=== PATIENT | female | born 1995 | race Caucasian/White ===

== ENCOUNTER 2020-06-02 16:34 | Outpatient (REF) | payer BC, SELFPAY ==
[2020-06-03 14:20] LABS: Chlamydia Result Negative (Negative); GC Result Negative (Negative)
== END 2020-06-02 16:54 ==
LOC: LBN 16:34
PROVIDERS: PCP Nurse Practitioner Family; Visit Provider Nurse Practitioner Family
DX: Z11.3 Encounter for screening for infections with a predominantly sexual mode of transmission (principal)
CPT/HCPCS: 87491; 87591

== ENCOUNTER 2021-04-19 09:02 | Outpatient (REF) | payer BC, SELFPAY ==
--- NOTE | 2021-04-19 08:30 | PAPFT_PTH ---
PATIENT: Noris Stephens LOC: [facility] U#:[id number] AGE/SX: 26/F ROOM: RE04/19/[address]: FLORIDALMA Allen : 1995 BED: DIS: 04/19/2021 SPEC #: [id number] RECD: 04/19/21 13:15 STATUS: ZOE REQ #: [id number] MARICEL: 04/19/21 08:[address]: Abida Arenas DEPT: [facility] Cytology RECD BY: Bridget Lopez Tissues: 1 - CX/ENDOCX FOR PAP SMEARS Procedures: PAP THIN PREP/UVM Screening Comments: [id number]
== END 2021-04-19 09:03 | disposition home or self-care (01) ==
LOC: LBN 09:02
PROVIDERS: PCP Nurse Practitioner Family; Visit Provider Nurse Practitioner Family
DX: Z12.4 Encounter for screening for malignant neoplasm of cervix (principal)
CPT/HCPCS: 88142

== ENCOUNTER 2021-08-13 03:45 | Outpatient (CLI) | payer MEDICAID, SELFPAY ==
[2021-08-13 15:23] LABS: Kit/Specimen SENT
[2021-08-13 15:29] LABS: Abs Immature Grans 0.03 10^3/uL (0.0-0.06); Absolute Basophil Count 0.04 10^3/uL (0.0-0.2); Absolute Eosinophil Count 0.22 10^3/uL (0.0-0.7); Absolute Lymphocyte Count 2.06 10^3/uL (1.2-3.4); Absolute Monocyte Count 0.71 10^3/uL (0.1-0.8); Basophils % 0.4; HCT 41.2 % (36.0-46.0); HGB 13.7 g/dL (11.2-15.7); Immature Grans % 0.3; Lymphocytes % 18.8; MCH 30.5 pg (27.0-33.0); MCHC 33.3 % (32.0-36.0); MCV 91.8 fL (80-95); MPV 11.7 fL (8.0-11.0); Monocytes % 6.5; Nucleated RBC 0 %; Platelet Count 236 10^3/uL (130-400); RBC 4.49 10^6/uL (3.93-5.22); RDW 13.1 % (11.7-14.6); RDW-SD 44.1 fL; WBC 10.95 10^3/uL (4.4-10.8)
[2021-08-13 15:30] LABS: Absolute Neutrophil Count 7.88 10^3/uL (1.2-6.7)
[2021-08-13 16:21] LABS: TSH (W/Ref FT4) 1.55 uIU/mL (0.36-3.74)
[2021-08-16 10:22] LABS: Hepatitis B Surface Ag Negative (Negative)
[2021-08-16 10:34] LABS: Varicella IgG Antibody Positive (See Note)
[2021-08-16 10:40] LABS: Rubella IgG Ab (UVM) Negative (See Note)
[2021-08-16 10:53] LABS: HIV-1/2 Ag & Ab Screen Negative (Negative)
[2021-08-16 11:01] LABS: Hepatitis C Ab w Rflx HCV PCR Negative (Negative)
[2021-08-17 16:49] LABS: Toxoplasma Ab, IgG Negative (Negative); Toxoplasma Ab, IgM Negative (Negative); Toxoplasma IgG Value <3 IU/mL
[2021-08-18 15:53] LABS: Syphilis IgG w/Reflex Nonreactive (Nonreactive)
[2021-08-22 01:04] LABS: Result Summary NEGATIVE; Specimen WB Whole Blood
== END 2021-08-13 03:46 | disposition home or self-care (01) ==
LOC: LBO 03:54
PROVIDERS: PCP Nurse Practitioner Family; Visit Provider Advanced Practice Midwife
DX: Z34.91 Encounter for supervision of normal pregnancy, unspecified, first trimester
CPT/HCPCS: 36415; 86787; 86803; 86850; 86900; 86901; 87340; 87389; 81220; 84443; 85025; 86762; 86777; 86778; 86780

== ENCOUNTER 2021-08-13 16:32 | Outpatient (REF) | payer MEDICAID, SELFPAY ==
[2021-08-13 16:52] LABS: *AMPHETAMINES SCREEN URINE Negative (Negative); *BARBITURATES SCREEN URINE Negative (Negative); *BENZODIAZEPINES SCREEN URINE Negative (Negative); Cannabinoids THC Negative (Negative); Cocaine Screen,Urine Negative (Negative); METHADONE URINE SCREEN Negative (Negative); OPIATES URINE SCREEN Negative (Negative)
[2021-08-13 16:55] LABS: Tricyclic Antidepressants Negative (Negative)
[2021-08-20 11:47] LABS: Buprenorphine Negative ng/mL (Cutoff: 5.0); Norbuprenorphine Negative ng/mL (Cutoff: 2.5)
== END 2021-08-13 16:33 | disposition home or self-care (01) ==
LOC: LBN 16:32
PROVIDERS: PCP Nurse Practitioner Family; Visit Provider Advanced Practice Midwife
DX: Z34.91 Encounter for supervision of normal pregnancy, unspecified, first trimester
CPT/HCPCS: 80307; 87086

== ENCOUNTER 2021-08-23 03:33 | Outpatient (CLI) | payer MEDICAID, SELFPAY ==
[2021-08-23 09:08] LABS: Glucose,1 Hr (Glucola) 80 mg/dL (80-140)
== END 2021-08-23 03:34 | disposition home or self-care (01) ==
LOC: LBO 03:33
PROVIDERS: PCP Nurse Practitioner Family; Visit Provider Advanced Practice Midwife
DX: Z34.91 Encounter for supervision of normal pregnancy, unspecified, first trimester (principal)
CPT/HCPCS: 36415; 82950

== ENCOUNTER 2021-09-13 02:38 | Outpatient (CLI) | payer MEDICAID, SELFPAY ==
[2021-09-15 12:02] LABS: AFP 23.5 ng/mL; Calculated age at EDD 26 years; Cigarette smoking status non-Smoker; GA used in risk estimate Scan estimate; IVF Pregnancy No; Initial or repeat testing Initial testing; Insulin dependent diabetes No; Maternal Weight 190 lbs; Number of Fetuses 1; Physician Phone Number 802-748-7300; Prev Pregnancy w/NTD No; RECOMMENDED FOLLOW UP None.; Results Summary Normal risk
== END 2021-09-13 02:39 | disposition home or self-care (01) ==
LOC: LBO 02:38
PROVIDERS: PCP Nurse Practitioner Family; Visit Provider Advanced Practice Midwife
DX: Z34.92 Encounter for supervision of normal pregnancy, unspecified, second trimester (principal); Z3A.16 16 weeks gestation of pregnancy; Z36.89 Encounter for other specified antenatal screening
CPT/HCPCS: 36415; 82105

== ENCOUNTER 2021-09-13 20:03 | Outpatient (REF) | payer MEDICAID, SELFPAY ==
[2021-09-14 15:34] LABS: Chlamydia Result Negative (Negative); GC Result Negative (Negative)
== END 2021-09-13 20:04 | disposition home or self-care (01) ==
LOC: LBN 20:03
PROVIDERS: PCP Nurse Practitioner Family; Visit Provider Advanced Practice Midwife
DX: Z34.92 Encounter for supervision of normal pregnancy, unspecified, second trimester (principal); Z3A.16 16 weeks gestation of pregnancy
CPT/HCPCS: 87491; 87591

== ENCOUNTER 2021-10-04 00:20 | Outpatient (CLI) | payer MEDICAID, SELFPAY ==
--- NOTE | 2021-10-04 07:30 | DI.US_ITS ---
Exam(s) US OB 2-3 TRIMESTER EXAM: US OB 2-3 TRIMESTER CLINICAL HISTORY: 18 wk anatomy survey,z34.90. TECHNIQUE: Transabdominal obstetrical ultrasound performed. COMPARISON: No exams were available for comparison FINDINGS: Transabdominal obstetrical ultrasound performed. FINDINGS: Number of fetuses: One. position: Variable Placental grade: 0 Placental location: Anterior. No evidence of previa. BIOMETRIC DATA: BPD: 46 millimeters, 20+ 0 weeks HC: 175 millimeters, 20+ 0 weeks AC: 153 millimeters, 20+ 4 weeks FL: 32 millimeters, 20+ 0 weeks Cisterna Magna: 2.5 millimeters Cerebellum: 2 cm EFW: 341 grms 76% Composite Age: 20+ 1 weeks EDC by US: 20 February 2022 Heart Rate: 140BPM Amniotic fluid: Amount of fluid is visually within normal limits. ANATOMICAL SURVEY: Four-chambered heart: Unremarkable. LVOT: Unremarkable. RVOT: Unremarkable. Left-sided stomach: Unremarkable. urinary bladder: Unremarkable. Bilateral kidneys: Unremarkable. Three-vessel cord: Unremarkable. Cord insertion: Unremarkable. Umbilical artery velocity: Unremarkable. Posterior fossa:Unremarkable. ventricles: Unremarkable. nose: Unremarkable. lips: Unremarkable. palate: Unremarkable. spine: Unremarkable. Two arms and two legs: Unremarkable. IMPRESSION: 1. Single live intrauterine gestation measuring 20 weeks 1 day. 2. Normal anatomic survey. DATA REPOSITORY:
== END 2021-10-04 00:40 ==
PROVIDERS: PCP Nurse Practitioner Family; Visit Provider Advanced Practice Midwife
DX: Z34.92 Encounter for supervision of normal pregnancy, unspecified, second trimester (principal); Z3A.20 20 weeks gestation of pregnancy
CPT/HCPCS: 76805

== ENCOUNTER 2021-11-29 03:24 | Outpatient (CLI) | payer MEDICAID, SELFPAY ==
[2021-11-29 16:15] LABS: HCT 38.8 % (36.0-46.0); HGB 12.9 g/dL (11.2-15.7); MCH 29.8 pg (27.0-33.0); MCHC 33.2 % (32.0-36.0); MCV 90 fL (80-95); MPV 10.8 fL (8.0-11.0); Platelet Count 257 10^3/uL (130-400); RBC 4.33 10^6/uL (3.93-5.22); RDW-SD 43.2 fL; WBC 13.36 10^3/uL (4.4-10.8)
[2021-11-29 16:19] LABS: Glucose,1 Hr (Glucola) 106 mg/dL (80-140)
== END 2021-11-29 03:25 | disposition home or self-care (01) ==
LOC: LBO 03:25
PROVIDERS: PCP Nurse Practitioner Family; Visit Provider Advanced Practice Midwife
DX: Z34.93 Encounter for supervision of normal pregnancy, unspecified, third trimester (principal); Z3A.28 28 weeks gestation of pregnancy
CPT/HCPCS: 36415; 82950; 85027

== ENCOUNTER → 2022-01-03 00:53 | Outpatient (CLI) | payer BC, MEDICAID, SELFPAY ==
--- NOTE | 2022-01-03 07:30 | DI.US_ITS ---
Exam(s) US OB ADITI WEIGHT EXAM: US OB ADITI WEIGHT CLINICAL HISTORY: covid infection in ,U07.1,z34.90 TECHNIQUE: Ultrasound performed using standard protocol. COMPARISON: US US OB 2-3 TRIMESTER from 10/04/2021 FINDINGS: Ob ultrasound was performed utilizing 3rd trimester protocol. biometry is consistent with gest ational age 33 weeks 1 day and EDC of February 20. Estimated weight is 2141 grams. Placenta is anterior with no evidence of placenta previa. There is visually a normal quantity of amn iotic fluid and the ADITI is 19. Fetus is in cephalic presentation. heart rate is noted at 161 BPM IMPRESSION: DATA REPOSITORY:
== END ==
PROVIDERS: PCP Nurse Practitioner Family; Visit Provider Advanced Practice Midwife
DX: Z34.93 Encounter for supervision of normal pregnancy, unspecified, third trimester
CPT/HCPCS: 76816

== ENCOUNTER 2022-01-31 18:20 | Outpatient (REF) | payer BC, MEDICAID, SELFPAY ==
[2022-01-31 20:29] LABS: *AMPHETAMINES SCREEN URINE Negative (Negative); *BARBITURATES SCREEN URINE Negative (Negative); *BENZODIAZEPINES SCREEN URINE Negative (Negative); Cannabinoids THC Negative (Negative); Cocaine Screen,Urine Negative (Negative); METHADONE URINE SCREEN Negative (Negative); OPIATES URINE SCREEN Negative (Negative)
[2022-01-31 20:49] LABS: Tricyclic Antidepressants Negative (Negative)
[2022-02-07 13:36] LABS: Buprenorphine Negative ng/mL (Cutoff: 5.0); Norbuprenorphine Negative ng/mL (Cutoff: 2.5)
== END 2022-01-31 18:21 | disposition home or self-care (01) ==
LOC: LBN 18:20
PROVIDERS: PCP Nurse Practitioner Family; Visit Provider Advanced Practice Midwife
DX: Z34.93 Encounter for supervision of normal pregnancy, unspecified, third trimester (principal); Z36.85 Encounter for antenatal screening for Streptococcus B; Z3A.36 36 weeks gestation of pregnancy
CPT/HCPCS: 80307; 87081

== ENCOUNTER 2022-02-14 11:17 | Outpatient (CLI) | payer BC, MEDICAID, SELFPAY ==
[2022-02-14 11:28] VITALS: BP 129/82; PULSE 100; TEMP 37
[2022-02-14 11:44] VITALS: BP 129/82; PULSE 100
--- NOTE | 2022-02-14 12:46 | W.OBNST ---
Date of service: 02/14/22 Time of Service: 12:46 NST Evaluation Reason for NST Reasons for Nonstress Test: OTHER, SEE COMMENT (elevated BP in office x1) Gestational Age Gestational Age in Weeks and Days: 38 Weeks and 5Days Test and Monitor Explained Test/Monitor Explained: Test Explained, Monitor Explained and Patient Verbalized Understanding Vital Signs Blood Pressure: 129/82 Pulse: 100 Temperature: 98.6 F Urine Results Urine Protein: Negative Urine Ketones: Negative Urine Glucose: Negative Urine Blood: Negative NST Information Date on Monitor: 02/14/22 Time on Monitor: 11:20 Date off Monitor: 02/14/22 Time off Monitor: 12:05 Total Time on Monitor: 45 NST Interventions: PO Hydration NST Evaluation Patient States Movement: Present FHR Baseline: 155 Variability: Moderate 6-25 bpm Accelerations: 15x15 Decelerations: None NST Results: Reactive Note NST Note NST Reviewed and Verified by: Barbara Sams
[2022-02-14 12:47] VITALS: BP 129/82; PULSE 100; TEMP 37
== END 2022-02-14 12:08 | disposition home or self-care (01) ==
LOC: BCD 11:19 → OBS 11:26
PROVIDERS: PCP Nurse Practitioner Family; Visit Provider Advanced Practice Midwife
DX: O26.893 Other specified pregnancy related conditions, third trimester (principal); R03.0 Elevated blood-pressure reading, without diagnosis of hypertension; Z3A.38 38 weeks gestation of pregnancy
CPT/HCPCS: 59025

== ENCOUNTER 2022-02-17 08:38 | Outpatient (CLI) | payer BC, MEDICAID, SELFPAY ==
[2022-02-17 09:07] VITALS: BP 128/79; PULSE 79; TEMP 36.4
[2022-02-17 09:15] VITALS: BP 128/79; PULSE 79
[2022-02-17 09:30] VITALS: BP 129/81; PULSE 83
--- NOTE | 2022-02-17 09:41 | W.OBNST ---
Date of service: 02/17/22 Time of Service: 09:30 NST Evaluation Reason for NST Reasons for Nonstress Test: GESTATIONAL HYPERTENSION Gestational Age Gestational Age in Weeks and Days: 39 Weeks and 1Days Test and Monitor Explained Test/Monitor Explained: Test Explained and Monitor Explained Vital Signs Blood Pressure: 128/79 Pulse: 79 Temperature: 97.5 F Urine Results Urine Protein: Negative Urine Ketones: Negative Urine Glucose: Negative Urine Blood: Negative NST Information Date on Monitor: 02/17/22 Time on Monitor: 09:05 Date off Monitor: 02/17/22 Time off Monitor: 09:32 Total Time on Monitor: 27 NST Interventions: PO Hydration NST Evaluation Patient States Movement: Present FHR Baseline: 135 Variability: Moderate 6-25 bpm Accelerations: 15x15 Decelerations: None NST Results: Reactive Note NST Note Note: NST is reactive and reassuring. Patient has no signs of pre-eclampsia. Had elevated BP at home last night of 140/90. Note to be out of work given and patient will return on 02/21 at 0830 for repeat NST and testing if indicated. ALEX NST Reviewed and Verified by: Mary Reyna
[2022-02-17 09:42] VITALS: BP 128/79; PULSE 79; TEMP 36.4
== END 2022-02-17 09:40 | disposition home or self-care (01) ==
LOC: BCD 08:40 → OBS 09:01
PROVIDERS: PCP Nurse Practitioner Family; Visit Provider Advanced Practice Midwife
DX: O13.3 Gestational [pregnancy-induced] hypertension without significant proteinuria, third trimester (principal); Z3A.39 39 weeks gestation of pregnancy
CPT/HCPCS: 59025

== ENCOUNTER 2022-02-21 09:29 | Inpatient (IN) | payer BC, MEDICAID, SELFPAY ==
[2022-02-21] VITALS (14 sets, daily range): BP systolic 125–157; BP diastolic 74–93; PULSE 82–105; RESP 16–18; TEMP 36.6–37.3; O2SAT 99
[2022-02-21 09:48] LABS: Source Nasal/Nares
[2022-02-21 09:50] LABS: HCT 40.1 % (36.0-46.0); HGB 13.1 g/dL (11.2-15.7); MCHC 32.7 % (32.0-36.0); MCV 89 fL (80-95); MPV 12.3 fL (8.0-11.0); Platelet Count 206 10^3/uL (130-400); RBC 4.51 10^6/uL (3.93-5.22); RDW 14.8 % (11.7-14.6); WBC 8.75 10^3/uL (4.4-10.8)
--- NOTE | 2022-02-21 09:54 | HPE_ITS ---
Date of service: 02/21/22 Time of Service: 09:54 Assessment and Plan Assessment and plan (1) Gestational hypertension without significant proteinuria in third trimester: Status: Acute Assessment and plan: 1. Admit for induction of labor due to GHTN 2. NST done and reactive 3. COVID screen, CBC, CMP, Uric acid, LDH and type and screen as well as pro/creat ratio to be done 4. Reviewed cervical ripening options with patient, will plan misoprostol 25 mcg to posterior fornix of cervix every 4 hours at this time. 5. Patient is planning nitrous and or epidural for pain management. 6. Bedside US confirms cephalic presentation as presenting part is -3. 7. Expect NVD. KH OB-HPI Labor/Delivery History of Present Illness Reason for Visit: Gestational hypertension in third trimester Chief Complaint: Other (unscheduled induction of labor). JAMIE Calculator Estimated Delivery Date Method Current WG Current Estimate 02/23/22 LMP (Certain) 39w 5d Other Estimates 02/28/22 Ultrasound #1 39w 0d History of Present Expected Delivery Route/Plan - CNM FOB/ - Jose Nunescamille (first child) BB yes to circ Rubella non immune, offer MMR Jose and her mother Jayne for labor support, desires epidural and nitrous oxide. GBS negative Specific Issues/Plan 1. BMI 35, early glucola=80 2. Desires all cfDNA, CF & AFP screens, also want SMA testing when available 2a. CF neg, Panorama low prob x5 male fetus; AFP=nml risk for NTD 3. Low dose ASA 81mg/162mg alternating for Nulliparity and BMI of 35 4. Hx PCN and cephalosprin allergies, referral to [facility] Allergy: telehealth appt 09/27 4a. Patient will schedule her allergy testing per consult note scheduled for November 09 4b. No reaction to skin testing - Audra is declining oral testing at this time. 5. Rubella non-immune - discussed w/pt, accepts vaccine 6. COVID+ on home test 08/27 (is vaccinated), already taking low dose ASA, 32 wk growth: 2141 gms/56%ile @ 33 wks, ADITI=19 7. Referral to [facility] due to history of SAD and her concern for potential PPD___ 8. Back pain - referred to PT, stretches taught 9. Out of work 02/17 due to elevated BP's NST 02/21 Assessment: History Reviewed & Current Informed Consent Informed Consent: Induction of Labor and Risk,Benefits,Alternatives Discussed Review of Systems All systems reviewed & are unremarkable except as noted in HPI and below (no BAILEY, visual disturbance ) PFSH All Active Problems Gestational hypertension without significant proteinuria in third trimester (Acute) Low back pain (Acute) (Acute) Seasonal affective disorder (Acute) Per Patient COVID-19 virus infection (Acute) Anitgen test+ on 08/27, pt vaccinated and boosted, mild sx Rubella non-immune status, antepartum (Acute) Cephalosporin adverse reaction (Acute) History of penicillin-type antibiotic allergy (Acute) BMI 35.0-35.9,adult (Acute) (Acute) Asthma (Chronic) Medical History Encounter for IUD insertion Family history of MRSA infection has had MRSA infections twice Family History Father Well adult Mother Well adult Paternal Aunt Breast cancer Social History Smoking risk assessment performed?: No History History 1 Para 0 Hx # Term Pregnancies 0 Multiple births 0 Hx # Pregnancies 0 Ectopic pregnancies 0 AB induced 0 Hx Number of Living Children 0 AB spontaneous 0 Meds Allergies and Home Medications Allergies Allergy/AdvReac Type Severity Reaction Status Date / Time Tide Laundry Soap AdvReac Unknown Uncoded 02/21/22 10:02 Home Medications Medication Instructions Recorded Confirmed Type albuterol sulfate 90 mcg/actuation 2 inh inhalation Q6H PRN 06/02/20 02/21/22 History breath activated powder inhaler prenat.vits,maciej,ccy-[id number] 1 tab PO DAILY 06/23/21 02/21/22 History aspirin 81 mg tablet,delayed 81 mg PO DAILY #90 tabs 08/13/21 02/21/22 Rx release Exam Physical Exam Vital signs: Pulse BP 96 H 135/93 H 02/21/22 08:55 02/21/22 08:55 Vital Signs Reviewed: Yes Constitutional Constitutional: no acute distress and average body habitus Detailed Labor and Delivery Exam Dilation: 0 Effacement (%): 50 station: -3 Cervix position: mid Consistency: soft Becerra Score: Cervical Points Exam 0 1 2 3 Dilation Closed 1-2cm 3-4 cm 5-6cm Effacement 0-30% 40-50% 60-70% 80% Consistency Firm Medium Soft Station -3 -2 -1,0 +1,+2 Position Posterior Mid Anterior BECERRA Score(Cervical Ripeness Score): 4 Amniotic Membrane Status: Intact Contraction Frequency(min): 0 Fetus A Heart Rate Baseline: 125 Monitor Accelerations: 15 X 15 Monitor Decelerations: None Variability: Moderate (6-25 BPM) Est. Weight: 7 lb HEENT Exam HEENT Exam: Normal Neck Exam Neck Exam: Normal Chest/Brest/Axilla Exam Chest Exam: Normal Breast Exam Breast Exam: Not Done Respiratory Exam Respiratory Exam: Normal Cardiovascular Exam Cardiovascular Exam: Abnormal (BP elevated but not SRBP) Abdominal Exam Abdominal Exam: Normal (gravid uterus, US confirmed cephalic presentation, ROT) Rectal Exam Rectal Exam: Not Done Exam Exam: Normal Extremities Exam Extremities Exam: Normal Back/Spine/Pelvis Exam Back Exam: Not Done Pelvis Adequate: Yes Skin Exam Skin Exam: Normal Neurological Exam Neurological Exam: Normal Psychiatric Exam Psychiatric Exam: Normal Results Results Group Beta Strep: Negative Blood Type: A+ Rubella Status: Nonimmune Varicella Immunity: Immune Lab Results: GC CT neg, Hep B and C neg, HIV neg, Panorama cfDNA LR male, second trimester AFP for ONTD neg, early glucose test 80, 28 week glucose test 106, CF neg. Abnormal Lab Findings: Abnormal Labs 02/21/22 09:40 RDW 14.8 H MPV 12.3 H Risk Assessment Risk for Shoulder Dystocia Historical/Initial OB: POSITIVE FOR: Pre- BMI>30; NEGATIVE FOR: Pelvic Abnormality, Previous Shoulder Dystocia or Previous Macrosomia 40 Weeks: NEGATIVE FOR: EFW> 4500 gms, Maternal Weight Gain >40lb or Post Dates Delivery Plan @ 36wks: vaginal delivery expected. Delivery Plan @ 40 wks: vaginal delivery expected. Risk for Pre-Eclampsia Date Initiated/Initials: to start now (@ 12 wks) JK Yes, if one or more: NEGATIVE FOR: Hx Pre-E/Gest HTN, Chronic HTN, Multiple Gestation, Pre-gestational DM, Renal Disease, Systemic Lupus or APA Syndrome Yes, if 2 or more: POSITIVE FOR: Nulliparity and BMI>30; NEGATIVE FOR: Age>= 35 yrs, >10yr btwn pregnancies, ethinicty, Mother/Sister w/ Pre-E or Previous IUGR Risk for Post- Hemorrhage Initial: NEGATIVE FOR: Multiple Gestation, Previous PPH, Known Clotting Deficiency, Grand Multiparity or Anticoagulation At Risk?: Yes (induction of labor for GHTN. ALEX) Counseled re: Active Management: Yes Date/Initials: 02/12/22 ALEX Risks Reviewed Risks Reviewed Upon Admission: Yes
[2022-02-21 10:13] LABS: ALT 17 U/L (14-59); AST 26 U/L (15-37); Albumin 2.5 g/dL (3.4-5.0); Alkaline Phosphatase 155 U/L (46-116); Anion Gap 7.5 mmol/L (3-11); BUN 7 mg/dL (7-18); Bilirubin, Total 0.3 mg/dL (0.2-1.0); CO2 25.5 mmol/L (21.0-32.0); CREATININE 0.7 mg/dL (0.55-1.02); Chloride 101 mmol/L (98-107); Estimated GFR 122.25 (mL/min/1.73m2); Glucose 83 mg/dL (74-106); LDH 148 U/L (81-234); Potassium 4.4 mmol/L (3.5-5.1); Sodium 134 mmol/L (136-145); Total Protein 6.6 g/dL (6.4-8.2); Uric Acid 4.8 mg/dL (2.6-6.0)
[2022-02-21 10:23] LABS: COVID-19 PCR Negative (Negative)
[2022-02-21] MEDS: miSOPROStol 25 MCG TAB VG ×4 (10:42→23:03)
[2022-02-21] MEDS: Lactated Ringers 1,000 ML 1000 ML IV (10:46)
[2022-02-21] MEDS: Normal Saline Flush 10 ML SYR IVP (11:12)
--- NOTE | 2022-02-21 11:57 | W.OBNST ---
Date of service: 02/21/22 Time of Service: 09:00 NST Evaluation Reason for NST Reasons for Nonstress Test: GESTATIONAL HYPERTENSION Gestational Age Gestational Age in Weeks and Days: 39 Weeks and 5Days Test and Monitor Explained Test/Monitor Explained: Test Explained Vital Signs Blood Pressure: 140/92 Pulse: 101 Temperature: 98.2 F Urine Results Urine Protein: Positive Urine Ketones: Positive Urine Glucose: Negative Urine Blood: Negative NST Information Date on Monitor: 02/21/22 Time on Monitor: 08:27 Date off Monitor: 02/21/22 Time off Monitor: 08:59 Total Time on Monitor: 32 NST Interventions: None Contraction Frequency: None NST Evaluation Patient States Movement: Present FHR Baseline: 135 Variability: Moderate 6-25 bpm Accelerations: 15x15 Decelerations: None NST Results: Reactive Note NST Note Note: NST is reactive and reassuring. Admitted for IOL due to GHTN. ALEX NST Reviewed and Verified by: Mary Reyna
--- NOTE | 2022-02-21 14:55 | W.PM.OBNL1 ---
Date of service: 02/21/22 Time of Service: 14:55 Informed Consent Informed Consent: Induction of Labor and Risk,Benefits,Alternatives Discussed Pelvic Exam Dilation: 0 Effacement (%): 50 station: -2 Cervix Position: mid Consistency: soft Contractions Monitor Mode: External Contraction Frequency(min): 2-3 Contraction Duration(sec): 40-50 Intensity: Mild Fetus A Monitor: Novii Heart Rate Baseline: 145 Variability: Moderate (6-25 BPM) Categories: Category I Accelerations: 15 X 15 Decelerations: None Assessment and Plan Assessment and plan (1) Gestational hypertension without significant proteinuria in third trimester: Status: Acute Assessment and plan: 1. Dose #2 of Misoprostol 25 mcg placed at cervical fornix 2. Continue present management and reassess in 4 hours or prn. KH Objective Abnormal lab results 02/21/22 02/21/22 Range/Units 09:40 09:40 RDW 14.8 H (11.7-14.6) % MPV 12.3 H (8.0-11.0) fL Sodium 134 L (136-145) mmol/L Alkaline Phosphatase 155 H (46-116) U/L Albumin 2.5 L (3.4-5.0) g/dL Temp Pulse Resp BP Pulse Ox 98.2 F 96 H 16 132/87 99 02/21/22 11:24 02/21/22 14:53 02/21/22 11:24 02/21/22 14:53 02/21/22 09:57 Laboratory Results WBC 8.75 10^3/uL (4.4-10.8) 02/21/22 09:40 RBC 4.51 10^6/uL (3.93-5.22) 02/21/22 09:40 Hgb 13.1 g/dL (11.2-15.7) 02/21/22 09:40 Hct 40.1 % (36.0-46.0) 02/21/22 09:40 MCV 89 fL (80-95) 02/21/22 09:40 MCH 29.0 pg (27.0-33.0) 02/21/22 09:40 MCHC 32.7 % (32.0-36.0) 02/21/22 09:40 RDW 14.8 % (11.7-14.6) H 02/21/22 09:40 Plt Count 206 10^3/uL (130-400) 02/21/22 09:40 MPV 12.3 fL (8.0-11.0) H 02/21/22 09:40 Sodium 134 mmol/L (136-145) L 02/21/22 09:40 Potassium 4.4 mmol/L (3.5-5.1) 02/21/22 09:40 Chloride 101 mmol/L (98-107) 02/21/22 09:40 Carbon Dioxide 25.5 mmol/L (21.0-32.0) 02/21/22 09:40 Anion Gap 7.5 mmol/L (3-11) 02/21/22 09:40 BUN 7 mg/dL (7-18) 02/21/22 09:40 Creatinine 0.7 mg/dL (0.55-1.02) 02/21/22 09:40 Est GFR (CKD-EPI 2020) 122.25 (mL/min/1.73m2) 02/21/22 09:40 Glucose 83 mg/dL (74-106) 02/21/22 09:40 Uric Acid 4.8 mg/dL (2.6-6.0) 02/21/22 09:40 Calcium 9.0 mg/dL (8.5-10.1) 02/21/22 09:40 Total Bilirubin 0.3 mg/dL (0.2-1.0) 02/21/22 09:40 AST 26 U/L (15-37) 02/21/22 09:40 ALT 17 U/L (14-59) 02/21/22 09:40 Alkaline Phosphatase 155 U/L (46-116) H 02/21/22 09:40 Lactate Dehydrogenase 148 U/L (81-234) 02/21/22 09:40 Total Protein 6.6 g/dL (6.4-8.2) 02/21/22 09:40 Albumin 2.5 g/dL (3.4-5.0) L 02/21/22 09:40 COVID-19 Source Nasal/Nares 02/21/22 09:30 SARS-CoV-2 (PCR) Negative (Negative) 02/21/22 09:30 Patient ABO/Rh A Positive 02/21/22 09:40 Antibody Screen NEGATIVE 02/21/22 09:40 Vital Signs Reviewed: Yes Subjective Interval history since last seen: Feeling cramping but doing well. No questions. Results Hemoglobin/Hematocrit: Hgb 13.1 g/dL (11.2-15.7) 02/21/22 09:40 Hct 40.1 % (36.0-46.0) 02/21/22 09:40 Abnormal Lab Findings: Abnormal Labs 02/21/22 02/21/22 09:40 09:40 RDW 14.8 H MPV 12.3 H Sodium 134 L Alkaline Phosphatase 155 H Albumin 2.5 L
[2022-02-21 18:46] LABS: COMMENT (LAB VIEW ONLY) 35.13 mg/dL; PROTEIN < 6.0 mg/dL
--- NOTE | 2022-02-21 19:06 | PGE_ITS ---
Date of service: 02/21/22 Time of Service: 19:00 Informed Consent Informed Consent: Induction of Labor and Risk,Benefits,Alternatives Discussed Pelvic Exam Dilation: 1 Effacement (%): 60 station: -2 Cervix Position: posterior Consistency: soft BISHOPS Score(Cervical Ripeness Score): 5 Contractions Monitor Mode: External Contraction Frequency(min): 2-8 Contraction Duration(sec): 30-50 Intensity: Mild Fetus A Monitor: Novii Heart Rate Baseline: 150 Variability: Moderate (6-25 BPM) Categories: Category I Accelerations: 10 X 10 Decelerations: None Amniotic Membrane Status: Intact Assessment and Plan Assessment and plan (1) Gestational hypertension without significant proteinuria in third trimester: Status: Acute Assessment and plan: 1. Dose #3 of misoprostol 25 mcg placed in posterior fornix of cervix. 2. Reassess in 4 hours or prn. KH Objective Abnormal lab results 02/21/22 02/21/22 Range/Units 09:40 09:40 RDW 14.8 H (11.7-14.6) % MPV 12.3 H (8.0-11.0) fL Sodium 134 L (136-145) mmol/L Alkaline Phosphatase 155 H (46-116) U/L Albumin 2.5 L (3.4-5.0) g/dL Temp Pulse Resp BP Pulse Ox 98.4 F 105 H 16 140/93 H 99 02/21/22 14:53 02/21/22 18:42 02/21/22 14:53 02/21/22 18:42 02/21/22 09:57 Laboratory Results WBC 8.75 10^3/uL (4.4-10.8) 02/21/22 09:40 RBC 4.51 10^6/uL (3.93-5.22) 02/21/22 09:40 Hgb 13.1 g/dL (11.2-15.7) 02/21/22 09:40 Hct 40.1 % (36.0-46.0) 02/21/22 09:40 MCV 89 fL (80-95) 02/21/22 09:40 MCH 29.0 pg (27.0-33.0) 02/21/22 09:40 MCHC 32.7 % (32.0-36.0) 02/21/22 09:40 RDW 14.8 % (11.7-14.6) H 02/21/22 09:40 Plt Count 206 10^3/uL (130-400) 02/21/22 09:40 MPV 12.3 fL (8.0-11.0) H 02/21/22 09:40 Sodium 134 mmol/L (136-145) L 02/21/22 09:40 Potassium 4.4 mmol/L (3.5-5.1) 02/21/22 09:40 Chloride 101 mmol/L (98-107) 02/21/22 09:40 Carbon Dioxide 25.5 mmol/L (21.0-32.0) 02/21/22 09:40 Anion Gap 7.5 mmol/L (3-11) 02/21/22 09:40 BUN 7 mg/dL (7-18) 02/21/22 09:40 Creatinine 0.7 mg/dL (0.55-1.02) 02/21/22 09:40 Est GFR (CKD-EPI 2020) 122.25 (mL/min/1.73m2) 02/21/22 09:40 Glucose 83 mg/dL (74-106) 02/21/22 09:40 Uric Acid 4.8 mg/dL (2.6-6.0) 02/21/22 09:40 Calcium 9.0 mg/dL (8.5-10.1) 02/21/22 09:40 Total Bilirubin 0.3 mg/dL (0.2-1.0) 02/21/22 09:40 AST 26 U/L (15-37) 02/21/22 09:40 ALT 17 U/L (14-59) 02/21/22 09:40 Alkaline Phosphatase 155 U/L (46-116) H 02/21/22 09:40 Lactate Dehydrogenase 148 U/L (81-234) 02/21/22 09:40 Total Protein 6.6 g/dL (6.4-8.2) 02/21/22 09:40 Albumin 2.5 g/dL (3.4-5.0) L 02/21/22 09:40 Ur Random Creatinine 35.13 mg/dL 02/21/22 10:45 U Random Total Protein < 6.0 mg/dL 02/21/22 10:45 U [place] Prot/Creat Ratio 02/21/22 10:45 COVID-19 Source Nasal/Nares 02/21/22 09:30 SARS-CoV-2 (PCR) Negative (Negative) 02/21/22 09:30 Patient ABO/Rh A Positive 02/21/22 09:40 Antibody Screen NEGATIVE 02/21/22 09:40 Subjective Interval history since last seen: Audra reports contractions are more frequent and a little more uncomfortable. Agrees to 3rd dose of misoprostol. KH Results Hemoglobin/Hematocrit: Hgb 13.1 g/dL (11.2-15.7) 02/21/22 09:40 Hct 40.1 % (36.0-46.0) 02/21/22 09:40 Abnormal Lab Findings: Abnormal Labs 02/21/22 02/21/22 09:40 09:40 RDW 14.8 H MPV 12.3 H Sodium 134 L Alkaline Phosphatase 155 H Albumin 2.5 L
[2022-02-21] MEDS: Zolpidem 5 MG TAB 10 MG PO (23:09)
--- NOTE | 2022-02-21 23:12 | PGE_ITS ---
Date of service: 02/21/22 Time of Service: 23:05 Informed Consent Informed Consent: Induction of Labor and Risk,Benefits,Alternatives Discussed Pelvic Exam Dilation: 1 Effacement (%): 60 station: -2 Cervix Position: posterior Contractions Monitor Mode: External Contraction Frequency(min): 2-8 Contraction Duration(sec): 30-50 Intensity: Mild Fetus A Monitor: Novii Heart Rate Baseline: 150 Variability: Moderate (6-25 BPM) Categories: Category I Assessment and Plan Assessment and plan (1) Gestational hypertension without significant proteinuria in third trimester: Status: Acute Assessment and plan: 1. dose #4 misoprostol placed vaginally 2. Ambien 10 mg PO given 3. Encouraged patient to rest and sleep 4. Will not wake patient for another intervention until 0600 when she will shower and eat breakfast and we will reassess, consider cervidil at that time. 5. Will have BP checked every 4 hours while awake over night unless patient is awake and puts call espinosa on, encouraged her to put espinosa on to get out of bed due to Ambien as well. KH Objective Abnormal lab results 02/21/22 02/21/22 Range/Units 09:40 09:40 RDW 14.8 H (11.7-14.6) % MPV 12.3 H (8.0-11.0) fL Sodium 134 L (136-145) mmol/L Alkaline Phosphatase 155 H (46-116) U/L Albumin 2.5 L (3.4-5.0) g/dL Temp Pulse Resp BP Pulse Ox 99.1 F 87 18 157/81 H 99 02/21/22 21:01 02/21/22 23:10 02/21/22 21:01 02/21/22 23:10 02/21/22 09:57 Laboratory Results WBC 8.75 10^3/uL (4.4-10.8) 02/21/22 09:40 RBC 4.51 10^6/uL (3.93-5.22) 02/21/22 09:40 Hgb 13.1 g/dL (11.2-15.7) 02/21/22 09:40 Hct 40.1 % (36.0-46.0) 02/21/22 09:40 MCV 89 fL (80-95) 02/21/22 09:40 MCH 29.0 pg (27.0-33.0) 02/21/22 09:40 MCHC 32.7 % (32.0-36.0) 02/21/22 09:40 RDW 14.8 % (11.7-14.6) H 02/21/22 09:40 Plt Count 206 10^3/uL (130-400) 02/21/22 09:40 MPV 12.3 fL (8.0-11.0) H 02/21/22 09:40 Sodium 134 mmol/L (136-145) L 02/21/22 09:40 Potassium 4.4 mmol/L (3.5-5.1) 02/21/22 09:40 Chloride 101 mmol/L (98-107) 02/21/22 09:40 Carbon Dioxide 25.5 mmol/L (21.0-32.0) 02/21/22 09:40 Anion Gap 7.5 mmol/L (3-11) 02/21/22 09:40 BUN 7 mg/dL (7-18) 02/21/22 09:40 Creatinine 0.7 mg/dL (0.55-1.02) 02/21/22 09:40 Est GFR (CKD-EPI 2020) 122.25 (mL/min/1.73m2) 02/21/22 09:40 Glucose 83 mg/dL (74-106) 02/21/22 09:40 Uric Acid 4.8 mg/dL (2.6-6.0) 02/21/22 09:40 Calcium 9.0 mg/dL (8.5-10.1) 02/21/22 09:40 Total Bilirubin 0.3 mg/dL (0.2-1.0) 02/21/22 09:40 AST 26 U/L (15-37) 02/21/22 09:40 ALT 17 U/L (14-59) 02/21/22 09:40 Alkaline Phosphatase 155 U/L (46-116) H 02/21/22 09:40 Lactate Dehydrogenase 148 U/L (81-234) 02/21/22 09:40 Total Protein 6.6 g/dL (6.4-8.2) 02/21/22 09:40 Albumin 2.5 g/dL (3.4-5.0) L 02/21/22 09:40 Ur Random Creatinine 35.13 mg/dL 02/21/22 10:45 U Random Total Protein < 6.0 mg/dL 02/21/22 10:45 U [place] Prot/Creat Ratio 02/21/22 10:45 COVID-19 Source Nasal/Nares 02/21/22 09:30 SARS-CoV-2 (PCR) Negative (Negative) 02/21/22 09:30 Patient ABO/Rh A Positive 02/21/22 09:40 Antibody Screen NEGATIVE 02/21/22 09:40 Subjective Interval history since last seen: continues to have mild contractions but able to rest through them. agrees to Ambien and placement of dose #4 misoprostol 25 mcg vaginally. KH Results Hemoglobin/Hematocrit: Hgb 13.1 g/dL (11.2-15.7) 02/21/22 09:40 Hct 40.1 % (36.0-46.0) 02/21/22 09:40 Abnormal Lab Findings: Abnormal Labs 02/21/22 02/21/22 09:40 09:40 RDW 14.8 H MPV 12.3 H Sodium 134 L Alkaline Phosphatase 155 H Albumin 2.5 L
[2022-02-22] VITALS (14 sets, daily range): BP systolic 122–152; BP diastolic 73–98; PULSE 80–113; RESP 18–22; TEMP 36.4–36.9; O2SAT 99–100
--- NOTE | 2022-02-22 07:29 | PGE_ITS ---
Date of service: 02/22/22 Time of Service: 07:10 Informed Consent Informed Consent: Induction of Labor and Risk,Benefits,Alternatives Discussed Pelvic Exam Comments: deferred. KH Contractions Monitor Mode: External Contraction Frequency(min): irregular 1-6 Contraction Duration(sec): 30-50 Intensity: Mild Fetus A Monitor: Novii Heart Rate Baseline: 145 Variability: Moderate (6-25 BPM) Categories: Category I Assessment and Plan Assessment and plan (1) Gestational hypertension without significant proteinuria in third trimester: Status: Acute Assessment and plan: 1. Reviewed options for induction, we plan to do misoprostol 50 mcg SL and reassess in 4 hours. this will be total 150 mcg since beginning of induction. Objective Abnormal lab results 02/21/22 02/21/22 Range/Units 09:40 09:40 RDW 14.8 H (11.7-14.6) % MPV 12.3 H (8.0-11.0) fL Sodium 134 L (136-145) mmol/L Alkaline Phosphatase 155 H (46-116) U/L Albumin 2.5 L (3.4-5.0) g/dL Temp Pulse Resp BP Pulse Ox 98.4 F 113 H 18 142/85 H 99 02/22/22 04:35 02/22/22 06:33 02/22/22 04:35 02/22/22 06:33 02/21/22 09:57 Laboratory Results WBC 8.75 10^3/uL (4.4-10.8) 02/21/22 09:40 RBC 4.51 10^6/uL (3.93-5.22) 02/21/22 09:40 Hgb 13.1 g/dL (11.2-15.7) 02/21/22 09:40 Hct 40.1 % (36.0-46.0) 02/21/22 09:40 MCV 89 fL (80-95) 02/21/22 09:40 MCH 29.0 pg (27.0-33.0) 02/21/22 09:40 MCHC 32.7 % (32.0-36.0) 02/21/22 09:40 RDW 14.8 % (11.7-14.6) H 02/21/22 09:40 Plt Count 206 10^3/uL (130-400) 02/21/22 09:40 MPV 12.3 fL (8.0-11.0) H 02/21/22 09:40 Sodium 134 mmol/L (136-145) L 02/21/22 09:40 Potassium 4.4 mmol/L (3.5-5.1) 02/21/22 09:40 Chloride 101 mmol/L (98-107) 02/21/22 09:40 Carbon Dioxide 25.5 mmol/L (21.0-32.0) 02/21/22 09:40 Anion Gap 7.5 mmol/L (3-11) 02/21/22 09:40 BUN 7 mg/dL (7-18) 02/21/22 09:40 Creatinine 0.7 mg/dL (0.55-1.02) 02/21/22 09:40 Est GFR (CKD-EPI 2020) 122.25 (mL/min/1.73m2) 02/21/22 09:40 Glucose 83 mg/dL (74-106) 02/21/22 09:40 Uric Acid 4.8 mg/dL (2.6-6.0) 02/21/22 09:40 Calcium 9.0 mg/dL (8.5-10.1) 02/21/22 09:40 Total Bilirubin 0.3 mg/dL (0.2-1.0) 02/21/22 09:40 AST 26 U/L (15-37) 02/21/22 09:40 ALT 17 U/L (14-59) 02/21/22 09:40 Alkaline Phosphatase 155 U/L (46-116) H 02/21/22 09:40 Lactate Dehydrogenase 148 U/L (81-234) 02/21/22 09:40 Total Protein 6.6 g/dL (6.4-8.2) 02/21/22 09:40 Albumin 2.5 g/dL (3.4-5.0) L 02/21/22 09:40 Ur Random Creatinine 35.13 mg/dL 02/21/22 10:45 U Random Total Protein < 6.0 mg/dL 02/21/22 10:45 U [place] Prot/Creat Ratio 02/21/22 10:45 COVID-19 Source Nasal/Nares 02/21/22 09:30 SARS-CoV-2 (PCR) Negative (Negative) 02/21/22 09:30 Patient ABO/Rh A Positive 02/21/22 09:40 Antibody Screen NEGATIVE 02/21/22 09:40 Subjective Interval history since last seen: Audra was able to sleep well between midnight and 6. She is showered and feeling ready to move on with induction today. Denies questions. KH Results Hemoglobin/Hematocrit: Hgb 13.1 g/dL (11.2-15.7) 02/21/22 09:40 Hct 40.1 % (36.0-46.0) 02/21/22 09:40 Abnormal Lab Findings: Abnormal Labs 02/21/22 02/21/22 09:40 09:40 RDW 14.8 H MPV 12.3 H Sodium 134 L Alkaline Phosphatase 155 H Albumin 2.5 L
[2022-02-22] MEDS: miSOPROStol 50 MCG TAB SL (07:41)
--- NOTE | 2022-02-22 13:38 | PGE_ITS ---
Date of service: 02/22/22 Time of Service: 13:38 Informed Consent Informed Consent: Induction of Labor (cook catheter) and Risk,Benefits,Alternatives Discussed Pelvic Exam Dilation: 1.5 Effacement (%): 60 station: -2 Cervix Position: mid Consistency: medium (now that provider can insert exam finger through cervix, internal os is medium consistency, external os is soft. KH) BISHOPS Score(Cervical Ripeness Score): 6 Contractions Monitor Mode: External Contraction Frequency(min): 5-10 Contraction Duration(sec): 20-50 Intensity: Mild/Moderate Fetus A Monitor: Novii Heart Rate Baseline: 140 Variability: Moderate (6-25 BPM) Categories: Category I Accelerations: 15 X 15 Decelerations: None Amniotic Membrane Status: Intact Assessment and Plan Assessment and plan (1) Gestational hypertension without significant proteinuria in third trimester: Status: Acute Assessment and plan: 1. continuing cervical ripening, Cook catheter placed after shared decision making session reviewing options of cervical ripening and induction. Patient agrees to mechanical ripening and if needed in 1 hour another dose of SL misoprostol 50 mcg 2. Catheter placed and both uterine and vaginal balloons are filled with 60cc of NS and tolerated well. 3. FHR tracing remains CAT I 4. Tyleonol 650 mg PO for discomfort and may use nitrous if needed. 5. will reassess in 4 hours or as indicated by maternal status. KH Objective Temp Pulse Resp BP Pulse Ox 98.2 F 97 H 20 143/73 H 99 02/22/22 12:55 02/22/22 13:05 02/22/22 12:55 02/22/22 13:05 02/21/22 09:57 Laboratory Results WBC Cancelled 02/22/22 13:22 RBC Cancelled 02/22/22 13:22 Hgb Cancelled 02/22/22 13:22 Hct Cancelled 02/22/22 13:22 MCV Cancelled 02/22/22 13:22 MCH Cancelled 02/22/22 13:22 MCHC Cancelled 02/22/22 13:22 RDW Cancelled 02/22/22 13:22 Plt Count Cancelled 02/22/22 13:22 MPV Cancelled 02/22/22 13:22 Sodium 134 mmol/L (136-145) L 02/21/22 09:40 Potassium 4.4 mmol/L (3.5-5.1) 02/21/22 09:40 Chloride 101 mmol/L (98-107) 02/21/22 09:40 Carbon Dioxide 25.5 mmol/L (21.0-32.0) 02/21/22 09:40 Anion Gap 7.5 mmol/L (3-11) 02/21/22 09:40 BUN 7 mg/dL (7-18) 02/21/22 09:40 Creatinine 0.7 mg/dL (0.55-1.02) 02/21/22 09:40 Est GFR (CKD-EPI 2020) 122.25 (mL/min/1.73m2) 02/21/22 09:40 Glucose 83 mg/dL (74-106) 02/21/22 09:40 Uric Acid 4.8 mg/dL (2.6-6.0) 02/21/22 09:40 Calcium 9.0 mg/dL (8.5-10.1) 02/21/22 09:40 Total Bilirubin 0.3 mg/dL (0.2-1.0) 02/21/22 09:40 AST 26 U/L (15-37) 02/21/22 09:40 ALT 17 U/L (14-59) 02/21/22 09:40 Alkaline Phosphatase 155 U/L (46-116) H 02/21/22 09:40 Lactate Dehydrogenase 148 U/L (81-234) 02/21/22 09:40 Total Protein 6.6 g/dL (6.4-8.2) 02/21/22 09:40 Albumin 2.5 g/dL (3.4-5.0) L 02/21/22 09:40 Ur Random Creatinine 35.13 mg/dL 02/21/22 10:45 U Random Total Protein < 6.0 mg/dL 02/21/22 10:45 U [place] Prot/Creat Ratio 02/21/22 10:45 COVID-19 Source Nasal/Nares 02/21/22 09:30 SARS-CoV-2 (PCR) Negative (Negative) 02/21/22 09:30 Patient ABO/Rh Cancelled 02/22/22 13:22 Antibody Screen NEGATIVE 02/21/22 09:40 Subjective Interval history since last seen: Patient is happy to move forward with another method of cervical ripening due to no cervical changes. After reviewing cook catheter, more misoprostol, combination cook catheter and misoprostol in 1 hour if needed, or attempt at pitocin, patient prefers to try cook catheter and misoprostol 50 mcg in 1 hour if needed. KH Results Hemoglobin/Hematocrit: Hgb Cancelled 02/22/22 13:22 Hct Cancelled 02/22/22 13:22 Abnormal Lab Findings: Abnormal Labs 02/21/22 02/21/22 09:40 09:40 RDW 14.8 H MPV 12.3 H Sodium 134 L Alkaline Phosphatase 155 H Albumin 2.5 L Procedure Procedures: Cervical Ripening Cervical Ripening: Martinez Bulb (cook catheter)
[2022-02-22] MEDS: Acetaminophen 325 MG TAB 650 MG PO ×2 (14:02→19:51)
--- NOTE | 2022-02-22 14:25 | W.PM.OBNL1 ---
Date of service: 02/22/22 Time of Service: 14:25 Informed Consent Informed Consent: Induction of Labor (cook catheter, pitocin) and Risk,Benefits,Alternatives Discussed Pelvic Exam Comments: VE deferred Contractions Monitor Mode: External Contraction Frequency(min): irregular Contraction Duration(sec): irregular Intensity: Mild Fetus A Monitor: Novii Heart Rate Baseline: 145 Variability: Moderate (6-25 BPM) Categories: Category I Accelerations: Present Decelerations: None Amniotic Membrane Status: Intact Assessment and Plan Assessment and plan (1) Gestational hypertension without significant proteinuria in third trimester: Status: Acute Assessment and plan: 1. Plan is to not give misoprostol 50 mcg at 1430 but to change to pitocin as misoprostol has not been effective and patient prefers this plan of care. 2. Risks and benefits have been reviewed 3. Continue to assess every few hours or as indicated by maternal/ status. KH Objective Temp Pulse Resp BP Pulse Ox 98.2 F 97 H 20 143/73 H 99 02/22/22 12:55 02/22/22 13:05 02/22/22 12:55 02/22/22 13:05 02/21/22 09:57 Laboratory Results WBC Cancelled 02/22/22 13:22 RBC Cancelled 02/22/22 13:22 Hgb Cancelled 02/22/22 13:22 Hct Cancelled 02/22/22 13:22 MCV Cancelled 02/22/22 13:22 MCH Cancelled 02/22/22 13:22 MCHC Cancelled 02/22/22 13:22 RDW Cancelled 02/22/22 13:22 Plt Count Cancelled 02/22/22 13:22 MPV Cancelled 02/22/22 13:22 Sodium 134 mmol/L (136-145) L 02/21/22 09:40 Potassium 4.4 mmol/L (3.5-5.1) 02/21/22 09:40 Chloride 101 mmol/L (98-107) 02/21/22 09:40 Carbon Dioxide 25.5 mmol/L (21.0-32.0) 02/21/22 09:40 Anion Gap 7.5 mmol/L (3-11) 02/21/22 09:40 BUN 7 mg/dL (7-18) 02/21/22 09:40 Creatinine 0.7 mg/dL (0.55-1.02) 02/21/22 09:40 Est GFR (CKD-EPI 2020) 122.25 (mL/min/1.73m2) 02/21/22 09:40 Glucose 83 mg/dL (74-106) 02/21/22 09:40 Uric Acid 4.8 mg/dL (2.6-6.0) 02/21/22 09:40 Calcium 9.0 mg/dL (8.5-10.1) 02/21/22 09:40 Total Bilirubin 0.3 mg/dL (0.2-1.0) 02/21/22 09:40 AST 26 U/L (15-37) 02/21/22 09:40 ALT 17 U/L (14-59) 02/21/22 09:40 Alkaline Phosphatase 155 U/L (46-116) H 02/21/22 09:40 Lactate Dehydrogenase 148 U/L (81-234) 02/21/22 09:40 Total Protein 6.6 g/dL (6.4-8.2) 02/21/22 09:40 Albumin 2.5 g/dL (3.4-5.0) L 02/21/22 09:40 Ur Random Creatinine 35.13 mg/dL 02/21/22 10:45 U Random Total Protein < 6.0 mg/dL 02/21/22 10:45 U [place] Prot/Creat Ratio 02/21/22 10:45 COVID-19 Source Nasal/Nares 02/21/22 09:30 SARS-CoV-2 (PCR) Negative (Negative) 02/21/22 09:30 Patient ABO/Rh Cancelled 02/22/22 13:22 Antibody Screen NEGATIVE 02/21/22 09:40 Subjective Interval history since last seen: Patient is interested in starting piocin to encourage contractions with cook catheter in as misoprostol has not been effective to date. Will change plan of care to pitocin. KH Interventions Induction Indication: Gestational Hypertension, Type of Induction: Martinez Bulb and Pitocin rate at(mU/min): 2 will increase by 2 mu every 30 minutes until effective uterine contractions every 2-3 minutes causing cervical changes. KH ., Results Hemoglobin/Hematocrit: Hgb Cancelled 02/22/22 13:22 Hct Cancelled 02/22/22 13:22 Abnormal Lab Findings: Abnormal Labs 02/21/22 02/21/22 09:40 09:40 RDW 14.8 H MPV 12.3 H Sodium 134 L Alkaline Phosphatase 155 H Albumin 2.5 L
[2022-02-22] MEDS: Lactated Ringers 1,000 ML 200 ML IV (15:11)
[2022-02-22] MEDS: Oxytocin/Normal Saline 30 UNIT/500 ML BAG 2 UNITS IV (15:12)
[2022-02-22] MEDS: Normal Saline Flush 10 ML SYR IVP (15:12)
--- NOTE | 2022-02-22 18:45 | PGE_ITS ---
Date of service: 02/22/22 Time of Service: 18:45 Informed Consent Informed Consent: Induction of Labor (cook catheter, pitocin) and Risk,Benefits,Alternatives Discussed Pelvic Exam Comments: VE deferred. Contractions Monitor Mode: External Contraction Frequency(min): 4-8 Contraction Duration(sec): 30-50 Intensity: Mild Fetus A Monitor: Novii Heart Rate Baseline: 145 Variability: Moderate (6-25 BPM) Accelerations: 10 X 10 Decelerations: Variable (not recurrent, with ron of 110) Amniotic Membrane Status: Intact Assessment Note: patient is repositioned and currently no variable decel for over 20 minutes. Assessment and Plan Assessment and plan (1) Gestational hypertension without significant proteinuria in third trimester: Status: Acute Assessment and plan: 1. currently pitocin is at 10 mu and being increased as indicated 2. Cook catheter remains in place 3. Patient tolerating procedure well 4. Reassess in 4 hours or prn. Objective Temp Pulse Resp BP Pulse Ox 98.2 F 90 22 128/80 99 02/22/22 18:27 02/22/22 18:28 02/22/22 18:27 02/22/22 18:28 02/21/22 09:57 Laboratory Results WBC Cancelled 02/22/22 13:22 RBC Cancelled 02/22/22 13:22 Hgb Cancelled 02/22/22 13:22 Hct Cancelled 02/22/22 13:22 MCV Cancelled 02/22/22 13:22 MCH Cancelled 02/22/22 13:22 MCHC Cancelled 02/22/22 13:22 RDW Cancelled 02/22/22 13:22 Plt Count Cancelled 02/22/22 13:22 MPV Cancelled 02/22/22 13:22 Sodium 134 mmol/L (136-145) L 02/21/22 09:40 Potassium 4.4 mmol/L (3.5-5.1) 02/21/22 09:40 Chloride 101 mmol/L (98-107) 02/21/22 09:40 Carbon Dioxide 25.5 mmol/L (21.0-32.0) 02/21/22 09:40 Anion Gap 7.5 mmol/L (3-11) 02/21/22 09:40 BUN 7 mg/dL (7-18) 02/21/22 09:40 Creatinine 0.7 mg/dL (0.55-1.02) 02/21/22 09:40 Est GFR (CKD-EPI 2020) 122.25 (mL/min/1.73m2) 02/21/22 09:40 Glucose 83 mg/dL (74-106) 02/21/22 09:40 Uric Acid 4.8 mg/dL (2.6-6.0) 02/21/22 09:40 Calcium 9.0 mg/dL (8.5-10.1) 02/21/22 09:40 Total Bilirubin 0.3 mg/dL (0.2-1.0) 02/21/22 09:40 AST 26 U/L (15-37) 02/21/22 09:40 ALT 17 U/L (14-59) 02/21/22 09:40 Alkaline Phosphatase 155 U/L (46-116) H 02/21/22 09:40 Lactate Dehydrogenase 148 U/L (81-234) 02/21/22 09:40 Total Protein 6.6 g/dL (6.4-8.2) 02/21/22 09:40 Albumin 2.5 g/dL (3.4-5.0) L 02/21/22 09:40 Ur Random Creatinine 35.13 mg/dL 02/21/22 10:45 U Random Total Protein < 6.0 mg/dL 02/21/22 10:45 U [place] Prot/Creat Ratio 02/21/22 10:45 COVID-19 Source Nasal/Nares 02/21/22 09:30 SARS-CoV-2 (PCR) Negative (Negative) 02/21/22 09:30 Patient ABO/Rh Cancelled 02/22/22 13:22 Antibody Screen NEGATIVE 02/21/22 09:40 Vital Signs Reviewed: Yes Subjective Interval history since last seen: Audra is on floor in a hands and knees position over birthing ball due to lower back discomfort. She denies LOF or bleeding. Cook catheter remains intact. States she is more uncomfortable than she has been throughout this process. Results Hemoglobin/Hematocrit: Hgb Cancelled 02/22/22 13:22 Hct Cancelled 02/22/22 13:22 Abnormal Lab Findings: Abnormal Labs 02/21/22 02/21/22 09:40 09:40 RDW 14.8 H MPV 12.3 H Sodium 134 L Alkaline Phosphatase 155 H Albumin 2.5 L
--- NOTE | 2022-02-22 22:44 | PGE_ITS ---
Date of service: 02/22/22 Time of Service: 22:44 Informed Consent Informed Consent: Induction of Labor (cook catheter, pitocin), Risk,Benefits,Alternatives Discussed and Other (Nitrous use) Pelvic Exam Comments: VE deferred as Cook Catheter remains in place. Contractions Monitor Mode: External Contraction Frequency(min): irregular 1-5 Contraction Duration(sec): 20-60 Intensity: Mild/Moderate Fetus A Monitor: Novii Heart Rate Baseline: 128 Variability: Moderate (6-25 BPM) Categories: Category I Accelerations: 10 X 10 Decelerations: None Assessment and Plan Assessment and plan (1) Gestational hypertension without significant proteinuria in third trimester: Status: Acute Assessment and plan: 1. Nitrous oxide for assistance with pain management. 2. Plan to remove cook catheter between 1 and 2 am and reassess cervix at that time 3. Consult with Dr. Wiseman done to verify that increasing pitocin to 26 mu is acceptable with reassuring tracing. 4. Consider AROM if significant cervical changes occur. Objective Temp Pulse Resp BP Pulse Ox 97.6 F 80 18 134/87 100 02/22/22 20:31 02/22/22 20:31 02/22/22 20:31 02/22/22 20:31 02/22/22 20:31 Laboratory Results WBC Cancelled 02/22/22 13:22 RBC Cancelled 02/22/22 13:22 Hgb Cancelled 02/22/22 13:22 Hct Cancelled 02/22/22 13:22 MCV Cancelled 02/22/22 13:22 MCH Cancelled 02/22/22 13:22 MCHC Cancelled 02/22/22 13:22 RDW Cancelled 02/22/22 13:22 Plt Count Cancelled 02/22/22 13:22 MPV Cancelled 02/22/22 13:22 Sodium 134 mmol/L (136-145) L 02/21/22 09:40 Potassium 4.4 mmol/L (3.5-5.1) 02/21/22 09:40 Chloride 101 mmol/L (98-107) 02/21/22 09:40 Carbon Dioxide 25.5 mmol/L (21.0-32.0) 02/21/22 09:40 Anion Gap 7.5 mmol/L (3-11) 02/21/22 09:40 BUN 7 mg/dL (7-18) 02/21/22 09:40 Creatinine 0.7 mg/dL (0.55-1.02) 02/21/22 09:40 Est GFR (CKD-EPI 2020) 122.25 (mL/min/1.73m2) 02/21/22 09:40 Glucose 83 mg/dL (74-106) 02/21/22 09:40 Uric Acid 4.8 mg/dL (2.6-6.0) 02/21/22 09:40 Calcium 9.0 mg/dL (8.5-10.1) 02/21/22 09:40 Total Bilirubin 0.3 mg/dL (0.2-1.0) 02/21/22 09:40 AST 26 U/L (15-37) 02/21/22 09:40 ALT 17 U/L (14-59) 02/21/22 09:40 Alkaline Phosphatase 155 U/L (46-116) H 02/21/22 09:40 Lactate Dehydrogenase 148 U/L (81-234) 02/21/22 09:40 Total Protein 6.6 g/dL (6.4-8.2) 02/21/22 09:40 Albumin 2.5 g/dL (3.4-5.0) L 02/21/22 09:40 Ur Random Creatinine 35.13 mg/dL 02/21/22 10:45 U Random Total Protein < 6.0 mg/dL 02/21/22 10:45 U [place] Prot/Creat Ratio 02/21/22 10:45 COVID-19 Source Nasal/Nares 02/21/22 09:30 SARS-CoV-2 (PCR) Negative (Negative) 02/21/22 09:30 Patient ABO/Rh Cancelled 02/22/22 13:22 Antibody Screen NEGATIVE 02/21/22 09:40 Vital Signs Reviewed: Yes Subjective Interval history since last seen: reporting increased back pain with contractions. Has been out of bed ambulating and on hands and knees. Now requesting nitrous for additional pain relief. KH Interventions Pain Management Interventions: Comfort Measures , Ambulation, Birthing Ball, Breathing/Relaxation Techniques and Position Change and Nitrous Oxide , patient instructed on proper use and expected outcome of use of nitrous oxide, denies questions. KH . Results Hemoglobin/Hematocrit: Hgb Cancelled 02/22/22 13:22 Hct Cancelled 02/22/22 13:22 Abnormal Lab Findings: Abnormal Labs 02/21/22 02/21/22 09:40 09:40 RDW 14.8 H MPV 12.3 H Sodium 134 L Alkaline Phosphatase 155 H Albumin 2.5 L
[2022-02-22] MEDS: Lactated Ringers 1,000 ML 125 ML IV (22:59)
[2022-02-23] VITALS (163 sets, daily range): BP systolic 115–142; BP diastolic 63–89; PULSE 60–112; RESP 16–20; TEMP 36.6–37.5; O2SAT 97–100; BMI 40.2
--- NOTE | 2022-02-23 01:07 | W.PM.OBNL1 ---
Date of service: 02/23/22 Time of Service: 01:07 Informed Consent Informed Consent: Induction of Labor (cook catheter, pitocin), Risk,Benefits,Alternatives Discussed and Other (Nitrous use) Pelvic Exam Dilation: 4 Effacement (%): 90 station: -2 Cervix Position: mid Consistency: soft Contractions Monitor Mode: External Contraction Frequency(min): 2-4 Contraction Duration(sec): 30-50 Intensity: Mild/Moderate Fetus A Monitor: Novii Heart Rate Baseline: 130 Variability: Moderate (6-25 BPM) Categories: Category I Accelerations: 15 X 15 Decelerations: None Amniotic Membrane Status: Intact Assessment and Plan Assessment and plan (1) Gestational hypertension without significant proteinuria in third trimester: Status: Acute Assessment and plan: 1. Cook catheter removed. Cervix 4/90/-2 2. due to patient fatigue we will allow period of 2-3 hours of rest with pitocin decreased to half its current rate 3. Patient encouraged to sleep 4. after nap will restart increasing pitocin and consider AROM 5. continue to expect NVD. KH Objective Temp Pulse Resp BP Pulse Ox 97.6 F 73 18 134/84 100 02/22/22 20:31 02/23/22 01:02 02/22/22 23:16 02/23/22 01:02 02/23/22 01:00 Laboratory Results WBC Cancelled 02/22/22 13:22 RBC Cancelled 02/22/22 13:22 Hgb Cancelled 02/22/22 13:22 Hct Cancelled 02/22/22 13:22 MCV Cancelled 02/22/22 13:22 MCH Cancelled 02/22/22 13:22 MCHC Cancelled 02/22/22 13:22 RDW Cancelled 02/22/22 13:22 Plt Count Cancelled 02/22/22 13:22 MPV Cancelled 02/22/22 13:22 Sodium 134 mmol/L (136-145) L 02/21/22 09:40 Potassium 4.4 mmol/L (3.5-5.1) 02/21/22 09:40 Chloride 101 mmol/L (98-107) 02/21/22 09:40 Carbon Dioxide 25.5 mmol/L (21.0-32.0) 02/21/22 09:40 Anion Gap 7.5 mmol/L (3-11) 02/21/22 09:40 BUN 7 mg/dL (7-18) 02/21/22 09:40 Creatinine 0.7 mg/dL (0.55-1.02) 02/21/22 09:40 Est GFR (CKD-EPI 2020) 122.25 (mL/min/1.73m2) 02/21/22 09:40 Glucose 83 mg/dL (74-106) 02/21/22 09:40 Uric Acid 4.8 mg/dL (2.6-6.0) 02/21/22 09:40 Calcium 9.0 mg/dL (8.5-10.1) 02/21/22 09:40 Total Bilirubin 0.3 mg/dL (0.2-1.0) 02/21/22 09:40 AST 26 U/L (15-37) 02/21/22 09:40 ALT 17 U/L (14-59) 02/21/22 09:40 Alkaline Phosphatase 155 U/L (46-116) H 02/21/22 09:40 Lactate Dehydrogenase 148 U/L (81-234) 02/21/22 09:40 Total Protein 6.6 g/dL (6.4-8.2) 02/21/22 09:40 Albumin 2.5 g/dL (3.4-5.0) L 02/21/22 09:40 Ur Random Creatinine 35.13 mg/dL 02/21/22 10:45 U Random Total Protein < 6.0 mg/dL 02/21/22 10:45 U [place] Prot/Creat Ratio 02/21/22 10:45 COVID-19 Source Nasal/Nares 02/21/22 09:30 SARS-CoV-2 (PCR) Negative (Negative) 02/21/22 09:30 Patient ABO/Rh Cancelled 02/22/22 13:22 Antibody Screen NEGATIVE 02/21/22 09:40 Vital Signs Reviewed: Yes Subjective Interval history since last seen: has been able to nap some. feels fatigued. tolerates cook catheter coming out well. 4cm 90 -2 at time catheter was drained and removed. patient would appreciate a period of rest. Results Hemoglobin/Hematocrit: Hgb Cancelled 02/22/22 13:22 Hct Cancelled 02/22/22 13:22 Abnormal Lab Findings: Abnormal Labs 02/21/22 02/21/22 09:40 09:40 RDW 14.8 H MPV 12.3 H Sodium 134 L Alkaline Phosphatase 155 H Albumin 2.5 L
--- NOTE | 2022-02-23 03:08 | W.PM.OBNL1 ---
Date of service: 02/23/22 Time of Service: 03:08 Informed Consent Informed Consent: Induction of Labor (cook catheter, pitocin), Risk,Benefits,Alternatives Discussed and Other (Nitrous use) Pelvic Exam Comments: deferred. KH Contractions Monitor Mode: External Contraction Frequency(min): irregular Contraction Duration(sec): irregular Intensity: Mild/Moderate Fetus A Monitor: Novii Heart Rate Baseline: 120 Variability: Moderate (6-25 BPM) Categories: Category I Accelerations: 15 X 15 Decelerations: None Assessment and Plan Assessment and plan (1) Gestational hypertension without significant proteinuria in third trimester: Status: Acute Assessment and plan: 1. Pitocin to begin increasing from 10 mu up to max of 26 mu at this time. 2. Encouraged continued napping until regular and painful contractions, will reassess cervix at that time. 3. Expect NVD. KH Objective Temp Pulse Resp BP Pulse Ox 98 F 73 16 134/84 99 02/23/22 01:02 02/23/22 01:02 02/23/22 01:02 02/23/22 01:02 02/23/22 01:02 Laboratory Results WBC Cancelled 02/22/22 13:22 RBC Cancelled 02/22/22 13:22 Hgb Cancelled 02/22/22 13:22 Hct Cancelled 02/22/22 13:22 MCV Cancelled 02/22/22 13:22 MCH Cancelled 02/22/22 13:22 MCHC Cancelled 02/22/22 13:22 RDW Cancelled 02/22/22 13:22 Plt Count Cancelled 02/22/22 13:22 MPV Cancelled 02/22/22 13:22 Sodium 134 mmol/L (136-145) L 02/21/22 09:40 Potassium 4.4 mmol/L (3.5-5.1) 02/21/22 09:40 Chloride 101 mmol/L (98-107) 02/21/22 09:40 Carbon Dioxide 25.5 mmol/L (21.0-32.0) 02/21/22 09:40 Anion Gap 7.5 mmol/L (3-11) 02/21/22 09:40 BUN 7 mg/dL (7-18) 02/21/22 09:40 Creatinine 0.7 mg/dL (0.55-1.02) 02/21/22 09:40 Est GFR (CKD-EPI 2020) 122.25 (mL/min/1.73m2) 02/21/22 09:40 Glucose 83 mg/dL (74-106) 02/21/22 09:40 Uric Acid 4.8 mg/dL (2.6-6.0) 02/21/22 09:40 Calcium 9.0 mg/dL (8.5-10.1) 02/21/22 09:40 Total Bilirubin 0.3 mg/dL (0.2-1.0) 02/21/22 09:40 AST 26 U/L (15-37) 02/21/22 09:40 ALT 17 U/L (14-59) 02/21/22 09:40 Alkaline Phosphatase 155 U/L (46-116) H 02/21/22 09:40 Lactate Dehydrogenase 148 U/L (81-234) 02/21/22 09:40 Total Protein 6.6 g/dL (6.4-8.2) 02/21/22 09:40 Albumin 2.5 g/dL (3.4-5.0) L 02/21/22 09:40 Ur Random Creatinine 35.13 mg/dL 02/21/22 10:45 U Random Total Protein < 6.0 mg/dL 02/21/22 10:45 U [place] Prot/Creat Ratio 02/21/22 10:45 COVID-19 Source Nasal/Nares 02/21/22 09:30 SARS-CoV-2 (PCR) Negative (Negative) 02/21/22 09:30 Patient ABO/Rh Cancelled 02/22/22 13:22 Antibody Screen NEGATIVE 02/21/22 09:40 Vital Signs Reviewed: Yes Subjective Interval history since last seen: Audra is awake and ready to begin increasing pitocin. Declines amniotomy at this time. She was able to sleep and feels better and states she will continue to nap now while waiting for increased contractions. Reports some bloody show when out of bed to Results Hemoglobin/Hematocrit: Hgb Cancelled 02/22/22 13:22 Hct Cancelled 02/22/22 13:22 Abnormal Lab Findings: Abnormal Labs 02/21/22 02/21/22 09:40 09:40 RDW 14.8 H MPV 12.3 H Sodium 134 L Alkaline Phosphatase 155 H Albumin 2.5 L
--- NOTE | 2022-02-23 06:04 | W.PM.OBNL1 ---
Date of service: 02/23/22 Time of Service: 06:04 Informed Consent Informed Consent: Induction of Labor (cook catheter, pitocin), Risk,Benefits,Alternatives Discussed and Other (Nitrous use) Pelvic Exam Dilation: 4.5 Effacement (%): 90 Cervix Position: posterior Consistency: soft BISHOPS Score(Cervical Ripeness Score): 8 Contractions Monitor Mode: External Contraction Frequency(min): 2-4 Contraction Duration(sec): 40-60 Intensity: Moderate Fetus A Monitor: Novii Heart Rate Baseline: 130 Variability: Moderate (6-25 BPM) Categories: Category I Accelerations: 15 X 15 Decelerations: None Amniotic Membrane Status: Ruptured Rupture Method: Artifical Amniotic Fluid: Clear Amount: moderate Date of Membrane Rupture: 02/23/22 Time of Membrane Rupture: 05:56 Assessment and Plan Assessment and plan (1) Gestational hypertension without significant proteinuria in third trimester: Status: Acute Assessment and plan: 1. AROM per patient request, moderate amount of clear fluid with old bloody discharge 2. Pticoin at 22 mu, reviewed that at times after AROM we have to decrease this amount 3. Zofran IV for nausea, nitrous as needed for pain. Patient is considering epidural as well but not at this time. 4. Continue to expect NVD. Objective Temp Pulse Resp BP Pulse Ox 98 F 83 18 127/84 99 02/23/22 01:02 02/23/22 05:04 02/23/22 05:04 02/23/22 05:04 02/23/22 01:02 Laboratory Results WBC Cancelled 02/22/22 13:22 RBC Cancelled 02/22/22 13:22 Hgb Cancelled 02/22/22 13:22 Hct Cancelled 02/22/22 13:22 MCV Cancelled 02/22/22 13:22 MCH Cancelled 02/22/22 13:22 MCHC Cancelled 02/22/22 13:22 RDW Cancelled 02/22/22 13:22 Plt Count Cancelled 02/22/22 13:22 MPV Cancelled 02/22/22 13:22 Sodium 134 mmol/L (136-145) L 02/21/22 09:40 Potassium 4.4 mmol/L (3.5-5.1) 02/21/22 09:40 Chloride 101 mmol/L (98-107) 02/21/22 09:40 Carbon Dioxide 25.5 mmol/L (21.0-32.0) 02/21/22 09:40 Anion Gap 7.5 mmol/L (3-11) 02/21/22 09:40 BUN 7 mg/dL (7-18) 02/21/22 09:40 Creatinine 0.7 mg/dL (0.55-1.02) 02/21/22 09:40 Est GFR (CKD-EPI 2020) 122.25 (mL/min/1.73m2) 02/21/22 09:40 Glucose 83 mg/dL (74-106) 02/21/22 09:40 Uric Acid 4.8 mg/dL (2.6-6.0) 02/21/22 09:40 Calcium 9.0 mg/dL (8.5-10.1) 02/21/22 09:40 Total Bilirubin 0.3 mg/dL (0.2-1.0) 02/21/22 09:40 AST 26 U/L (15-37) 02/21/22 09:40 ALT 17 U/L (14-59) 02/21/22 09:40 Alkaline Phosphatase 155 U/L (46-116) H 02/21/22 09:40 Lactate Dehydrogenase 148 U/L (81-234) 02/21/22 09:40 Total Protein 6.6 g/dL (6.4-8.2) 02/21/22 09:40 Albumin 2.5 g/dL (3.4-5.0) L 02/21/22 09:40 Ur Random Creatinine 35.13 mg/dL 02/21/22 10:45 U Random Total Protein < 6.0 mg/dL 02/21/22 10:45 U [place] Prot/Creat Ratio 02/21/22 10:45 COVID-19 Source Nasal/Nares 02/21/22 09:30 SARS-CoV-2 (PCR) Negative (Negative) 02/21/22 09:30 Patient ABO/Rh Cancelled 02/22/22 13:22 Antibody Screen NEGATIVE 02/21/22 09:40 Vital Signs Reviewed: Yes Subjective Interval history since last seen: Audra has become more uncomfortable with contractions in past hour. She requested AROM to see if it can increase labor. Having some nausea. Working well with contractions and has great support. KH Interventions Augmentation (AROM at 0556) , Pitocin rate (mU/min): 22 Results Hemoglobin/Hematocrit: Hgb Cancelled 02/22/22 13:22 Hct Cancelled 02/22/22 13:22 Abnormal Lab Findings: Abnormal Labs 02/21/22 02/21/22 09:40 09:40 RDW 14.8 H MPV 12.3 H Sodium 134 L Alkaline Phosphatase 155 H Albumin 2.5 L
[2022-02-23] MEDS: Ondansetron 4 MG/2 ML VIAL IVP (06:15)
[2022-02-23] MEDS: Lactated Ringers 1,000 ML 125 ML IV ×3 (06:23→16:39)
--- NOTE | 2022-02-23 06:45 | PGE_ITS ---
Date of service: 02/23/22 Time of Service: 06:46 Informed Consent Informed Consent: Induction of Labor (cook catheter, pitocin), Risk,Benefits,Alternatives Discussed and Other (Nitrous use) Contractions Contraction Frequency(min): 2-3 Contraction Duration(sec): 40-60 Intensity: Moderate Fetus A Monitor: External (US) Heart Rate Baseline: 120 Variability: Moderate (6-25 BPM) Categories: Category I Objective Temp Pulse Resp BP Pulse Ox 98 F 83 18 127/84 99 02/23/22 01:02 02/23/22 05:04 02/23/22 05:04 02/23/22 05:04 02/23/22 01:02 Laboratory Results WBC Cancelled 02/22/22 13:22 RBC Cancelled 02/22/22 13:22 Hgb Cancelled 02/22/22 13:22 Hct Cancelled 02/22/22 13:22 MCV Cancelled 02/22/22 13:22 MCH Cancelled 02/22/22 13:22 MCHC Cancelled 02/22/22 13:22 RDW Cancelled 02/22/22 13:22 Plt Count Cancelled 02/22/22 13:22 MPV Cancelled 02/22/22 13:22 Sodium 134 mmol/L (136-145) L 02/21/22 09:40 Potassium 4.4 mmol/L (3.5-5.1) 02/21/22 09:40 Chloride 101 mmol/L (98-107) 02/21/22 09:40 Carbon Dioxide 25.5 mmol/L (21.0-32.0) 02/21/22 09:40 Anion Gap 7.5 mmol/L (3-11) 02/21/22 09:40 BUN 7 mg/dL (7-18) 02/21/22 09:40 Creatinine 0.7 mg/dL (0.55-1.02) 02/21/22 09:40 Est GFR (CKD-EPI 2020) 122.25 (mL/min/1.73m2) 02/21/22 09:40 Glucose 83 mg/dL (74-106) 02/21/22 09:40 Uric Acid 4.8 mg/dL (2.6-6.0) 02/21/22 09:40 Calcium 9.0 mg/dL (8.5-10.1) 02/21/22 09:40 Total Bilirubin 0.3 mg/dL (0.2-1.0) 02/21/22 09:40 AST 26 U/L (15-37) 02/21/22 09:40 ALT 17 U/L (14-59) 02/21/22 09:40 Alkaline Phosphatase 155 U/L (46-116) H 02/21/22 09:40 Lactate Dehydrogenase 148 U/L (81-234) 02/21/22 09:40 Total Protein 6.6 g/dL (6.4-8.2) 02/21/22 09:40 Albumin 2.5 g/dL (3.4-5.0) L 02/21/22 09:40 Ur Random Creatinine 35.13 mg/dL 02/21/22 10:45 U Random Total Protein < 6.0 mg/dL 02/21/22 10:45 U [place] Prot/Creat Ratio 02/21/22 10:45 COVID-19 Source Nasal/Nares 02/21/22 09:30 SARS-CoV-2 (PCR) Negative (Negative) 02/21/22 09:30 Patient ABO/Rh Cancelled 02/22/22 13:22 Antibody Screen NEGATIVE 02/21/22 09:40 Subjective Interval history since last seen: Audra is requesting epidural for pain management. Senior Litigation Paralegal notified and will call DEVELOPMENTAL EDUCATION INSTRUCTOR.KH Interventions Pain Management Interventions: Epidural (DEVELOPMENTAL EDUCATION INSTRUCTOR called to attend for epidural). Results Hemoglobin/Hematocrit: Hgb Cancelled 02/22/22 13:22 Hct Cancelled 02/22/22 13:22 Abnormal Lab Findings: Abnormal Labs 02/21/22 02/21/22 09:40 09:40 RDW 14.8 H MPV 12.3 H Sodium 134 L Alkaline Phosphatase 155 H Albumin 2.5 L
--- NOTE | 2022-02-23 06:59 | W.ANESPRE ---
General Info Date of Service Date Performed: 02/23/22 Height: 5 ft 2 in Weight: 99.79 kg Body Mass Index (BMI): 40.2 Meds Allergies and Home Medications Allergies Allergy/AdvReac Type Severity Reaction Status Date / Time Cephalosporins AdvReac Intermediate Skin Rash Verified 02/21/22 11:20 Penicillins AdvReac Intermediate Skin Rash Verified 02/21/22 11:19 Tide Laundry Soap AdvReac Unknown Uncoded 02/21/22 10:02 Home Medication Medication Instructions Recorded albuterol sulfate 90 mcg/actuation 2 inh inhalation Q6H PRN 06/02/20 breath activated powder inhaler prenat.vits,maciej,ynu-vwoz-hjeli 1 tab PO DAILY 06/23/21 aspirin 81 mg tablet,delayed 81 mg PO DAILY #90 tabs 08/13/21 release Current Visit Medications: Current Medications Generic Name Dose Route Start Last Admin Trade Name Freq PRN Reason Stop Dose Admin Acetaminophen 650 mg 02/22/22 19:44 02/22/22 19:51 Acetaminophen 325 Mg Tab PO 650 mg Q6H PRN PRN Administration Albuterol Sulfate 2 puff 02/21/22 23:19 Albuterol Hfa 8.5 Gm 200 Puff Inh IH Q6H PRN Bupivacaine HCl 0 ml 02/23/22 06:56 Bupivacaine 0.25% Pres-Free 10 Ml Vial EP 02/23/22 06:57 NOW ONE Fentanyl 0 mcg 02/23/22 06:56 Fentanyl 100 Mcg/2 Ml Vial EP 02/23/22 06:57 NOW ONE Fentanyl/Ropivacaine 200 ml 02/23/22 07:00 Fentanyl/Ropivacaine 2 Mcg/Ml And 0.1% 200 Ml Cadd Cassette EP DIRECTED SUNNY Ringer's Solution 1,000 mls @ 125 mls/hr 02/21/22 09:30 02/23/22 06:23 IV 125 mls/hr INFUSION SUNNY Administration Sodium Chloride 500 mls @ 0 mls/hr 02/21/22 09:18 Saline 500ml Bag IV PRN PRN As Directed Ringer's Solution 1,000 mls @ 125 mls/hr 02/22/22 14:30 IV INFUSION SUNNY Oxytocin/Sodium Chloride 30 unit in 500 mls @ 2 mls/hr 02/22/22 14:30 02/23/22 05:45 Pitocin/Normal Saline IV 22 milliunits/min INFUSION SUNNY 22 mls/hr Titration Protocol 2 MILLIUNITS/MIN Ringer's Solution 500 mls @ 500 mls/hr 02/23/22 06:56 IV 02/23/22 07:55 BOLUS ONE IV Miscellaneous Supplies 1 each 02/21/22 09:30 02/21/22 11:39 Iv Access IV 1 each DIRECTED SUNNY Administration Ondansetron HCl 4 mg 02/23/22 06:03 02/23/22 06:15 Ondansetron 4 Mg/2 Ml Vial IVP 4 mg Q4H PRN PRN Administration Sodium Chloride 0 ml 02/21/22 09:18 02/22/22 15:12 Normal Saline Flush 10 Ml Syr IVP 10 ml PRN PRN Administration Terbutaline Sulfate 0.25 mg 02/21/22 09:18 Terbutaline 1 Mg/Ml Vial SC PRN PRN PFSH Active Problems Active Problems: Problem Status Onset Code Gestational hypertension without significant proteinuria in third trimester O13.3 Low back pain M54.50 Z34.90 Seasonal affective disorder F33.8 COVID-19 virus infection U07.1 Rubella non-immune status, antepartum O99.891, Z28.3 Cephalosporin adverse reaction T36.1X5A History of penicillin-type antibiotic allergy Z88.0 BMI 35.0-35.9,adult Z68.35 Z34.90 Asthma J45.909 Medical History Medical History Encounter for IUD insertion Family history of MRSA infection has had MRSA infections twice Alcohol Alcohol Intake: never Substance Use Substance use: Never Substance use type: does not use Prental History History 1 Para 0 Hx # Term Pregnancies 0 Multiple births 0 Hx # Pregnancies 0 Ectopic pregnancies 0 AB induced 0 Hx Number of Living Children 0 AB spontaneous 0 Vital Signs and Lab Results Vital Signs Most Recent Vital Signs in EMR: Most Recent Vital Signs Temp Pulse Resp BP Pulse Ox 36.6 C 83 18 127/84 99 02/23/22 01:02 02/23/22 05:04 02/23/22 05:04 02/23/22 05:04 02/23/22 01:02 Lab Results Result Diagrams: 02/21/22 09:40 02/21/22 09:40 Blood Type / Crossmatch: Patient ABO/Rh A Positive 02/21/22 Antibody Screen NEGATIVE 02/21/22 Complete Blood Count: White Blood Count 8.75 10^3/uL (4.4-10.8) 02/21/22 09:40 Red Blood Count 4.51 10^6/uL (3.93-5.22) 02/21/22 09:40 Hemoglobin 13.1 g/dL (11.2-15.7) 02/21/22 09:40 Hematocrit 40.1 % (36.0-46.0) 02/21/22 09:40 Platelet Count 206 10^3/uL (130-400) 02/21/22 09:40 Complete Metabolic Panel: Sodium Level 134 mmol/L (136-145) L 02/21/22 09:40 Potassium Level 4.4 mmol/L (3.5-5.1) 02/21/22 09:40 Chloride Level 101 mmol/L (98-107) 02/21/22 09:40 Carbon Dioxide Level 25.5 mmol/L (21.0-32.0) 02/21/22 09:40 Blood Urea Nitrogen 7 mg/dL (7-18) 02/21/22 09:40 Creatinine 0.7 mg/dL (0.55-1.02) 02/21/22 09:40 Calcium Level 9.0 mg/dL (8.5-10.1) 02/21/22 09:40 Albumin 2.5 g/dL (3.4-5.0) L 02/21/22 09:40 Glucose Level 83 mg/dL (74-106) 02/21/22 09:40 Liver Function Panel: Alanine Aminotransferase (ALT/SGPT) 17 U/L (14-59) 02/21/22 09:40 Aspartate Amino Transf (AST/SGOT) 26 U/L (15-37) 02/21/22 09:40 Coagulation Panel: No Data to Display Cardiac Panel: No Data to Display Arterial Blood Gas: No Data to Display Venous Blood Gas: No Data to Display Pancreas Panel: No Data to Display Thyroid Panel: No Data to Display Infectious Disease: Coronavirus (COVID-19)(PCR) Negative (Negative) 02/21/22 09:30 Coronavirus 2019 Source Nasal/Nares 02/21/22 09:30 Blood Cultures: No Data to Display Toxicology Panel: Urine Amphetamines Screen Negative (Negative) 01/31/22 15:25 Urine Benzodiazepines Screen Negative (Negative) 01/31/22 15:25 Urine Barbiturates Screen Negative (Negative) 01/31/22 15:25 Urine Cocaine Screen Negative (Negative) 01/31/22 15:25 Urine Methadone Screen Negative (Negative) 01/31/22 15:25 Urine Opiates Screen Negative (Negative) 01/31/22 15:25 Ur Tricyclic Antidepressants Screen Negative (Negative) 01/31/22 15:25 Ur Tetrahydrocannabinol (THC) Scrn Negative (Negative) 01/31/22 15:25 Panel: No Data to Display Anesthesia Assessment and Plan Anesthesia History Personal History: No History of Anesthesia Complications Family History: No Family History of Anesthesia Complications Exercise Tolerance Exercise Tolerance: Metabolic Equivalents>4 Pertinent Negatives Pertinent Negatives: No Symptoms of GERD, No Major Cardiovascular Symptoms or Complaints, No History of CVA/TIA and Other (Exercise induced asthma) Cardiac & Pulmonary Exam Cardiac Exam: Normal S1/S2 Heart Sounds Pulmonary Exam: Clear Bilateral Breath Sounds Implantable Cardiac Device Does patient have a Pacemaker or an ICD?: No Airway Exam Known Difficult Airway: No Mallampati Class: 2 Mouth Opening: Normal (> 3cm) Thyromental Distance: Greater than 3 cm Neck Range of Motion: Full ROM Neck Circumference: Normal Teeth Condition: Normal Dentition ASA Classification ASA Score: ASA 2 Emergency Case?: No NPO Status NPO Status: NPO Clears >2 hours, Solids >8 hours Status Status: Confirmed Anesthesia Plan Resuscitation Status: Full Code Anesthesia Technique: Epidural Anesthesia Airway Planned: Natural Airway Pain Management: Epidural Monitors Used: Standard Monitors
[2022-02-23] MEDS: Bupivacaine 0.25% Pres-Free 10 ML VIAL EP (07:30)
[2022-02-23] MEDS: fentaNYL 100 MCG/2 ML VIAL EP (07:35)
[2022-02-23] MEDS: FentaNYL/ROPIvacaine 2 mcg/ml and 0.1% 200 ML CADD Cassette EP ×2 (07:42→21:40)
--- NOTE | 2022-02-23 07:57 | W.ANESNEU ---
Epidural/Spinal Catheter Date Performed: 02/23/22 Procedure Start: 07:06 Procedure Stop: 07:49 Requesting Provider: Mary Reyna Procedure Location: Obstetrics Reason Performed: Labor Epidural Standard Monitors Applied: Blood Pressure, SpO2 and See EMR for corresponding vital signs Patient Position: Sitting Sedation Given (Indicate Dose Given): No Sedation given Patient Mental Status: Awake Sterility: Hand Hygiene, Surgical Cap, Surgical Mask, Sterile Gloves, Sterile Drape/Sheet and Chlorhexidine Procedure Location: L2-L3 Interspace Epidural Needle: Tuohy 17 Guage Needle Length: 3.5 Inch Needle Approach: Midline Epidural Procedure: Skin Prepped, Sterile Drape Placed, 1% Lidocaine to skin and subcutaneous tissue with 25G needle, Tuohy Needle placed, RAAD to Saline Used, Epidural Catheter Placed, Negative Heme, Negative CSF Flow and Tuohy Needle Removed Catheter Placed?: Catheter Placed Test Dose (Indicate Dose Given): 3ml 1.5% Lidocaine with 1:200K Epinephrine Given and Negative Test Dose Loss of Resistance Depth (cm): 8 Catheter depth at skin (cm): 14 Dressing: Tegaderm Applied, Mastisol Used and Dressing reinforced with Tape Epidural Provider Bolus (Indicate Dose Given): Total bolus dose given in 3-5 ml divided doses and Total Bupivacaine 0.25% Given (ml) Dose:: 6 ml Additives (Indicate Dose Given ): Fentanyl PF Dose:: 100 mcg Infusion Medication: Medication Infusion Began Medication Infusion: Ropivacaine 0.1% with Fentanyl 2mcg/ml Maintenance Infusion Rate (ml/hour): 10 PCEA Bolus Dose (ml): 5 Post Procedure Pain score (0-10): 4 Block Level: N/A Paresthesia: Left Paresthesia Duration: Transient Ultrasound: Not Used Number of Attempts (See previous attempts in note section): 2 Procedure Tolerated: No Complications and Patient tolerated well Procedure Outcome: Successful Performed By: Edie Mcclure Other (not listed above): First attempt by Eugene KNAPP
--- NOTE | 2022-02-23 12:38 | PGE_ITS ---
Date of service: 02/23/22 Time of Service: 12:00 Informed Consent Informed Consent: Induction of Labor (cook catheter, pitocin), Risk,Benefits,Alternatives Discussed and Other (Nitrous use) Pelvic Exam Dilation: 5 Effacement (%): 90 station: -1 Position: TRAV Cervix Position: mid Consistency: soft Comments: Audra has been resting well. She has no discomfort. Pitocin at 24 mu/min. Contractions Monitor Mode: External Contraction Frequency(min): every 2-3 Contraction Duration(sec): 50 Intensity: Moderate/Strong Fetus A Monitor: External (US) Heart Rate Baseline: 115 Presentation: Vertex Variability: Moderate (6-25 BPM) Categories: Category I FHR Rhythm: Regular Characteristics: Normal Accelerations: 15 X 15 Decelerations: None Assessment Note: There was an episode of baseline change with baseline down to 100 lasting 5 minutes. Audra was repositioned by RN. FHR returned to baseline of 120 after episode Assessment and Plan Assessment and plan (1) Encounter for induction of labor: Status: Acute Assessment and plan: Positioned on left side with peanut ball. Will continue to assess labor pattern. Will increase pitocin as needed to maintain adequate contraction pattern. Consider IUPC placement if indicated to assess adequacy of contractions. Objective Temp Pulse Resp BP Pulse Ox 98.4 F 99 H 16 122/76 100 02/23/22 12:05 02/23/22 12:37 02/23/22 08:03 02/23/22 12:31 02/23/22 08:03 Laboratory Results WBC Cancelled 02/22/22 13:22 RBC Cancelled 02/22/22 13:22 Hgb Cancelled 02/22/22 13:22 Hct Cancelled 02/22/22 13:22 MCV Cancelled 02/22/22 13:22 MCH Cancelled 02/22/22 13:22 MCHC Cancelled 02/22/22 13:22 RDW Cancelled 02/22/22 13:22 Plt Count Cancelled 02/22/22 13:22 MPV Cancelled 02/22/22 13:22 Sodium 134 mmol/L (136-145) L 02/21/22 09:40 Potassium 4.4 mmol/L (3.5-5.1) 02/21/22 09:40 Chloride 101 mmol/L (98-107) 02/21/22 09:40 Carbon Dioxide 25.5 mmol/L (21.0-32.0) 02/21/22 09:40 Anion Gap 7.5 mmol/L (3-11) 02/21/22 09:40 BUN 7 mg/dL (7-18) 02/21/22 09:40 Creatinine 0.7 mg/dL (0.55-1.02) 02/21/22 09:40 Est GFR (CKD-EPI 2020) 122.25 (mL/min/1.73m2) 02/21/22 09:40 Glucose 83 mg/dL (74-106) 02/21/22 09:40 Uric Acid 4.8 mg/dL (2.6-6.0) 02/21/22 09:40 Calcium 9.0 mg/dL (8.5-10.1) 02/21/22 09:40 Total Bilirubin 0.3 mg/dL (0.2-1.0) 02/21/22 09:40 AST 26 U/L (15-37) 02/21/22 09:40 ALT 17 U/L (14-59) 02/21/22 09:40 Alkaline Phosphatase 155 U/L (46-116) H 02/21/22 09:40 Lactate Dehydrogenase 148 U/L (81-234) 02/21/22 09:40 Total Protein 6.6 g/dL (6.4-8.2) 02/21/22 09:40 Albumin 2.5 g/dL (3.4-5.0) L 02/21/22 09:40 Ur Random Creatinine 35.13 mg/dL 02/21/22 10:45 U Random Total Protein < 6.0 mg/dL 02/21/22 10:45 U [place] Prot/Creat Ratio 02/21/22 10:45 COVID-19 Source Nasal/Nares 02/21/22 09:30 SARS-CoV-2 (PCR) Negative (Negative) 02/21/22 09:30 Patient ABO/Rh Cancelled 02/22/22 13:22 Antibody Screen NEGATIVE 02/21/22 09:40 Results Hemoglobin/Hematocrit: Hgb Cancelled 02/22/22 13:22 Hct Cancelled 02/22/22 13:22 Abnormal Lab Findings: Abnormal Labs 02/21/22 02/21/22 09:40 09:40 RDW 14.8 H MPV 12.3 H Sodium 134 L Alkaline Phosphatase 155 H Albumin 2.5 L
--- NOTE | 2022-02-23 13:46 | PGE_ITS ---
Date of service: 02/23/22 Time of Service: 13:46 Informed Consent Informed Consent: Induction of Labor (cook catheter, pitocin), Risk,Benefits,Alternatives Discussed and Other (Nitrous use) Pelvic Exam Dilation: 7 Effacement (%): 100 station: 0 Position: TRAV Cervix Position: mid Consistency: soft Pooling: Positive Contractions Monitor Mode: Internal Contraction Frequency(min): every 2 minutes Contraction Duration(sec): 60 IUPC resting tone (mmHg): 30 IUPC peak pressure (mmHg): 50 IUPC [place] units: 80 Fetus A Monitor: External (US) Heart Rate Baseline: 125 Presentation: Vertex Variability: Moderate (6-25 BPM) Categories: Category I FHR Rhythm: Regular Accelerations: 15 X 15 Decelerations: None and Early Amniotic Membrane Status: Ruptured Amniotic Fluid: Meconium (mod) Assessment and Plan Assessment and plan (1) Encounter for induction of labor: Status: Acute Assessment and plan: anticipate , continue to assess FHR pattern and [place] units. Objective Temp Pulse Resp BP Pulse Ox 98.4 F 101 H 16 125/81 100 02/23/22 12:05 02/23/22 13:37 02/23/22 08:03 02/23/22 13:32 02/23/22 08:03 Laboratory Results WBC Cancelled 02/22/22 13:22 RBC Cancelled 02/22/22 13:22 Hgb Cancelled 02/22/22 13:22 Hct Cancelled 02/22/22 13:22 MCV Cancelled 02/22/22 13:22 MCH Cancelled 02/22/22 13:22 MCHC Cancelled 02/22/22 13:22 RDW Cancelled 02/22/22 13:22 Plt Count Cancelled 02/22/22 13:22 MPV Cancelled 02/22/22 13:22 Sodium 134 mmol/L (136-145) L 02/21/22 09:40 Potassium 4.4 mmol/L (3.5-5.1) 02/21/22 09:40 Chloride 101 mmol/L (98-107) 02/21/22 09:40 Carbon Dioxide 25.5 mmol/L (21.0-32.0) 02/21/22 09:40 Anion Gap 7.5 mmol/L (3-11) 02/21/22 09:40 BUN 7 mg/dL (7-18) 02/21/22 09:40 Creatinine 0.7 mg/dL (0.55-1.02) 02/21/22 09:40 Est GFR (CKD-EPI 2020) 122.25 (mL/min/1.73m2) 02/21/22 09:40 Glucose 83 mg/dL (74-106) 02/21/22 09:40 Uric Acid 4.8 mg/dL (2.6-6.0) 02/21/22 09:40 Calcium 9.0 mg/dL (8.5-10.1) 02/21/22 09:40 Total Bilirubin 0.3 mg/dL (0.2-1.0) 02/21/22 09:40 AST 26 U/L (15-37) 02/21/22 09:40 ALT 17 U/L (14-59) 02/21/22 09:40 Alkaline Phosphatase 155 U/L (46-116) H 02/21/22 09:40 Lactate Dehydrogenase 148 U/L (81-234) 02/21/22 09:40 Total Protein 6.6 g/dL (6.4-8.2) 02/21/22 09:40 Albumin 2.5 g/dL (3.4-5.0) L 02/21/22 09:40 Ur Random Creatinine 35.13 mg/dL 02/21/22 10:45 U Random Total Protein < 6.0 mg/dL 02/21/22 10:45 U [place] Prot/Creat Ratio 02/21/22 10:45 COVID-19 Source Nasal/Nares 02/21/22 09:30 SARS-CoV-2 (PCR) Negative (Negative) 02/21/22 09:30 Patient ABO/Rh Cancelled 02/22/22 13:22 Antibody Screen NEGATIVE 02/21/22 09:40 Subjective Interval history since last seen: Audra is beginning to report low back pain and has been pushing her PLASTIC SURGERY MANAGER button. BP 125/81. IUPC placed to better assess labor pattern. Results Hemoglobin/Hematocrit: Hgb Cancelled 02/22/22 13:22 Hct Cancelled 02/22/22 13:22 Abnormal Lab Findings: Abnormal Labs 02/21/22 02/21/22 09:40 09:40 RDW 14.8 H MPV 12.3 H Sodium 134 L Alkaline Phosphatase 155 H Albumin 2.5 L
--- NOTE | 2022-02-23 15:57 | PGE_ITS ---
Date of service: 02/23/22 Time of Service: 15:58 Informed Consent Informed Consent: Induction of Labor (cook catheter, pitocin), Risk,Benefits,Alternatives Discussed and Other (Nitrous use) Pelvic Exam Dilation: 8 Effacement (%): 100 station: 0 Position: TRAV Cervix Position: anterior Consistency: soft Vaginal Exam Presentation: Vertex Pooling: Positive Comments: The IUPC was removed due to inability to determine the uterine resting tone. By paplaption, the uterus relaxes between contractions but the IUPC baseline was 50. After removal of IUPC, an external contraction monitor was placed which revealed every two to three minute contractions lasting 60 seconds. Contractions Monitor Mode: External Contraction Frequency(min): every 2 minutes Contraction Duration(sec): 60 Intensity: Strong Fetus A Monitor: External (US) Heart Rate Baseline: 140 Presentation: Vertex Variability: Moderate (6-25 BPM) Categories: Category II FHR Rhythm: Regular Accelerations: 15 X 15 Decelerations: Variable Recurrence: Episodic Amniotic Membrane Status: Ruptured Amniotic Fluid: Meconium Assessment Note: continues to leak moderate meconium stained fluid. Assessment and Plan Assessment and plan (1) Encounter for induction of labor: Status: Acute Assessment and plan: Dr. Alegria was notified of patient's status. I will consider replacement of IUPC if indicated. Staight catheterization at this time with urine dip. Objective Temp Pulse Resp BP Pulse Ox 99.5 F 97 H 16 121/77 97 02/23/22 15:02 02/23/22 15:54 02/23/22 08:03 02/23/22 15:33 02/23/22 15:50 Laboratory Results WBC Cancelled 02/22/22 13:22 RBC Cancelled 02/22/22 13:22 Hgb Cancelled 02/22/22 13:22 Hct Cancelled 02/22/22 13:22 MCV Cancelled 02/22/22 13:22 MCH Cancelled 02/22/22 13:22 MCHC Cancelled 02/22/22 13:22 RDW Cancelled 02/22/22 13:22 Plt Count Cancelled 02/22/22 13:22 MPV Cancelled 02/22/22 13:22 Sodium 134 mmol/L (136-145) L 02/21/22 09:40 Potassium 4.4 mmol/L (3.5-5.1) 02/21/22 09:40 Chloride 101 mmol/L (98-107) 02/21/22 09:40 Carbon Dioxide 25.5 mmol/L (21.0-32.0) 02/21/22 09:40 Anion Gap 7.5 mmol/L (3-11) 02/21/22 09:40 BUN 7 mg/dL (7-18) 02/21/22 09:40 Creatinine 0.7 mg/dL (0.55-1.02) 02/21/22 09:40 Est GFR (CKD-EPI 2020) 122.25 (mL/min/1.73m2) 02/21/22 09:40 Glucose 83 mg/dL (74-106) 02/21/22 09:40 Uric Acid 4.8 mg/dL (2.6-6.0) 02/21/22 09:40 Calcium 9.0 mg/dL (8.5-10.1) 02/21/22 09:40 Total Bilirubin 0.3 mg/dL (0.2-1.0) 02/21/22 09:40 AST 26 U/L (15-37) 02/21/22 09:40 ALT 17 U/L (14-59) 02/21/22 09:40 Alkaline Phosphatase 155 U/L (46-116) H 02/21/22 09:40 Lactate Dehydrogenase 148 U/L (81-234) 02/21/22 09:40 Total Protein 6.6 g/dL (6.4-8.2) 02/21/22 09:40 Albumin 2.5 g/dL (3.4-5.0) L 02/21/22 09:40 Ur Random Creatinine 35.13 mg/dL 02/21/22 10:45 U Random Total Protein < 6.0 mg/dL 02/21/22 10:45 U [place] Prot/Creat Ratio 02/21/22 10:45 COVID-19 Source Nasal/Nares 02/21/22 09:30 SARS-CoV-2 (PCR) Negative (Negative) 02/21/22 09:30 Patient ABO/Rh Cancelled 02/22/22 13:22 Antibody Screen NEGATIVE 02/21/22 09:40 Subjective Interval history since last seen: Audra remains comfortable. She has been moving into various positions for comfort. Martinez catheter removed due to gross blood tinged urine noted prior to IUPC insertion. Audra had reported urinary incontinence earlier and a history of urinary tract infections. Urine culture was sent. Results Hemoglobin/Hematocrit: Hgb Cancelled 02/22/22 13:22 Hct Cancelled 02/22/22 13:22 Abnormal Lab Findings: Abnormal Labs 02/21/22 02/21/22 09:40 09:40 RDW 14.8 H MPV 12.3 H Sodium 134 L Alkaline Phosphatase 155 H Albumin 2.5 L
[2022-02-23] MEDS: Oxytocin/Normal Saline 30 UNIT/500 ML BAG 28 UNITS IV (18:12)
--- NOTE | 2022-02-23 19:24 | PGE_ITS ---
Date of service: 02/23/22 Time of Service: 19:24 Informed Consent Informed Consent: Induction of Labor (cook catheter, pitocin), Risk,Benefits,Alternatives Discussed and Other (Nitrous use) Pelvic Exam Dilation: 9 Effacement (%): 100 station: 0 Cervix Position: mid Consistency: soft Comments: meconium stained fluid Contractions Monitor Mode: Internal Contraction Frequency(min): evrey 3 minutes Contraction Duration(sec): 60 Intensity: Moderate IUPC resting tone (mmHg): 20 IUPC peak pressure (mmHg): 40 IUPC [place] units: 100 Fetus A Monitor: External (US) Heart Rate Baseline: 130 Variability: Moderate (6-25 BPM) Categories: Category I FHR Rhythm: Regular Accelerations: 15 X 15 Decelerations: None Amniotic Membrane Status: Ruptured Amniotic Fluid: Meconium Assessment and Plan Assessment and plan (1) Encounter for induction of labor: Status: Acute Assessment and plan: Dr. Alegria was present on the unit at 1830 and viewed the heart rate tracing. Progress in labor was discussed. Side lying release posture performed. Will perform a pelvic exam at 1999 and consult if indicated. Objective Temp Pulse Resp BP Pulse Ox 99.3 F 100 H 16 130/79 97 02/23/22 19:09 02/23/22 18:31 02/23/22 08:03 02/23/22 18:31 02/23/22 15:50 Laboratory Results WBC Cancelled 02/22/22 13:22 RBC Cancelled 02/22/22 13:22 Hgb Cancelled 02/22/22 13:22 Hct Cancelled 02/22/22 13:22 MCV Cancelled 02/22/22 13:22 MCH Cancelled 02/22/22 13:22 MCHC Cancelled 02/22/22 13:22 RDW Cancelled 02/22/22 13:22 Plt Count Cancelled 02/22/22 13:22 MPV Cancelled 02/22/22 13:22 Sodium 134 mmol/L (136-145) L 02/21/22 09:40 Potassium 4.4 mmol/L (3.5-5.1) 02/21/22 09:40 Chloride 101 mmol/L (98-107) 02/21/22 09:40 Carbon Dioxide 25.5 mmol/L (21.0-32.0) 02/21/22 09:40 Anion Gap 7.5 mmol/L (3-11) 02/21/22 09:40 BUN 7 mg/dL (7-18) 02/21/22 09:40 Creatinine 0.7 mg/dL (0.55-1.02) 02/21/22 09:40 Est GFR (CKD-EPI 2020) 122.25 (mL/min/1.73m2) 02/21/22 09:40 Glucose 83 mg/dL (74-106) 02/21/22 09:40 Uric Acid 4.8 mg/dL (2.6-6.0) 02/21/22 09:40 Calcium 9.0 mg/dL (8.5-10.1) 02/21/22 09:40 Total Bilirubin 0.3 mg/dL (0.2-1.0) 02/21/22 09:40 AST 26 U/L (15-37) 02/21/22 09:40 ALT 17 U/L (14-59) 02/21/22 09:40 Alkaline Phosphatase 155 U/L (46-116) H 02/21/22 09:40 Lactate Dehydrogenase 148 U/L (81-234) 02/21/22 09:40 Total Protein 6.6 g/dL (6.4-8.2) 02/21/22 09:40 Albumin 2.5 g/dL (3.4-5.0) L 02/21/22 09:40 Ur Random Creatinine 35.13 mg/dL 02/21/22 10:45 U Random Total Protein < 6.0 mg/dL 02/21/22 10:45 U [place] Prot/Creat Ratio 02/21/22 10:45 COVID-19 Source Nasal/Nares 02/21/22 09:30 SARS-CoV-2 (PCR) Negative (Negative) 02/21/22 09:30 Patient ABO/Rh Cancelled 02/22/22 13:22 Antibody Screen NEGATIVE 02/21/22 09:40 Subjective Interval history since last seen: Noris has been experiencing back pain and pressure. She has attempted a few pushes but has little urge to push and pushing was ineffective. The cervix is 9 cms. An IUPC was placed which shows inadequate contraction pattern . Many position changes were attempted with limited descent. Results Hemoglobin/Hematocrit: Hgb Cancelled 02/22/22 13:22 Hct Cancelled 02/22/22 13:22 Abnormal Lab Findings: Abnormal Labs 02/21/22 02/21/22 09:40 09:40 RDW 14.8 H MPV 12.3 H Sodium 134 L Alkaline Phosphatase 155 H Albumin 2.5 L
--- NOTE | 2022-02-23 22:57 | PGE_ITS ---
Date of service: 02/23/22 Time of Service: 22:57 Informed Consent Informed Consent: Induction of Labor (cook catheter, pitocin), Risk,Benefits,Alternatives Discussed and Other (Nitrous use) Pelvic Exam Dilation: 10 station: +1 Contractions Monitor Mode: Internal Contraction Frequency(min): every 3-4 minutes Contraction Duration(sec): 60-70 Intensity: Moderate/Strong IUPC resting tone (mmHg): 20 IUPC peak pressure (mmHg): 40 Fetus A Monitor: External (US) Heart Rate Baseline: 130 Presentation: Vertex Variability: Moderate (6-25 BPM) Categories: Category I FHR Rhythm: Regular Accelerations: 15 X 15 Decelerations: None Assessment and Plan Assessment and plan (1) Encounter for induction of labor: Status: Acute Assessment and plan: Continue to support pushing efforts. Dr. Alegria called and report was given regarding Audra's status. Anticipate . Objective Temp Pulse Resp BP Pulse Ox 98.6 F 93 H 20 135/68 97 02/23/22 22:07 02/23/22 22:22 02/23/22 21:41 02/23/22 22:22 02/23/22 15:50 Laboratory Results WBC Cancelled 02/22/22 13:22 RBC Cancelled 02/22/22 13:22 Hgb Cancelled 02/22/22 13:22 Hct Cancelled 02/22/22 13:22 MCV Cancelled 02/22/22 13:22 MCH Cancelled 02/22/22 13:22 MCHC Cancelled 02/22/22 13:22 RDW Cancelled 02/22/22 13:22 Plt Count Cancelled 02/22/22 13:22 MPV Cancelled 02/22/22 13:22 Sodium 134 mmol/L (136-145) L 02/21/22 09:40 Potassium 4.4 mmol/L (3.5-5.1) 02/21/22 09:40 Chloride 101 mmol/L (98-107) 02/21/22 09:40 Carbon Dioxide 25.5 mmol/L (21.0-32.0) 02/21/22 09:40 Anion Gap 7.5 mmol/L (3-11) 02/21/22 09:40 BUN 7 mg/dL (7-18) 02/21/22 09:40 Creatinine 0.7 mg/dL (0.55-1.02) 02/21/22 09:40 Est GFR (CKD-EPI 2020) 122.25 (mL/min/1.73m2) 02/21/22 09:40 Glucose 83 mg/dL (74-106) 02/21/22 09:40 Uric Acid 4.8 mg/dL (2.6-6.0) 02/21/22 09:40 Calcium 9.0 mg/dL (8.5-10.1) 02/21/22 09:40 Total Bilirubin 0.3 mg/dL (0.2-1.0) 02/21/22 09:40 AST 26 U/L (15-37) 02/21/22 09:40 ALT 17 U/L (14-59) 02/21/22 09:40 Alkaline Phosphatase 155 U/L (46-116) H 02/21/22 09:40 Lactate Dehydrogenase 148 U/L (81-234) 02/21/22 09:40 Total Protein 6.6 g/dL (6.4-8.2) 02/21/22 09:40 Albumin 2.5 g/dL (3.4-5.0) L 02/21/22 09:40 Ur Random Creatinine 35.13 mg/dL 02/21/22 10:45 U Random Total Protein < 6.0 mg/dL 02/21/22 10:45 U [place] Prot/Creat Ratio 02/21/22 10:45 COVID-19 Source Nasal/Nares 02/21/22 09:30 SARS-CoV-2 (PCR) Negative (Negative) 02/21/22 09:30 Patient ABO/Rh Cancelled 02/22/22 13:22 Antibody Screen NEGATIVE 02/21/22 09:40 Subjective Interval history since last seen: Audra rested on her side and began feeling more urge to push. She was pushing in side lying intermittently with her leg on the peanut ball. The epidural was discontinued with Audra's consent and she was encouraged to begin actively pus osmin. She is getting more urge to push and pushing effectively. Results Hemoglobin/Hematocrit: Hgb Cancelled 02/22/22 13:22 Hct Cancelled 02/22/22 13:22 Abnormal Lab Findings: Abnormal Labs 02/21/22 02/21/22 09:40 09:40 RDW 14.8 H MPV 12.3 H Sodium 134 L Alkaline Phosphatase 155 H Albumin 2.5 L
[2022-02-24] VITALS (29 sets, daily range): BP systolic 118–165; BP diastolic 65–91; PULSE 90–118; RESP 14–18; TEMP 36.6–39.3; O2SAT 95–98
[2022-02-24] MEDS: Lactated Ringers 1,000 ML 125 ML IV ×2 (00:10→07:02)
[2022-02-24] MEDS: miSOPROStol 200 MCG TAB 400 MCG SL (01:42)
[2022-02-24] MEDS: Hamamelis Leaf/Glycerin 100 EACH BOX PR (02:35)
[2022-02-24] MEDS: Ibuprofen 600 MG TAB PO ×3 (02:35→17:57)
[2022-02-24] MEDS: Acetaminophen 325 MG TAB 650 MG PO ×3 (02:35→17:56)
--- NOTE | 2022-02-24 02:38 | OBVDS_ITS ---
Date of service: 02/24/22 Time of Service: 02:39 OB Labor/ Delivery Information Baby A Delivery Delivery Method: Spontaneaous Presentation: Vertex Amniotic Fluid: Meconium Estimated Blood Loss: 200 Delivery Outcome: Liveborn Complications: none Transferred: Remains with Mother Note: Audra began feeling a stronger urge to push after the epidural was discontinued and she began pushing well. FHTs 120 during first stage of labor. FHTs 120s in second stage. Second stage huddle was done. Spontaneous delivery of male infant delivered in TRAV position. There was an anterior hand presenting with the face. The Baby was placed on mother's abdomen and dried and stimulated. He had a Spontaneous cry. Cord was clamped and cut by the baby's father . The placenta delivered spontaneously and appears to be intact with a three vessel cord. Pitocin 30 units IV was administered after delivery of the placenta. The perineum was inspected and a first degree laceration was encountered. There was a small amount of bright bleeding and cytotec 400 mcg SL was given with good effect. The baby did attempt to breastfeed. After delivery, Mother and baby and father of the baby were stable and bonding well in the delivery room and there were no complications. His name is Loreto. Providers Nurse Medical Billing Coder: Mary Pierce Nurse: Lilo Campbell Nurse: Cassandra Almeida Labor/Delivery Information Number of Babies in Womb: 1 Steroids Given: None Reason Steroids Not Administered: N/A Group Beta Strep: Negative Antibiotics Administered: No Rubella Status: Nonimmune Blood Type: A+ Varicella Immunity: Immune Maternal Complications: None Shoulder Dystocia: No Stages of Labor Onset of Labor Date: 02/20/22 Onset of Labor Time: 11:00 Complete Dilatation Date: 02/23/22 Labor - Stage 1 Duration: 72 hours and 0 minutes ROM Baby A: 02/23/22 ROM Baby A: 05:56 Infant Delivery Date-Baby A: 02/24/22 Delivery Time-Baby A: 01:12 Placenta Delivery Date-Baby A: 02/24/22 Placenta Delivery Time-Baby A: 01:22 Labor-Stage 3 Duration: 10 minutes Total Length of Labor-Baby A: 86 hours and 12 minutes Placenta Cultured: No Placenta Status: Delivered Baby A Gender: Male Gestational Status: Term (39-41.6 wks) Gestational Age in Weeks/Days: 40 Weeks and 1 Days weight: 8 lb 4.454 oz Score-1 Minute Interval(Baby A) Heart Rate-1 minute: 100 BPM or Greater Respiratory Effort- 1 minute: Slow Respiration/Weak Cry Muscle Tone-1 minute: Active Movement Reflex Response-1 minute: Prompt Response Color-1 minute: Bluish Hands or Feet Total Score-1 minute: 8 Score-5 Minute Interval(Baby A) Heart Rate- 5 minute: 100 BPM or Greater Respiratory Effort-5 minute: Spontaneous/Strong Cry Muscle Tone-5 minute: Active Movement Reflex Response-5 minute: Prompt Response Color-5 minute: Bluish Hands or Feet Total Score- 5 minute: 9 Procedure Procedures: IUPC Insertion , indication for IUPC: pitocin augmentation and difficulty monitoring contractions Interventions Repair of Laceration Type: Perineal, Laceration Extension: First Degree. Sponge Count Correct: No Sponges Placed in Vagina, Sharp Count Correct: Yes.
[2022-02-24] MEDS: Methylergonovine 0.2 MG TAB PO ×4 (06:18→20:50)
[2022-02-24] MEDS: Oxytocin/Normal Saline 30 UNIT/500 ML BAG 95 UNITS IV (06:22)
--- NOTE | 2022-02-24 06:41 | OBPPV_ITS ---
Date of service: 02/24/22 Time of Service: 06:41 Assessment and Plan Assessment and plan (1) hemorrhage, delivered: Status: Acute Assessment and plan: Will administer methergine 0.2 mg PO QID and continue to assess for bleeding. Subjective Subjective Interval history: Noris got up to the Bathroom 2 hours after delivery and tolerated ambulating well. Pitocin infusion was completed and discontinued by RN. It was reported that she voided the first time up to the bathroom. She continued to have bright bleeding. She got up to the bathroom a second time and did not void. I was paged to assess Audra at 0600. Her fundus was firm and up 2 FB from umbilicus. She got up to the bathroom again and passed 100 cc of bright blood on the toilet. She tolerated ambulation well. The fundus remained up 2 FB. I ordered methergine 0.2 mg IM and I straight catheterized her for 950 cc clear u rine. The fundus was down 1 FB after straight catheterization. The pitocin infusion of 30 u/min Iv was restarted. Between the chux and the 100 cc blood in the bathroom, there was 435 cc of blood by QBL during this episode. Total EBL is Exam Physical Exam Vital signs: Temp Pulse Resp BP Pulse Ox 99.3 F 99 H 18 118/72 98 02/24/22 06:00 02/24/22 06:37 02/24/22 06:37 02/24/22 06:37 02/24/22 06:37 Results Hemoglobin/Hematocrit: Hgb Cancelled 02/22/22 13:22 Hct Cancelled 02/22/22 13:22 Abnormal Lab Findings: Abnormal Labs 02/21/22 02/21/22 09:40 09:40 RDW 14.8 H MPV 12.3 H Sodium 134 L Alkaline Phosphatase 155 H Albumin 2.5 L
[2022-02-24] MEDS: Tranexamic Acid 1,000 MG/10 ML VIAL 1000 MG IVP (07:10)
[2022-02-24 07:42] LABS: HCT 32.9 % (36.0-46.0); HGB 11.3 g/dL (11.2-15.7); MCH 29.9 pg (27.0-33.0); MCHC 34.3 % (32.0-36.0); MCV 87 fL (80-95); MPV 11.9 fL (8.0-11.0); Platelet Count 195 10^3/uL (130-400); RBC 3.78 10^6/uL (3.93-5.22); RDW 14.9 % (11.7-14.6); RDW-SD 47.3 fL
[2022-02-24 07:45] LABS: WBC 23.09 10^3/uL (4.4-10.8)
[2022-02-24] MEDS: miSOPROStol 200 MCG TAB 600 MCG SL (07:52)
--- NOTE | 2022-02-24 08:54 | W.PM.OBPNV1 ---
Date of service: 02/24/22 Time of Service: 08:00 Assessment and Plan Assessment and plan (1) hemorrhage, delivered: Status: Acute Assessment and plan: After clots extracted, bleeding was minimal and Noris was stable. Will continue to administer methergine 0.2 mg PO QID. Will continue pitocin at 50 cc per hour and continue to assess. Stat CBC drawn at 0735 11.3/32.9. Dr Mendoza is the covering organizational development consultant and she came in to meet Noris and assess her. Subjective Subjective Narrative: Audra continued to have bright bleeding. Martinez catheter placed and 200 cc clear urine out. IV came out and was restarted by RN. TXA 1000 mg IV infused after Iv restarted and PO methergine ordered. BP 120s/70s and pulse 100-110. Audra is sitting up nursing her baby without symptoms. I discussed performing a procedure with Audra to remove clots from the lower uterine segment and Audra is agreeable to this. Nitrous oxide offered for pain relief and clots extracted from the cervix. QBL on chux is 485 for a total QBL of [address] Alegria was present on the unit shortly after the clots were extracted. She suggested a repeat dose of cytotec 600 cg and that was administered. Exam Physical Exam Vital signs: Temp Pulse Resp BP Pulse Ox 99.3 F 99 H 18 118/72 98 02/24/22 06:00 02/24/22 06:37 02/24/22 06:37 02/24/22 06:37 02/24/22 06:37 Results Hemoglobin/Hematocrit: Hgb 11.3 g/dL (11.2-15.7) 02/24/22 07:35 Hct 32.9 % (36.0-46.0) L 02/24/22 07:35 Abnormal Lab Findings: Abnormal Labs 02/21/22 02/21/22 02/24/22 09:40 09:40 07:35 WBC 23.09 H RBC 3.78 L Hct 32.9 L RDW 14.8 H 14.9 H MPV 12.3 H 11.9 H Sodium 134 L Alkaline Phosphatase 155 H Albumin 2.5 L
--- NOTE | 2022-02-24 15:47 | W.ANESPOSTOP ---
Postoperative Evaluation Date, Time and Location Date Performed: 02/24/22 Time Performed: 12:00 Patient Location: Obstetrics Vital Signs Most Recent Imported Vital Signs: Most Recent Vital Signs Temp Pulse Resp BP Pulse Ox 37.7 C H 103 H 17 130/80 95 02/24/22 12:13 02/24/22 12:13 02/24/22 12:13 02/24/22 12:13 02/24/22 12:13 Pain Score Most Recent Pain Score: Most Recent Pain Score Pain Level [Lower Abdomen] 5 02/23/22 04:45 Pain Level [Lower Back] 2 02/23/22 04:45 Pain Level 3 02/24/22 11:58 Assessment Mental Status: Awake (Alert & Oriented to Patient Baseline) Airway and Respiratory Function: Patent airway with normal (patient baseline) respiratory exam Cardiovascular Function: Hemodynamically Stable Hydration Status: Adequately Hydrated Nausea & Vomiting: No Nausea or Vomiting Pain: Pain is tolerable per patient Peripheral Nerve Block: Patient did not receive a nerve block
[2022-02-25 04:40] VITALS: BP 128/68; PULSE 72; RESP 16; TEMP 36.8; O2SAT 99
[2022-02-25 07:31] LABS: HCT 29.9 % (36.0-46.0); HGB 9.8 g/dL (11.2-15.7); MCH 29.1 pg (27.0-33.0); MCHC 32.8 % (32.0-36.0); MCV 89 fL (80-95); Platelet Count 178 10^3/uL (130-400); RBC 3.37 10^6/uL (3.93-5.22); RDW 15.2 % (11.7-14.6); RDW-SD 48.8 fL; WBC 10.44 10^3/uL (4.4-10.8)
[2022-02-25] MEDS: Acetaminophen 325 MG TAB 650 MG PO (09:42)
[2022-02-25] MEDS: Methylergonovine 0.2 MG TAB PO ×2 (09:43→16:32)
[2022-02-25] MEDS: Ibuprofen 600 MG TAB PO (09:43)
[2022-02-25] MEDS: Normal Saline Flush 10 ML SYR IVP (09:44)
[2022-02-25 10:10] VITALS: BP 113/75; PULSE 72; RESP 20; TEMP 36.6
--- NOTE | 2022-02-25 12:25 | DSE_ITS ---
Date of service: 02/25/22 Time of Service: 12:25 DS: Diagnosis Discharge Diagnosis (1) hemorrhage, delivered: Status: Acute Asessment and Plan: Hgb 9.8 and HCT 29.9 this morning. Audra has been out of bed and Caring for baby independently. Voiding without difficulty. Pain is managed well with oral analgesics. Voiding without difficulty. well. BP 128/68. A - stable mother and baby , Post day 1, S/P post hemorrhage. S/P induction of labor for gestational hypertension. BP WNL. P - Discharge to home today. Routine post instructions. [facility]. Discharge Plan Disposition Patient Disposition: HOME Condition: Good Discharge Details Reason For Visit: Gestational Hypertension in Third Trimester Admit Date/Time: 02/21/22 09:29 Admit Provider: Mary Reyna Attending Provider: Mary Reyna Primary Care Provider: Abida Arenas Home Meds and New Rx's Prescriptions: Continued albuterol sulfate 90 mcg/actuation aerosol powdr breath activated 2 inh inhalation Q6H PRN prenat.vits,maciej,[id number] Tablet 1 tab PO DAILY aspirin 81 mg tablet,delayed release (DR/EC) 81 mg PO DAILY Qty: 90 3RF Rx Instructions: 1 tab daily alternating with 2 tabs every other day Discharge Instructions Stand Alone Forms: BC Instructions, BC Post Vaginal Deliver Activity:: Activity as Tolerated Equipment/Supplies:: No Equipment Needed Diet:: As Tolerated Discharge Orders Discharge Orders: Discharge Order (Routine); Ordered 02/25/22 Ordered By: Mary Pierce OB:DS Summary Summary Vaginal Delivery Method: Spontaneaous Episiotomy Description: None Laceration Description: Perineal Laceration Extension: First Degree Contraception Discussed Contraception Discussed: Yes Contraceptive Plan: Medroxyprogesterone, [place] Infant Gender-Baby A: Male weight: 8 lb 4.454 oz Status at Discharge Functional status at discharge: independent ambulation Overall status at discharge: patient is back to baseline Mental Status: mental status grossly normal Speech and Movement: speech and movement normal Mood: congruent mood Affect: normal affect Exam Physical Exam Vital signs: Temp Pulse Resp BP Pulse Ox 98.2 F 72 16 128/68 99 02/25/22 04:40 02/25/22 04:40 02/25/22 04:40 02/25/22 04:40 02/25/22 04:40 Respiratory Exam Respiratory Exam: Normal Cardiovascular Exam Cardiovascular Exam: Normal Fundal Exam Fundus: Below Umbilicus Exam Perineum: Intact External: Present normal urethra appearance Extremities Exam Extremity Exam: Normal Skin Exam Skin Exam: Normal Psychiatric Exam Psychiatric Exam: Normal PFSH All Active Problems (Updated 02/24/22 @ 06:48 by Mary Pierce CNM) hemorrhage, delivered (Acute) Encounter for induction of labor (Acute) Gestational hypertension without significant proteinuria in third trimester (Acute) Low back pain (Acute) (Acute) Seasonal affective disorder (Acute) Per Patient COVID-19 virus infection (Acute) Anitgen test+ on 08/27, pt vaccinated and boosted, mild sx Rubella non-immune status, antepartum (Acute) Cephalosporin adverse reaction (Acute) History of penicillin-type antibiotic allergy (Acute) BMI 35.0-35.9,adult (Acute) (Acute) Asthma (Chronic) Medical History Encounter for IUD insertion Family history of MRSA infection has had MRSA infections twice Family History Father Well adult Mother Well adult Paternal Aunt Breast cancer Social History Smoking risk assessment performed?: No Alcohol Intake: never Drug use: Never Substance use type: does not use Do you feel safe at home: Yes Do you feel safe in your relationship?: Yes History History 1 Para 0 Hx # Term Pregnancies 0 Multiple births 0 Hx # Pregnancies 0 Ectopic pregnancies 0 AB induced 0 Hx Number of Living Children 0 AB spontaneous 0 DS: Data Vitals/I&O Vitals and I&O: Vital Signs Temperature 98.2 F 02/25/22 04:40 Temperature Source Oral 02/22/22 04:35 Pulse 72 02/25/22 04:40 Pulse Rhythm Regular 02/24/22 20:27 Respiratory Rate 16 02/25/22 04:40 Respiratory Depth Normal 02/24/22 20:27 Blood Pressure 128/68 02/25/22 04:40 Blood Pressure Mean 88 02/25/22 04:40 Pulse Oximetry 99 02/25/22 04:40 Oxygen Delivery Method Room Air 02/22/22 04:35 Oxygen Flow Rate 0 02/22/22 04:35 Pain Level 3 02/25/22 09:43 Comment 02/23/22 18:10 Intake & Output 02/24/22 02/25/22 02/25/22 23:59 11:59 23:59 Intake Total 1965.466 / 3763.382 Output Total 4600 / 7345 2099 Balance -2634.534 / -3581.618 -2099 Intake: IV 1965.466 / 3763.382 Output: Urine 4600 / 5950 2099 Other: Urine Color Pale Yellow Urine Appearance Clear Data Completed and Pending Labs on day of discharge: Labs from last 24 hours 02/25/22 07:12 WBC 10.44 RBC 3.37 L Hgb 9.8 L Hct 29.9 L MCV 89 MCH 29.1 MCHC 32.8 RDW 15.2 H Plt Count 178 MPV 12.0 H
[2022-02-25] MEDS: Measles, Mumps, & Rubella Vaccine 0.5 ML VIAL SC (15:36)
== END 2022-02-25 19:00 | disposition home or self-care (01) | DRG 807 ==
LOC: OBS 02-22 08:57 → BCD 02-28 13:22 → OBS 02-28 13:22
PROVIDERS: Advanced Practice Midwife; Admitting Provider Advanced Practice Midwife; PCP Nurse Practitioner Family; Visit Provider Advanced Practice Midwife
DX: O13.4 Gestational [pregnancy-induced] hypertension without significant proteinuria, complicating childbirth (principal); Z37.0 Single live birth; Z3A.39 39 weeks gestation of pregnancy; M54.50 Low back pain, unspecified; F39 Unspecified mood [affective] disorder; J45.909 Unspecified asthma, uncomplicated; O99.52 Diseases of the respiratory system complicating childbirth; O77.0 Labor and delivery complicated by meconium in amniotic fluid; O70.0 First degree perineal laceration during delivery; O72.1 Other immediate postpartum hemorrhage; Z86.16 Personal history of COVID-19
CPT/HCPCS: 36415; 80053; 85027; 86850; 86900; 86901; 87635; 90686; 59025; 82565; 83615; 84156; 84550; 87086; J2405; J3010; J3490

== ENCOUNTER 2022-02-27 10:31 | Outpatient (CLI) | payer BC, MEDICAID, SELFPAY ==
[2022-02-27 10:35] VITALS: TEMP 36.5
[2022-02-27 10:56] LABS: Abs Immature Grans 0.03 10^3/uL (0.0-0.06); Absolute Basophil Count 0.04 10^3/uL (0.0-0.2); Absolute Eosinophil Count 0.29 10^3/uL (0.0-0.7); Absolute Lymphocyte Count 1.35 10^3/uL (1.2-3.4); Absolute Monocyte Count 0.34 10^3/uL (0.1-0.8); Absolute Neutrophil Count 6.76 10^3/uL (1.2-6.7); Basophils % 0.5; Eosinophils % 3.3; HGB 10.1 g/dL (11.2-15.7); Immature Grans % 0.3; Lymphocytes % 15.3; MCHC 32.6 % (32.0-36.0); MCV 89 fL (80-95); MPV 10.3 fL (8.0-11.0); Monocytes % 3.9; Neutrophils % 76.7; Platelet Count 322 10^3/uL (130-400); RBC 3.48 10^6/uL (3.93-5.22); RDW 14.6 % (11.7-14.6); RDW-SD 46.7 fL; WBC 8.81 10^3/uL (4.4-10.8)
--- NOTE | 2022-02-27 11:38 | PGE_ITS ---
Date of Service Date of service: 02/27/22 Time of Service: 11:38 Assessment and Plan Assessment and plan (1) hemorrhage, delivered: Assessment and plan: Bleeding is light currently. scant amount on pad that she has been wearing for 25 minutes. CBC with diff drawn today and WNL. HGb and HCT rising. daily iron PO recommended and vitamins. Due to decreased milk supply, Will treat with PO antibiotics for possible infection due to hemorhage and extraction of clots. Augmentin escribed x 14 days. RTO in 4 days for evaluation. (2) Perineal laceration during delivery: Status: Acute Assessment and plan: perineum suture line intact with no bruising or edema. Small right labial abrasion healing. This is the source of her discomfort. Tender to touch. I recommended bacitracin or neosporin ointment daily. (3) disorder, condition: Status: Acute Assessment and plan: Noris has an appointment tomorrow morning at [facility] pediatrics for weight check. They plan to supplement with formula in addition to breast feeding. Subjective Subjective Interval history since last seen: Noris and her came in to the center for baby's weight check. The baby's weight is down 13 %. Audra complains of increased bleeding today and she passed some clots today at home. She reports that she soaked a pad on the [address] to the hospital[address] She also complains of burning with voiding on her perineum and is concerned that there is a problem with her perineal laceration repair site. S/P IOL for gestational hypertension with vaginal delivery and late post hemorrhage (5 hours after delivery) with extraction of clots. EBL 1500 cc. BP 133/7 Temp 36.5. Objective Last Vital Signs Temp 97.7 F 02/27/22 10:35 Laboratory Results - last 24 hr 02/27/22 02/27/22 10:48 10:48 WBC 8.81 RBC 3.48 L Hgb 10.1 L Hct 31.0 L MCV 89 MCH 29.0 MCHC 32.6 RDW 14.6 Plt Count 322 D MPV 10.3 Immature Gran % 0.3 Neutrophils % 76.7 Lymphocytes % 15.3 Monocytes % 3.9 Eosinophils % 3.3 Basophils % 0.5 Nucleated RBC % 0.0 Absolute Neutrophils 6.76 H Absolute Lymphocytes 1.35 Absolute Monocytes 0.34 Absolute Eosinophils 0.29 Absolute Basophils 0.04 Patient ABO/Rh A Positive Antibody Screen NEGATIVE
== END 2022-02-27 11:45 | disposition home or self-care (01) ==
LOC: BCD 10:32 → OBS 10:51
PROVIDERS: PCP Nurse Practitioner Family; Visit Provider Advanced Practice Midwife
DX: O72.1 Other immediate postpartum hemorrhage (principal)
CPT/HCPCS: 86850; 86900; 86901; 85025; G0378

== ENCOUNTER 2023-03-14 02:55 | Outpatient (CLI) | payer MEDICAID, SELFPAY ==
[2023-03-14 15:58] LABS: Abs Immature Grans 0.08 10^3/uL (0.0-0.06); Absolute Basophil Count 0.04 10^3/uL (0.0-0.2); Absolute Lymphocyte Count 2.06 10^3/uL (1.2-3.4); Basophils % 0.3; Eosinophils % 0.8; HGB 13.8 g/dL (11.2-15.7); Immature Grans % 0.6; Lymphocytes % 16.2; MCHC 33.7 % (32.0-36.0); MCV 89 fL (80-95); MPV 10.8 fL (8.0-11.0); Monocytes % 6.4; Neutrophils % 75.7; Platelet Count 294 10^3/uL (130-400); RDW 13.8 % (11.7-14.6); RDW-SD 44.8 fL; WBC 12.74 10^3/uL (4.4-10.8)
[2023-03-14 15:59] LABS: Absolute Monocyte Count 0.82 10^3/uL (0.1-0.8); Absolute Neutrophil Count 9.64 10^3/uL (1.2-6.7)
[2023-03-14 16:11] LABS: Glucose,1 Hr (Glucola) 102 mg/dL (80-140)
[2023-03-14 16:33] LABS: ALT 11 U/L (14-59); AST 11 U/L (15-37); Albumin 3.5 g/dL (3.4-5.0); Alkaline Phosphatase 60 U/L (46-116); Anion Gap 8.3 mmol/L (3-11); BUN 9 mg/dL (7-18); Bilirubin, Total 0.2 mg/dL (0.2-1.0); CO2 25.7 mmol/L (21.0-32.0); CREATININE 0.6 mg/dL (0.55-1.02); Calcium 9.5 mg/dL (8.5-10.1); Chloride 102 mmol/L (98-107); Estimated GFR 126.09 (mL/min/1.73m2); Glucose 99 mg/dL (74-106); Potassium 3.6 mmol/L (3.5-5.1); Sodium 136 mmol/L (136-145); TSH (W/Ref FT4) 1.37 uIU/mL (0.36-3.74); Total Protein 7.5 g/dL (6.4-8.2)
[2023-03-16 08:17] LABS: Hepatitis B Surface Ag Negative (Negative)
[2023-03-16 08:37] LABS: Hepatitis C Ab w Rflx HCV PCR Negative (Negative)
[2023-03-16 09:06] LABS: HIV-1/2 Ag & Ab Screen Negative (Negative)
[2023-03-16 11:09] LABS: Rubella IgG Ab (UVM) Positive (See Note); Varicella IgG Antibody Positive (See Note)
[2023-03-17 16:20] LABS: Syphilis IgG w/Reflex Nonreactive (Nonreactive)
== END 2023-03-14 02:56 | disposition home or self-care (01) ==
LOC: LBO 02:56
PROVIDERS: Visit Provider Advanced Practice Midwife
DX: Z34.91 Encounter for supervision of normal pregnancy, unspecified, first trimester (principal); Z87.59 Personal history of other complications of pregnancy, childbirth and the puerperium; Z3A.00 Weeks of gestation of pregnancy not specified
CPT/HCPCS: 36415; 80053; 82950; 86787; 86803; 86850; 86900; 86901; 87340; 87389; 84443; 85025; 86762; 86780

== ENCOUNTER 2023-03-14 15:27 | Outpatient (REF) | payer MEDICAID, SELFPAY ==
[2023-03-14 17:31] LABS: *AMPHETAMINES SCREEN URINE Negative (Negative); *BARBITURATES SCREEN URINE Negative (Negative); *BENZODIAZEPINES SCREEN URINE Negative (Negative); COMMENT (LAB VIEW ONLY) 29.04 mg/dL; Cannabinoids THC Negative (Negative); Cocaine Screen,Urine Negative (Negative); METHADONE URINE SCREEN Negative (Negative); OPIATES URINE SCREEN Negative (Negative); PROTEIN < 6.0 mg/dL
[2023-03-14 17:34] LABS: Tricyclic Antidepressants Negative (Negative)
[2023-03-16 13:42] LABS: Chlamydia Result Negative (Negative); GC Result Negative (Negative)
[2023-03-21 13:26] LABS: Buprenorphine Negative ng/mL (Cutoff: 5.0); Norbuprenorphine Negative ng/mL (Cutoff: 2.5)
== END 2023-03-14 15:28 | disposition home or self-care (01) ==
LOC: LBN 15:27
PROVIDERS: Visit Provider Advanced Practice Midwife
DX: Z34.91 Encounter for supervision of normal pregnancy, unspecified, first trimester (principal); Z87.59 Personal history of other complications of pregnancy, childbirth and the puerperium; Z3A.00 Weeks of gestation of pregnancy not specified
CPT/HCPCS: 80307; 80348; 87491; 87591; 82565; 84156; 87086

== ENCOUNTER 2023-03-21 02:38 | Outpatient (CLI) | payer MEDICAID, SELFPAY ==
[2023-03-21 08:57] LABS: Panorama Kit Sent via Fed Ex
== END 2023-03-21 02:39 | disposition home or self-care (01) ==
LOC: LBO 02:38
PROVIDERS: Visit Provider Advanced Practice Midwife
DX: Z34.91 Encounter for supervision of normal pregnancy, unspecified, first trimester (principal); Z3A.10 10 weeks gestation of pregnancy
CPT/HCPCS: 36415

== ENCOUNTER 2023-05-10 02:40 | Outpatient (CLI) | payer SELFPAY ==
[2023-05-12 13:10] LABS: AFP 22.8 ng/mL; Calculated age at EDD 28 years; Cigarette smoking status non-Smoker; GA used in risk estimate Scan estimate; IVF Pregnancy No; Initial or repeat testing Initial testing; Insulin dependent diabetes No; Maternal Weight 205 lbs; Number of Fetuses 1; Physician Phone Number 802-748-7300; Prev Pregnancy w/NTD No; RECOMMENDED FOLLOW UP None.; Results Summary Normal risk
== END 2023-05-10 02:41 | disposition home or self-care (01) ==
LOC: LBO 02:40
PROVIDERS: Visit Provider Advanced Practice Midwife
DX: Z34.91 Encounter for supervision of normal pregnancy, unspecified, first trimester (principal)
CPT/HCPCS: 36415; 82105

== ENCOUNTER 2023-07-19 03:38 | Outpatient (CLI) | payer SELFPAY ==
[2023-07-19 09:41] LABS: HCT 37.5 % (36.0-46.0); HGB 12.1 g/dL (11.2-15.7); MCH 28.8 pg (27.0-33.0); MCHC 32.3 % (32.0-36.0); MCV 89 fL (80-95); MPV 10.4 fL (8.0-11.0); Platelet Count 230 10^3/uL (130-400); RDW-SD 45.1 fL; WBC 11.25 10^3/uL (4.4-10.8)
[2023-07-19 10:07] LABS: Glucose,1 Hr (Glucola) 91 mg/dL (80-140)
== END 2023-07-19 03:39 | disposition home or self-care (01) ==
PROVIDERS: Advanced Practice Midwife; Visit Provider Advanced Practice Midwife
DX: Z34.93 Encounter for supervision of normal pregnancy, unspecified, third trimester (principal); Z3A.28 28 weeks gestation of pregnancy
CPT/HCPCS: 36415; 82950; 85027

== ENCOUNTER 2023-09-13 10:11 | Outpatient (REF) | payer SELFPAY | END 2023-09-13 10:12 | disposition home or self-care (01) | LOC: LBN 10:11 | PROVIDERS: PCP Nurse Practitioner Family; Visit Provider Advanced Practice Midwife | DX: Z34.93 Encounter for supervision of normal pregnancy, unspecified, third trimester (principal); Z36.85 Encounter for antenatal screening for Streptococcus B; Z3A.36 36 weeks gestation of pregnancy | CPT/HCPCS: 87081 ==

== ENCOUNTER 2023-10-18 12:59 | Inpatient (IN) | payer SELFPAY ==
[2023-10-18] VITALS (32 sets, daily range): BP systolic 111–142; BP diastolic 56–96; PULSE 76–129; RESP 17–20; TEMP 36.5–36.9; O2SAT 97–100; BMI 42.2
--- NOTE | 2023-10-18 12:57 | PDOC.NST_ITS ---
<Statement entered by Bhumi Alegria DO - 10/18/23 13:27> Appropriate surveillance ALYSSA Date of service: 10/18/23 Time of Service: 12:57 NST Evaluation Reason for NST Reasons for Nonstress Test: OTHER, SEE COMMENT Reason for NST Other: post dates Gestational Age Gestational Age in Weeks and Days: 41 Weeks and 0Days Test and Monitor Explained Test/Monitor Explained: Test Explained, Monitor Explained and Patient Verbalized Understanding Vital Signs Blood Pressure: 142/95 Pulse: 105 Temperature: 98.2 F Urine Results Urine Protein: Negative Urine Ketones: Negative Urine Glucose: Negative Urine Blood: Negative NST Information Time on Monitor: 12:24 NST Interventions: PO Hydration Note Ultrasound Done: ADITI (Postdates) Total ADITI: 9.5 Other Pertinent Findings: Heart Rate and Presentation (Vertex) Coding for ADITI w/NST: Completed Exam and Presentation Presentation Results: Cephalic Coding for Presentation w/NST: Completed Exam. NST Note Note: NST performed by midwifery. [id number] ultrasound, ADITI equals 9.5, vertex, anterior fundal placenta-ALYSSA NST Reviewed and Verified by: Bhumi Alegria
--- NOTE | 2023-10-18 13:10 | HPE_ITS ---
Date of service: 10/18/23 Time of Service: 13:10 Assessment and Plan Assessment and plan (1) 41 weeks gestation of : Status: Acute Assessment and plan: 1. NST for 41 weeks done, reactive. ADITI normal. VE done to discuss induction and was found to be advanced dilation, 5-6 90 -1 2. Admit to BC, IV access, plan AROM and observe for 4 hours for labor, if not in active labor in the evening will augment with pitocin 3. Support labor and expect NVD. Dr. Alegria is aware of patient status and plan of care. K[facility] OB-HPI Labor/Delivery History of Present Illness Reason for Visit: NST Chief Complaint: Other (NST for 41 weeks, Normal ADITI, advanced dilation so admitted for induction). JAMIE Calculator Estimated Delivery Date Method Current WG Current Estimate 10/11/23 LMP (Certain) 41w 0d Other Estimates 10/12/23 Ultrasound #1 40w 6d History of Present Expected Delivery Route/Plan - CNM FOB/ - Jose Stephens BB yes to circ [place] Wants to avoid epidural, wants to try the tub and nitrous oxide GBS negative Specific Issues/Plan 1. History of gestational hypertension, CMP WNL, P/C ratio <0.6 2. Late hemorrhage with urinary retention, Total EBL 635, 2nd stage management discussed, IV access in labor 3. BMI 36, early glucola - 102, glucose at 28 weeks - 91 4. Low dose ASA to start at 12 weeks 5. cfDNA LR male, AFP only normal risk 6. Anatomy incomplete, repeat 05/31 completed & nml 7. History of anxiety and SAD , Treatment with fluoxetine, Stopped taking at 36 weeks. 8. Desires TL if is indicated, MD Consult 09/20/23 9. groin pain on right - comfort measures, Assessment: History Reviewed & Current Informed Consent Informed Consent: Induction of Labor and Risk,Benefits,Alternatives Discussed Review of Systems All systems reviewed & are unremarkable except as noted in HPI and below (no questions or concerns) PFSH All Active Problems (Updated 10/18/23 @ 13:16 by Mary Reyna CNM) 41 weeks gestation of (Acute) History of gestational hypertension (Acute) (Acute) Acute adjustment disorder with anxiety (Acute) Seasonal affective disorder (Acute) Per Patient BMI 35.0-35.9,adult (Acute) Asthma (Chronic) Medical History Cephalosporin adverse reaction COVID-19 virus infection Anitgen test+ on 08/27, pt vaccinated and boosted, mild sx Encounter for IUD insertion Family history of MRSA infection has had MRSA infections twice History of penicillin-type antibiotic allergy disorder, condition Low back pain Perineal laceration during delivery hemorrhage, delivered Routine follow-up Rubella non-immune status, antepartum Family History Father Well adult Mother Well adult Paternal Aunt Breast cancer Social History Smoking/Tobacco Use Status: Never Smoking risk assessment performed?: Yes Alcohol Intake: never Drug use: Never Substance use type: does not use Do you feel safe at home: Yes Do you feel safe in your relationship?: Yes History History 2 Para 1 Hx # Term Pregnancies 1 Multiple births 0 Hx # Pregnancies 0 Ectopic pregnancies 0 AB induced 0 Hx Number of Living Children 1 AB spontaneous 0 Past Pregnancies Del. Date GA/Weeks # Preg Succ Route Wgt Sex Labor Lgth Anesth esia Location [facility] 02/24/22 40 No Yes vaginal 8 lb 4.45 oz Male 12hrs regional BIBI Philip hemorrhage Delivery Date: 02/24/22 Last Updated by: Mary Pierce CNM IOL for gHTN, Late PPH after long pitocin induction and urinary retention of >950 cc. Total EBL 635cc. Did not require transfusion. Loreto Moscoso Allergies and Home Medications Allergies Allergy/AdvReac Type Severity Reaction Status Date / Time Tide Laundry Soap AdvReac Unknown Skin Rash Uncoded 10/11/23 13:59 Home Medications Medication Instructions Recorded Confirmed Type albuterol sulfate 90 mcg/actuation 2 inh inhalation Q6H PRN 06/02/20 10/11/23 History breath activated powder inhaler prenat.vits,maciej,[id number] 1 tab PO DAILY 06/23/21 10/11/23 History vitamin B complex (B 1 tab PO DAILY 06/27/22 10/11/23 History Complex-Vitamin B12 tablet) aspirin 81 mg tablet,delayed 81 mg PO .COMPLEX 04/11/23 10/11/23 History release (Adult Low Dose Aspirin) aspirin 81 mg tablet,delayed 81 mg PO .COMPLEX 04/11/23 10/11/23 History release (Adult Low Dose Aspirin) Exam Physical Exam Vital signs: Pulse BP 99 H 136/90 10/18/23 12:28 10/18/23 12:28 Vital Signs Reviewed: Yes Narrative: will get pre-eclampsia labs with admission Constitutional Constitutional: no acute distress, average body habitus and cooperative Comments: arrived for NST and wanted VE to discuss scheduling induction. 5-6cm 90% VTX -1. Patient prefers to stay and be induced by AROM and if needed will add pitocin this evening. K[facility] Detailed Labor and Delivery Exam Dilation: 5.5 Effacement (%): 90 station: -1 Position: ROP Cervix position: mid Consistency: soft Becerra Score: Cervical Points Exam 0 1 2 3 Dilation Closed 1-2cm 3-4 cm 5-6cm Effacement 0-30% 40-50% 60-70% 80% Consistency Firm Medium Soft Station -3 -2 -1,0 +1,+2 Position Posterior Mid Anterior BECERRA Score(Cervical Ripeness Score): 11 Amniotic Membrane Status: Intact (planning AROM for induction) Monitor Mode: Palpation Contraction Frequency(min): 5-9 minutes Contraction Duration(sec): irregular Contraction Intensity: Mild Fetus A Heart Rate Baseline: 140 Monitor Accelerations: 15 X 15 Monitor Decelerations: None Variability: Moderate (6-25 BPM) Categories: Category I Est. Weight: 8 lb HEENT Exam HEENT Exam: Normal Neck Exam Neck Exam: Normal (normal visual inspection) Chest/Brest/Axilla Exam Chest Exam: Normal Breast Exam Breast Exam: Not Done Respiratory Exam Respiratory Exam: Normal Cardiovascular Exam Cardiovascular Exam: Normal Rectal Exam Rectal Exam: Not Done Exam Exam: Normal Extremities Exam Extremities Exam: Normal Back/Spine/Pelvis Exam Back Exam: Normal Skin Exam Skin Exam: Normal Neurological Exam Neurological Exam: Normal Psychiatric Exam Psychiatric Exam: Normal Results Results Group Beta Strep: Negative Blood Type: A+ Rubella Status: Immune Varicella Immunity: Immune Lab Results: CF neg, GC CT neg, HIV neg, Hep B&C neg, Syphilis neg, 1 hour 91, cfDNA low risk male Risk Assessment Risk for Shoulder Dystocia Historical/Initial OB: POSITIVE FOR: Pre- BMI>30; NEGATIVE FOR: Pelvic Abnormality, Previous Shoulder Dystocia or Previous M acrosomia 40 Weeks: NEGATIVE FOR: EFW> 4500 gms, Maternal Weight Gain >40lb or Post Dates Date/Initial: 03/14/23 Delivery Plan @ 40 wks: Induction 41 weeks Risk for Pre-Eclampsia Date Initiated/Initials: 03/14/23: Yes, if one or more: POSTIVE FOR: Hx Pre-E/Gest HTN; NEGATIVE FOR: Chronic HTN, Multiple Gestation, Pre-gestational DM, Renal Disease, Systemic Lupus or APA Syndrome Yes, if 2 or more: POSITIVE FOR: BMI>30; NEGATIVE FOR: Nulliparity, Age>= 35 yrs, >10yr btwn pregnancies, ethinicty, Mother/Sister w/ Pre-E or Previous IUGR Risk for Post- Hemorrhage Initial: POSITIVE FOR: Previous PPH; NEGATIVE FOR: Multiple Gestation, Known Clotting Deficiency, Grand Multiparity or Anticoagulation 40 Weeks: POSITIVE FOR: Gestation HTN or Pre-E (some elevated BP's will do pre- eclampsia assessment in labor) Counseled re: Active Management: Yes Date/Initials: 10/18/23 Risks Reviewed Risks Reviewed Upon Admission: Yes (increased risk for PPH due to history and pre-eclampsia due to history )
[2023-10-18 13:27] LABS: HCT 42.1 % (36.0-46.0); HGB 13.9 g/dL (11.2-15.7); MCH 28.7 pg (27.0-33.0); MCV 87 fL (80-95); MPV 11.7 fL (8.0-11.0); Platelet Count 234 10^3/uL (130-400); RBC 4.84 10^6/uL (3.93-5.22); RDW 15.2 % (11.7-14.6); WBC 11.36 10^3/uL (4.4-10.8)
[2023-10-18 13:47] LABS: ALT 15 U/L (14-59); AST 14 U/L (15-37); Albumin 2.8 g/dL (3.4-5.0); Alkaline Phosphatase 171 U/L (46-116); Anion Gap 10.1 mmol/L (3-11); BUN 10 mg/dL (7-18); Bilirubin, Total 0.3 mg/dL (0.2-1.0); CO2 25.9 mmol/L (21.0-32.0); CREATININE 0.5 mg/dL (0.55-1.02); Calcium 9.4 mg/dL (8.5-10.1); Chloride 103 mmol/L (98-107); Estimated GFR 130.94 (mL/min/1.73m2); Glucose 81 mg/dL (74-106); Potassium 3.9 mmol/L (3.5-5.1); Sodium 139 mmol/L (136-145); Total Protein 6.9 g/dL (6.4-8.2)
[2023-10-18] MEDS: Normal Saline Flush 10 ML SYR IVP (13:57)
[2023-10-18 14:24] LABS: PROTEIN 11.2 mg/dL; Prot/Crea Ur Ratio 0.28
[2023-10-18] MEDS: Oxytocin 10 UNITS/ML VIAL IM (16:36)
--- NOTE | 2023-10-18 16:51 | PLAC_PTH ---
PATIENT: Noris Stephens LOC: OBS U#:[id number] AGE/SX: 28/F ROOM: OBS.305 RE10/18/[address]: Mary Reyna CNM : 1995 BED: A DIS: 10/20/2023 SPEC #: [id number] RECD: 10/18/23 17:47 STATUS: ZOE REQ #: [id number] MARICEL: 10/18/23 16:[address]: Mary Reyna DEPT: Surgical Specimen RECD BY: Bridget Lopez ENTERED: 10/18/23 17:47 SP TYPE: PLAC OTHR DR: Santino King Tissues: 1 - PLACENTA (3RD TRIMESTER) Procedures: GROSS AND MICRO LEVEL 5 Comments: [id number]
[2023-10-18] MEDS: Oxytocin/Normal Saline 30 UNIT/500 ML BAG 334 UNITS IV (17:00)
[2023-10-18] MEDS: miSOPROStol 200 MCG TAB 400 MCG SL (17:00)
[2023-10-18] MEDS: TRANEXAMIC ACID/SOD. CHL. 1,000 MG/100 ML BAG 60 MG (17:08)
[2023-10-18] MEDS: Carboprost 250 MCG/ML AMP (17:22)
--- NOTE | 2023-10-18 17:31 | OBVDS_ITS ---
Date of service: 10/18/23 Time of Service: 17:31 OB Labor/ Delivery Information Baby A Delivery Delivery Method: Spontaneaous Presentation: Cephalic Cephalic Position: Vertex Vertex Position: Right Occipital Anterior Cord Description-Baby A: 3 Vessels, Nuchal Cord (X1 loose reduced before shoulders delivered) and Clamped/Cut Amniotic Fluid: Meconium (thin mec. ) Estimated Blood Loss: 1500 Delivery Outcome: Liveborn Infant Complications: see resuscitation Transferred: Other (radiant warmer for resuscitation) Providers Nurse Teaching Dietitian: Mary Reyna Nurse: Lilo Harman Nurse: Alina Martinez Labor/Delivery Information Number of Babies in Womb: 1 Steroids Given: None Reason Steroids Not Administered: N/A Group Beta Strep: Negative Antibiotics Administered: No Rubella Status: Immune Blood Type: A+ Varicella Immunity: Immune Maternal Complications: Hemorrhage Shoulder Dystocia: Yes Note: Audra presented for scheduled NST today at approximately 1230 due to being 41 weeks gestation. She had VE done to assess for potential IOL and was found to be 5.5cm and 9-% effaced with VTX -1. The decision was made for her to be admitted and to perform AROM for induction with plan to add Pitocin if not in active labor by 1800. Initial tracing was CAT I and remained that after AROM at 1359 for thin pale green meconium. Her labor progressed and at 1524 she was in tub and using Nitrous for pain management. At 1555 she had involuntary urge to push and VE small anterior lip that reduced quickly. Second stage huddle was held and plan for using Pitocin 10 units IM after placenta and patient decided she wanted to remain in tub for delivery. She utilized breathing down to get baby to at approximately 1632, nuchal cord X 1 loose reduced easily. CNM noted that shoulders were not moving with maternal pushing effort. CNM requested tub to be emptied and declared shoulder dystocia. Emilee maneuver was utilized immediately and maternal pushing effort but no movement of shoulders occurred even with addition of attempted suprapubic pressure by RN. Within a minute we had patient move to hands and knees but that limited CNM's access to baby while in tub and decision was made quickly to move out of tub to mat on floor. Baby's head was supported while Mother moved. Once on the mat and placed in McRobert's again, suprapubic pressure reapplied by RN. CNM was able to use Mello Maneuver to screw shoulders loose and posterior arm delivered and baby delivered at 1635. Cord was double clamped and cut immediately and baby was transferred to pre-heated radiant warmer. RN's had notified Nursing Personnel Interviewer and Manager Adult prior to baby delivering to attend due to dystocia. See Resuscitation note by RN and Dr. Forrester.Cord gas segment obtained by Mary Pierce CNM who was also attending when call for help was requested due to shoulder dystocia. Baby 48/9. Weight 4555g. Baby was able to be skin to skin while mom was on floor at 1639. 3 Vessel cord noted. Cord blood obtained. 10 units pitocin was given IM. Placenta delivered with gentle cord traction and maternal pushing effort at 1651, appeared intact. Fundus was firm and there was minimal blood noted so decision was made to move patient from mat on floor to bed. Baby was placed skin to skin with FOB. While walking to bed she had free flow of blood down legs and on floor. Once in bed we gave 800 mcg misoprostol at 1700. IV fluid with 30 units Pitocin was started per protocol at 1700 as well. Remote Computer Terminal Operator did bi-manual and lower uterine segment was boggy and large gush of fluid was noted. Remote Computer Terminal Operator requested Dr. Alegria attend. No perineal or vaginal laceration was noted by CNM. attended and did exam and removed some small clots from lower uterine segment. Remote Computer Terminal Operator also requested TXA and it was given at 1708. It appeared that lower uterine segment and fundus was firm so patient held baby and we reassessed after 15 minutes. During that time chux and pad weights combined with estimated blood loss on floor was 1500cc. On re- assessment by Dr. Alegria and Remote Computer Terminal Operator, it was noted that chux was saturated and lower uterine segment was not firm and large clot expressed. Dr. Alegria recommended D&C in OR and patient consented. See note by Dr. Alegria. Cord gases normal. [facility] Stages of Labor Onset of Labor Date: 10/18/23 Onset of Labor Time: 12:30 Complete Dilatation Date: 10/18/23 Complete Dilatation Time: 15:55 Labor - Stage 1 Duration: 3 hours and 25 minutes ROM Baby A: 10/18/23 ROM Baby A: 13:59 Delivery Date-Baby A: 10/18/23 Infant Delivery Time-Baby A: 16:35 Labor Stage 2 Duration: 40 minutes Placenta Delivery Date-Baby A: 10/18/23 Placenta Delivery Time-Baby A: 16:51 Labor-Stage 3 Duration: 16 minutes Total Length of Labor-Baby A: 4 hours and 5 minutes Baby A Gestational Status: Term (39-41.6 wks) Gestational Age in Weeks/Days: 41 Weeks and 0 Days Length-Baby A: 19.24 in Shoulder Dystocia Delivery Times Date of Delivery of Head: 10/18/23 Time of Delivery of the Head: 16:32 Head to Body Delivery Interval(minutes): 3 minutes Verify No Fundal Pressure Applied Fundal Pressure: No Pressure Applied Arm Under Sympisis Note: right shoulder Interventions 1st Intervention: Date: 10/18/23 Time: 16:32 SD Intervention: McRobert's Maneuver Note: minimal ability to push and hold position as patient was in tub, tub drained immediately 2nd Intervention: Date: 10/18/23 Time: 16:32 SD Intervention: Suprapubic Pressure Note: some movement with suprapubic 3rd Intervention: Date: 10/18/23 Time: 16:33 SD Intervention: Shabana's Maneuver (without ability to access baby, patient moved to out of tub to floor) 4th Intervention: Date: 10/18/23 Time: 16:34 SD Intervention: Wood's Maneuver Note: able to get posterior shoulder delivered and then anterior shoulder, used Emilee and suprapubic pressure as well
--- NOTE | 2023-10-18 17:57 | ANES.PREOP_ITS ---
General Info Date of Service Date Performed: 10/18/23 Height: 5 ft 2 in Weight: 104.78 kg Body Mass Index (BMI): 42.2 Surgical Procedure: Operation Date: 10/18/23 17:55 Proposed Procedure Side Surgeon p Anterior/Posterior Repair Not Applicable Bhumi Alegria DO Meds Allergies and Home Medications Allergies Allergy/AdvReac Type Severity Reaction Status Date / Time Tide Laundry Soap AdvReac Unknown Skin Rash Uncoded 10/11/23 13:59 Home Medication Medication Instructions Recorded albuterol sulfate 90 mcg/actuation 2 inh inhalation Q6H PRN 06/02/20 breath activated powder inhaler prenat.vits,maciej,[id number] 1 tab PO DAILY 06/23/21 vitamin B complex (B 1 tab PO DAILY 06/27/22 Complex-Vitamin B12 tablet) aspirin 81 mg tablet,delayed 81 mg PO .COMPLEX 04/11/23 release (Adult Low Dose Aspirin) aspirin 81 mg tablet,delayed 81 mg PO .COMPLEX 04/11/23 release (Adult Low Dose Aspirin) Current Visit Medications: Current Medications Generic Name Dose Route Start Last Admin Trade Name Freq PRN Reason Stop Dose Admin Acetaminophen 650 mg 10/18/23 17:21 Acetaminophen 325 Mg Tab PO Q4H PRN PRN Dibucaine 0 gm 10/18/23 17:21 Dibucaine 1% 28 Gm Tube TP TID PRN PRN Docusate Sodium 100 mg 10/18/23 17:21 Docusate Sodium 100 Mg Cap PO BID PRN PRN Ringer's Solution 1,000 mls @ 125 mls/hr 10/18/23 13:00 IV INFUSION PRN if oxytocin is needed for induction Oxytocin/Sodium Chloride 30 unit in 500 mls @ 95 mls/hr 10/18/23 17:30 Pitocin/Normal Saline IV INFUSION [facility] Protocol IV Miscellaneous Supplies 1 each 10/18/23 13:00 Iv Access IV DIRECTED [facility] Ibuprofen 600 mg 10/18/23 17:21 Ibuprofen 600 Mg Tab PO Q6H PRN PRN Lidocaine HCl 0 ml 10/18/23 17:21 Lidocaine 1% Multi-Dose 20 Ml Vial IJ DIRECTED PRN Magnesium Hydroxide 30 ml 10/18/23 17:21 Milk Of Magnesia 30 Ml Cup PO HS PRN PRN Misoprostol 400 mcg 10/18/23 17:21 Misoprostol 200 Mcg Tab SL 10/19/23 17:22 PRN PRN Oxytocin 10 units 10/18/23 17:30 Oxytocin 10 Units/Ml Vial IM 10/17/24 17:29 DIRECTED SUNNY Sodium Chloride 0 ml 10/18/23 12:59 10/18/23 13:57 Normal Saline Flush 10 Ml Syr IVP 5 ml PRN PRN Administration Sodium Chloride 0 ml 10/18/23 20:00 Normal Saline Flush 10 Ml Syr IVP BID SUNNY Sodium Chloride 0 ml 10/18/23 12:59 Normal Saline 10 Ml Vial IJ DIRECTED PRN Witch Lupis/Glycerin 0 each 10/18/23 17:21 Hamamelis Odum/Glycerin 100 Each Box PA PRN PRN Discomfort PFSH Active Problems Active Problems: Problem Status Onset Code 41 weeks gestation of O48.0, Z3A.41 History of gestational hypertension Z87.59 Z34.90 Acute adjustment disorder with anxiety F43.22 Seasonal affective disorder F33.8 BMI 35.0-35.9,adult Z68.35 Asthma J45.909 Medical History Medical History Cephalosporin adverse reaction COVID-19 virus infection Anitgen test+ on 08/27, pt vaccinated and boosted, mild sx Encounter for IUD insertion Family history of MRSA infection has had MRSA infections twice History of penicillin-type antibiotic allergy disorder, condition Low back pain Perineal laceration during delivery hemorrhage, delivered Routine follow-up Rubella non-immune status, antepartum Tobacco Smoking/Tobacco Use Status: Never Alcohol Alcohol Intake: never Substance Use Substance use: Never Substance use type: does not use Prental History History 2 2 Para 1 Hx # Term Pregnancies 1 Multiple births 0 Hx # Pregnancies 0 Ectopic pregnancies 0 AB induced 0 Hx Number of Living Children 1 AB spontaneous 0 Past Pregnancies Del. Date GA/Weeks # Preg Succ Route Wgt Sex Labor Lgth Anesth esia Location [facility] [place] 02/24/22 40 No Yes vaginal 3754.894 g Male 12hrs regional Glendy García CNM hemorrhage Delivery Date: 02/24/22 Last Updated by: Mary Pierce CNM IOL for gHTN, Late PPH after long pitocin induction and urinary retention of >950 cc. Total EBL 635cc. Did not require transfusion. Loreto Ramirez Vital Signs and Lab Results Vital Signs Most Recent Vital Signs in EMR: Most Recent Vital Signs Temp Pulse Resp BP 36.8 C 104 H 18 138/88 10/18/23 14:30 10/18/23 13:09 10/18/23 13:09 10/18/23 13:09 Lab Results 10/18/23 13:15 10/18/23 13:15 Blood Type / Crossmatch: 2 Antibody Screen NEGATIVE 10/18/23 Complete Blood Count: 2 White Blood Count 11.36 10^3/uL (4.4-10.8) H 10/18/23 13:15 Red Blood Count 4.84 10^6/uL (3.93-5.22) 10/18/23 13:15 Hemoglobin 13.9 g/dL (11.2-15.7) 10/18/23 13:15 Hematocrit 42.1 % (36.0-46.0) 10/18/23 13:15 Platelet Count 234 10^3/uL (130-400) 10/18/23 13:15 Complete Metabolic Panel: 2 Sodium 139 mmol/L (136-145) 10/18/23 13:15 Potassium 3.9 mmol/L (3.5-5.1) 10/18/23 13:15 Chloride 103 mmol/L (98-107) 10/18/23 13:15 Carbon Dioxide 25.9 mmol/L (21.0-32.0) 10/18/23 13:15 BUN 10 mg/dL (7-18) 10/18/23 13:15 Creatinine 0.5 mg/dL (0.55-1.02) L 10/18/23 13:15 Est GFR (CKD-EPI 2020) 130.94 (mL/min/1.73m2) 10/18/23 13:15 Calcium 9.4 mg/dL (8.5-10.1) 10/18/23 13:15 Albumin 2.8 g/dL (3.4-5.0) L 10/18/23 13:15 Glucose 81 mg/dL (74-106) 10/18/23 13:15 Liver Function Panel: 2 Alanine Aminotransferase (ALT/SGPT) 15 U/L (14-59) 10/18/23 13: 15 Aspartate Amino Transf (AST/SGOT) 14 U/L (15-37) L 10/18/23 13: 15 Coagulation Panel: 2 No Data to Display Cardiac Panel: 2 No Data to Display Arterial Blood Gas: 2 No Data to Display Venous Blood Gas: 2 No Data to Display Pancreas Panel: 2 No Data to Display Thyroid Panel: 2 No Data to Display Infectious Disease: 2 No Data to Display Blood Cultures: 2 No Data to Display Toxicology Panel: 2 No Data to Display Panel: 2 No Data to Display Anesthesia Assessment and Plan Anesthesia History Personal History: No History of Anesthesia Complications Family History: No Family History of Anesthesia Complications Exercise Tolerance Exercise Tolerance: Metabolic Equivalents>4 Pertinent Negatives Pertinent Negatives: No Major Cardiovascular Symptoms or Complaints and No Major Pulmonary Symptoms or Complaints Cardiac & Pulmonary Exam Cardiac Exam: Normal S1/S2 Heart Sounds Pulmonary Exam: Clear Bilateral Breath Sounds Implantable Cardiac Device Does patient have a Pacemaker or an ICD?: No Airway Exam Known Difficult Airway: No Mallampati Class: 2 Mouth Opening: Normal (> 3cm) Thyromental Distance: Greater than 3 cm Neck Range of Motion: Full ROM Neck Circumference: Normal Teeth Condition: Normal Dentition ASA Classification ASA Score: ASA 3 Emergency Case?: Yes NPO Status NPO Status: NPO Clears >2 hours, Solids >8 hours Status Status: Other () Anesthesia Plan Resuscitation Status: Full Code Anesthesia Technique: General Anesthesia Airway Planned: Endotracheal Tube Monitors Used: Standard Monitors Preoperative Comments:: Approx 2 L EBL PER surgeon
[2023-10-18] MEDS: Lactated Ringers 1,000 ML 30 ML IV (18:05)
[2023-10-18] MEDS: Normal Saline 1,000 ML 30 ML IV (18:05)
[2023-10-18] MEDS: Methylergonovine 0.2 MG/ML VIAL (18:30)
--- NOTE | 2023-10-18 18:30 | POCSPONT_PTH ---
PATIENT: Noris Stephens LOC: OBS U#:[id number] AGE/SX: 28/F ROOM: OBS.305 RE10/18/[address]: Mary Reyna CNM : 1995 BED: A DIS: 10/20/2023 SPEC #: [id number] RECD: 10/19/23 12:14 STATUS: ZOE REMariana #: [id number] MARICEL: 10/18/23 18:[address]: Mary Reyna DEPT: Surgical Specimen RECD BY: Bridget Lopez ENTERED: 10/19/23 12:15 SP TYPE: POCSPONT OTHR DR: Santino King Tissues: 1 - ,SPONTANEOUS Procedures: GROSS AND MICRO LEVEL 4 Comments: [id number]
[2023-10-18] MEDS: TRANEXAMIC ACID/SOD. CHL. 1,000 MG/100 ML BAG 600 MG (18:32)
[2023-10-18 19:20] LABS: HCT 41.8 % (36.0-46.0); HGB 13.6 g/dL (11.2-15.7)
--- NOTE | 2023-10-18 20:27 | ROE_ITS ---
Date of service: 10/18/23 Time of Service: 20:27 Operative Note Operative Note DATE OF PROCEDURE: 10/18/23 PRE-OP DIAGNOSIS: hemorrhage POST-OP DIAGNOSIS: same PROCEDURE: Exam under anesthesia, uterine curettage, placement of Tamra device SURGEON: Bhumi Alegria ANESTHESIA TYPE: General LMA/ETT Refer to Anesthesia Record ESTIMATED BLOOD LOSS: 800 PATHOLOGY: other (Uterine contents, suspect placental fragment) COMPLICATIONS: None Patient was transported to: PACU Patient's condition: stable Indications: hemorrhage Findings: No evidence of laceration of the cervix, vagina, or perineum. Clot expressed from the uterine fundus. Sharp uterine curettage revealed scant adherent t issue, possible placental fragment. Atony of the lower uterine segment warranting placement of the Rosita device Procedure Description: I was initially called to the center approximately 30 minutes status post vaginal delivery with shoulder dystocia. Patient had at that point expelled a placenta and had an active hemorrhage. She was attended by Anahi Reyna CNM and our nursing staff. Upon my presentation, she was continuing to have a moderate amount of brisk vaginal bleeding. Please see hemorrhage note per Anahi Reyna CNM. In light of ongoing vaginal bleeding and approximately 2 L of blood loss, the decision was made to take the patient to the operating room for further evaluation and exploration. The risk, benefits, and alternatives of surgical intervention including exam under anesthesia, uterine curettage, possible laparotomy were all explained to the patient in full informed consent was obtained. She understood the risk of bleeding, infection, injury to surrounding, risk of anesthesia. She was taken the operating suite with 2 large-bore IVs running. She was placed in the dorsal supine position and endotracheal intubation performed for the administration of general anesthesia with ease. She was then placed in the modified dorsolithotomy position in [facility] and prepped and draped in the usual sterile fashion. She had pneumatic compression stockings for DVT prophylaxis. In the operating room, she did receive a second dose of TXA, and a second dose of Hemabate for uterine to nicity. Initially, exam under anesthesia revealed a uterus that was firm at the fundus though with a wide open lower uterine segment. Manual exploration of the uterine cavity revealed scant tissue, and moderate clots. Lower uterine segment wrist remained somewhat atonic. Speculum was then inserted and the cervix inspected in a circumferential fashion. There is no evidence of cervical laceration that could be identified. Posterior vaginal vault was noted to be normal with no evidence of laceration or hematoma and there was no evidence of perineal laceration. With vigorous uterine massage, lower uterine segment massage, there is need noted to be ongoing lower segment atony. In light of this, a Tamra device was inserted to the fundus. Balloon inflated with 60 mL of normal saline and jaded device placed on suction at 80 mmHg. The uterus became firm including the lower uterine segment. Blood through the suction tubing was noted for a total of approximately 100 mL filling the suction tubing, with no further accumulation in the canister. With the Rosita in place, and hemodynamic stability apparent, procedure was terminated. As of note, the patient in addition to IV fluids and calcium did receive 2 units of packed red blood cells. At this point, she was returned to the dorsal supine position and awoke from anesthesia without difficulty. After period of time in the postanesthesia care unit, she was returned to the center with a Martinez catheter in place draining clear yellow urine and a Rosita device to suction at 80 mmHg. Plan will be to keep the Rosita in place for a period of observation. She will receive IV antibiotics which will be Ancef, 2 g IV every 6 while the Rosita is in place. She will receive ongoing Pitocin and misoprostol, 600 mcg orally. Will reevaluate her bleeding. My threshold for surgical intervention with hysterectomy is low. Patient has previously expressed desire for permanent sterilization. EBL: 800 mL Pathology: Uterine contents for examination Complications: None apparent Findings: Normal-appearing cervix, vagina, perineum. Firm fundus. Lower uterine segment atony, responsive to Tamra device. Fluids: Crystalloid per anesthesia and calcium along with 2 units of packed red blood cells.
[2023-10-18] MEDS: ceFAZolin 2,000 MG in Normal Saline 100 ML 200 MG IVPB (20:30)
--- NOTE | 2023-10-18 20:56 | W.ANESPOSTOP ---
Postoperative Evaluation Date, Time and Location Date Performed: 10/18/23 Time Performed: 19:24 Patient Location: Obstetrics Vital Signs Most Recent Imported Vital Signs: Most Recent Vital Signs Temp Pulse Resp BP Pulse Ox 36.5 C 94 H 19 111/82 100 10/18/23 19:24 10/18/23 20:30 10/18/23 19:24 10/18/23 20:30 10/18/23 19:24 Pain Score Most Recent Pain Score: Most Recent Pain Score Pain Level 0 10/18/23 19:24 Assessment Mental Status: Awake (Alert & Oriented to Patient Baseline) Airway and Respiratory Function: Patent airway with normal (patient baseline) respiratory exam Cardiovascular Function: Hemodynamically Stable Hydration Status: Adequately Hydrated Nausea & Vomiting: No Nausea or Vomiting Pain: Pt. Denies Any Pain Peripheral Nerve Block: Patient did not receive a nerve block
[2023-10-18] MEDS: Acetaminophen 325 MG TAB 650 MG PO (22:39)
[2023-10-18] MEDS: miSOPROStol 100 MCG TAB 600 MCG PO (23:33)
[2023-10-18] MEDS: Lactated Ringers 1,000 ML 125 ML IV (23:34)
[2023-10-19] VITALS (16 sets, daily range): BP systolic 99–134; BP diastolic 51–83; PULSE 82–126; RESP 16–18; TEMP 36.6–37.2; O2SAT 96–100
[2023-10-19 00:15] LABS: HGB 14.3 g/dL (11.2-15.7); MCH 28.9 pg (27.0-33.0); MCHC 32.5 % (32.0-36.0); MCV 89 fL (80-95); MPV 11.3 fL (8.0-11.0); Platelet Count 236 10^3/uL (130-400); RBC 4.94 10^6/uL (3.93-5.22); RDW 15.1 % (11.7-14.6); RDW-SD 49.1 fL
[2023-10-19 00:17] LABS: WBC 26.19 10^3/uL (4.4-10.8)
[2023-10-19] MEDS: ceFAZolin 1,000 MG VIAL 2000 MG IV (02:23)
[2023-10-19] MEDS: Normal Saline 100 ML (02:24)
--- NOTE | 2023-10-19 06:04 | W.PM.OBPNV1 ---
Date of service: 10/19/23 Time of Service: 06:04 Assessment and Plan Assessment and plan (1) care following vaginal delivery: Status: Acute Assessment and plan: 1. VS stable and patient is doing well overall 2. MD to assess and make plan for PP care (2) hemorrhage, delivered, current hospitalization: Status: Acute Assessment and plan: 1. PP hemorrhage due to lower uterine segment atony, well controlled by D&C and VIKTORIA placement 2. Since D&C VIKTORIA has collected approximately 75cc of blood into suction canister 3. CBC pending this morning, status post transfusion of 2 units PRBC's 4. Physician will manage PP VIKTORIA and plan of care at this time. ALEX (3) Lactating mother: Status: Acute Assessment and plan: 1. Breast feeding established and patient is experienced breast feeding Mother, continue present management. ALEX (4) Status post D&C: Status: Acute Assessment and plan: 1. Stable with VIKTORIA intact, will defer plan of care to Physician. ALEX (5) Shoulder dystocia, delivered, current hospitalization: Status: Acute Assessment and plan: 1. Environmental Services Specialist has talked with family about shoulder dystocia and praised them for being able to remain calm and take direction in order to facilitate delivery that began in tub and ended on Mat on floor next to the tub. Denies questions. 2. Continue to offer emotional support as family processes this event. Baby is doing well and rooming in. ALEX Subjective Subjective Interval history: sleeping off and on. has been able to nurse baby and feels well overall. CBC this morning is pending draw. [place] baby status: Doing well, Nursing well and Rooming in [place] feeding status: Exclusively breast feeding Exam Physical Exam Vital signs: Temp Pulse Resp BP Pulse Ox 97.9 F 106 H 17 120/80 99 10/19/23 01:22 10/19/23 03:36 10/19/23 03:36 10/19/23 03:36 10/19/23 03:36 Vital Signs Reviewed: Yes Constitutional Constitutional: no acute distress, obese and cooperative HEENT Exam HEENT Exam: Normal (visual exam) Neck Exam Neck Exam: Not Done Respiratory Exam Respiratory Exam: Normal Cardiovascular Exam Cardiovascular Exam: Normal (HR slightly elevated) Fundal Exam Fundus: Below Umbilicus and Firm Rectal Exam Rectal Exam: Not Done Exam Perineum: Intact and Normal Comments: VIKTORIA intact, perineum intact Extremities Exam Extremity Exam: Normal Comment: SCD's on Back/Spine/Pelvis Exam Back Exam: Not Done Results Hemoglobin/Hematocrit: Hgb 14.3 g/dL (11.2-15.7) 10/19/23 00:10 Hct 44.0 % (36.0-46.0) 10/19/23 00:10 Abnormal Lab Findings: Abnormal Labs 10/18/23 10/19/23 13:15 00:10 WBC 11.36 H 26.19 H* RDW 15.2 H 15.1 H MPV 11.7 H 11.3 H Creatinine 0.5 L AST 14 L Alkaline Phosphatase 171 H Albumin 2.8 L Crossmatch See Detail Hemorrrhage Note Hemorrhage Recognized Date Hemorrhage Recognized: 10/18/23 Time Hemorrhage Recognized: 16:51 Call for Help Date: 10/18/23 Time: 16:52 2nd RN in Room Date: 10/18/23 Time: 16:53 2nd RN: Alina Martinez Provider in Room Date: 10/18/23 Time: 16:55 Provider: Bhumi Alegria Bimanual Uterine Compression Date: 10/18/23 Time: 16:52 RN Glue Specialty Supervisor Notified Date: 10/18/23 Time: 16:56 RN Glue Specialty Supervisor on Floor Date: 10/18/23 Time: 16:58 Glue Specialty Supervisor: Seema Lima QBL Scale in Room Date: 10/18/23 Time: 16:55 OB Emergency Cart at Bedside Date: 10/18/23 Time: 16:55 Martinez Catheter Urinary Catheter Date of Insertion: 10/18/23 Time of insertion: 17:20 Urinary Catheter Size: 16 Balloon Size: 10 Inserted by: Maribell Total Blood Loss for PPH Event Quantitative Blood Loss: 1,500 Transported to OR Date: 10/18/23 Time: 18:00
[2023-10-19 06:41] LABS: HCT 35.5 % (36.0-46.0); MCH 29.2 pg (27.0-33.0); MCHC 33.8 % (32.0-36.0); MCV 86 fL (80-95); MPV 11.4 fL (8.0-11.0); Platelet Count 202 10^3/uL (130-400); RBC 4.11 10^6/uL (3.93-5.22); RDW 15.3 % (11.7-14.6); WBC 18.86 10^3/uL (4.4-10.8)
--- NOTE | 2023-10-19 07:00 | OBPPV_ITS ---
Date of service: 10/19/23 Time of Service: 07:00 Assessment and Plan Assessment and plan (1) care following vaginal delivery: Status: Acute Assessment and plan: Patient is and postoperative day #1 status post vaginal delivery with shoulder dystocia delivered. She had a significant hemorrhage and was brought to the operating room subsequently for exam under anesthesia uterine curettage and further evaluation of the cervix, vagina, and perineum. Uterus was firm the lower uterine segment was somewhat boggy and dilated. For this reason with some small amount of ongoing blood loss and Tamra was placed. This was maintained for the last 12 hours. The plan this morning will be to discontinue the jaded device from suction and evaluate bleeding. If this is stable, jaded device will be removed. If patient continues to have ongoing bleeding and blood loss the recommendation would be for hysterectomy. Patient has previously consented for tubal ligation. Risk benefits and alternatives of hysterectomy were discussed with the patient and her family this morning. OR was notified. We will assess labor staffing for appropriate care. Plan will be that midmorning we evaluate the need for ongoing Tamra versus surgical intervention. All questions were answered. Hemoglobin remained stable at 12.0. She does have an elevated white count which is not surprising considering delivery, and manipulation, and transfusion. She will continue to use misoprostol, and Ancef, 2 g every 6 hours until her device is removed. (2) hemorrhage, delivered, current hospitalization: Status: Acute (3) Status post D&C: Status: Acute (4) Shoulder dystocia, delivered, current hospitalization: Status: Acute Subjective Subjective Interval history: Patient seen and examined this morning labs reviewed. Patient feels well. She is taking clear liquids only. Urine output is adequate. Output from the Rosita is a total of 75 cc since placement. Repeat appears stable. Has had some diarrhea due to Hemabate. Uterus remains firm. Patient's Mood: Appropriate, offered chance to debrief. baby status: Doing well Exam Physical Exam Vital signs: Temp Pulse Resp BP Pulse Ox 98.8 F 87 17 124/83 98 10/19/23 06:43 10/19/23 06:43 10/19/23 06:43 10/19/23 06:43 10/19/23 06:43 Vital Signs Reviewed: Yes Notable Details: No further tachycardia HEENT Exam HEENT Exam: Normal Neck Exam Neck Exam: Normal Respiratory Exam Respiratory Exam: Normal Cardiovascular Exam Cardiovascular Exam: Normal Abdominal Exam Abdomen: Tender Fundal Exam Fundus: Below Umbilicus and Firm Additional findings Additional findings: Aixa in place with a total of 75 cc of output Results Hemoglobin/Hematocrit: Hgb 12.0 g/dL (11.2-15.7) D 10/19/23 06:05 Hct 35.5 % (36.0-46.0) L 10/19/23 06:05 Abnormal Lab Findings: Abnormal Labs 10/18/23 10/19/23 10/19/23 13:15 00:10 06:05 WBC 11.36 H 26.19 H* 18.86 H Hct 35.5 L RDW 15.2 H 15.1 H 15.3 H MPV 11.7 H 11.3 H 11.4 H Creatinine 0.5 L AST 14 L Alkaline Phosphatase 171 H Albumin 2.8 L Crossmatch See Detail Hemorrrhage Note Hemorrhage Recognized Date Hemorrhage Recognized: 10/18/23 Time Hemorrhage Recognized: 16:51 Call for Help Date: 10/18/23 Time: 16:52 2nd RN in Room Date: 10/18/23 Time: 16:53 2nd RN: Alina Martinez Provider in Room Date: 10/18/23 Time: 16:55 Provider: Bhumi Alegria Bimanual Uterine Compression Date: 10/18/23 Time: 16:52 RN Drying Machine Back Tender Notified Date: 10/18/23 Time: 16:56 RN Drying Machine Back Tender on Floor Date: 10/18/23 Time: 16:58 Drying Machine Back Tender: Seema Lima QBL Scale in Room Date: 10/18/23 Time: 16:55 OB Emergency Cart at Bedside Date: 10/18/23 Time: 16:55 Martinez Catheter Urinary Catheter Date of Insertion: 10/18/23 Time of insertion: 17:20 Urinary Catheter Size: 16 Balloon Size: 10 Inserted by: Maribell Total Blood Loss for PPH Event Quantitative Blood Loss: 1,500 Transported to OR Date: 10/18/23 Time: 18:00
[2023-10-19] MEDS: miSOPROStol 100 MCG TAB 600 MCG PO (08:35)
[2023-10-19] MEDS: Normal Saline Flush 10 ML SYR IVP (08:35)
[2023-10-19] MEDS: Lactated Ringers 1,000 ML 125 ML IV (08:36)
[2023-10-19] MEDS: ceFAZolin 2 GM/50 ML BAG IVPB (08:44)
--- NOTE | 2023-10-19 09:42 | OBPPV_ITS ---
Date of service: 10/19/23 Time of Service: 09:42 Assessment and Plan Assessment and plan (1) hemorrhage, delivered, current hospitalization: Status: Acute Assessment and plan: Status postsurgical intervention with exam under anesthesia, uterine curettage, and placement of a Rosita system for lower uterine segment atony. Currently stable. Hemodynamically stable. Device is now off suction. Will monitor. Remove jaded device if maintains stability. If further episodes of bleeding, hysterectomy would be neck step for hemorrhage control. Exam Physical Exam Vital signs: Temp Pulse Resp BP Pulse Ox 97.9 F 82 18 123/77 99 10/19/23 08:00 10/19/23 08:00 10/19/23 08:00 10/19/23 08:00 10/19/23 08:00 Narrative: Patient seen, continued scant blood in the canister. Hemodynamically stable. Vital signs are stable morning hemoglobin stable at 12. Tamra discontinued from suction, will reassess in 30 minutes if no significant bleeding, will remove Tamra and monitor. Patient will continue misoprostol at this point. She received a dose just prior to discontinuing vacuum for her Tamra. Anesthesia, OR, nursing all aware of the possibility though unlikely for need for surgical intervention with hysterectomy. All questions answered for the patient and her family. Results Hemoglobin/Hematocrit: Hgb 12.0 g/dL (11.2-15.7) D 10/19/23 06:05 Hct 35.5 % (36.0-46.0) L 10/19/23 06:05 Abnormal Lab Findings: Abnormal Labs 10/18/23 10/19/23 10/19/23 13:15 00:10 06:05 WBC 11.36 H 26.19 H* 18.86 H Hct 35.5 L RDW 15.2 H 15.1 H 15.3 H MPV 11.7 H 11.3 H 11.4 H Creatinine 0.5 L AST 14 L Alkaline Phosphatase 171 H Albumin 2.8 L Crossmatch See Detail Hemorrrhage Note Hemorrhage Recognized Date Hemorrhage Recognized: 10/18/23 Time Hemorrhage Recognized: 16:51 Call for Help Date: 10/18/23 Time: 16:52 2nd RN in Room Date: 10/18/23 Time: 16:53 2nd RN: Alina Martinez Provider in Room Date: 10/18/23 Time: 16:55 Provider: Bhumi Alegria Bimanual Uterine Compression Date: 10/18/23 Time: 16:52 RN Quality Assurance Consultant Notified Date: 10/18/23 Time: 16:56 RN Quality Assurance Consultant on Floor Date: 10/18/23 Time: 16:58 Quality Assurance Consultant: Seema Lima QBL Scale in Room Date: 10/18/23 Time: 16:55 OB Emergency Cart at Bedside Date: 10/18/23 Time: 16:55 Martinez Catheter Urinary Catheter Date of Insertion: 10/18/23 Time of insertion: 17:20 Urinary Catheter Size: 16 Balloon Size: 10 Inserted by: Maribell Total Blood Loss for PPH Event Quantitative Blood Loss: 1,500 Transported to OR Date: 10/18/23 Time: 18:00
--- NOTE | 2023-10-19 10:15 | W.PM.OBPNV1 ---
Date of service: 10/19/23 Time of Service: 10:15 Assessment and Plan Assessment and plan (1) hemorrhage, delivered, current hospitalization: Status: Acute Assessment and plan: Tamra device removed without difficulty. Hemodynamically stable. Continue to monitor vital signs and ongoing blood loss. Anticipate routine care. Subjective Subjective Interval history: Patient seen and examined. No increased bleeding with Rosita off suction. 60 cc balloon deflated and Rosita removed without difficulty. Will continue to monitor for further active bleeding. Reassess vital signs. I would anticipate that she will remain stable without increase in bleeding. All questions answered Exam Physical Exam Vital signs: Temp Pulse Resp BP Pulse Ox 97.9 F 104 H 18 117/57 L 100 10/19/23 09:00 10/19/23 10:00 10/19/23 10:00 10/19/23 10:00 10/19/23 10:00 Results Hemoglobin/Hematocrit: Hgb 12.0 g/dL (11.2-15.7) D 10/19/23 06:05 Hct 35.5 % (36.0-46.0) L 10/19/23 06:05 Abnormal Lab Findings: Abnormal Labs 10/18/23 10/19/23 10/19/23 13:15 00:10 06:05 WBC 11.36 H 26.19 H* 18.86 H Hct 35.5 L RDW 15.2 H 15.1 H 15.3 H MPV 11.7 H 11.3 H 11.4 H Creatinine 0.5 L AST 14 L Alkaline Phosphatase 171 H Albumin 2.8 L Crossmatch See Detail Hemorrrhage Note Hemorrhage Recognized Date Hemorrhage Recognized: 10/18/23 Time Hemorrhage Recognized: 16:51 Call for Help Date: 10/18/23 Time: 16:52 2nd RN in Room Date: 10/18/23 Time: 16:53 2nd RN: Alina Martinez Provider in Room Date: 10/18/23 Time: 16:55 Provider: Bhumi Alegria Bimanual Uterine Compression Date: 10/18/23 Time: 16:52 RN Cloth Finishing Range Back Tender Notified Date: 10/18/23 Time: 16:56 RN Cloth Finishing Range Back Tender on Floor Date: 10/18/23 Time: 16:58 Cloth Finishing Range Back Tender: Seema Lima QBL Scale in Room Date: 10/18/23 Time: 16:55 OB Emergency Cart at Bedside Date: 10/18/23 Time: 16:55 Martinez Catheter Urinary Catheter Date of Insertion: 10/18/23 Time of insertion: 17:20 Urinary Catheter Size: 16 Balloon Size: 10 Inserted by: Maribell Total Blood Loss for PPH Event Quantitative Blood Loss: 1,500 Transported to OR Date: 10/18/23 Time: 18:00
[2023-10-19] MEDS: Loperamide 2 MG CAP PO (10:58)
[2023-10-19] MEDS: Ibuprofen 600 MG TAB PO (16:00)
[2023-10-20 03:26] VITALS: BP 118/73; PULSE 76; RESP 17; TEMP 36.9; O2SAT 99
[2023-10-20 08:05] VITALS: BP 102/69; PULSE 86; RESP 16; TEMP 36.7; O2SAT 98
--- NOTE | 2023-10-20 08:51 | W.PM.OBDISCH ---
Date of service: 10/20/23 Time of Service: 08:52 DS: Diagnosis Discharge Diagnosis (1) hemorrhage, delivered, current hospitalization: Status: Acute Asessment and Plan: 1. Stable status post D&C and Rosita for uterine atony. Rosita was removed 10/18 in the morning and fundus has remained firm and there has been minimal lochia since. 2. Feels she is processing this well. Declines short interval follow up in office 3. Planning sterilization procedure for one of them, undecided who at this time. 4. Will RTO 2 and 6 weeks PP. Discharge Plan Disposition Patient Disposition: Home Condition: Good Discharge Details Reason For Visit: 41 Week Gestation Admit Date/Time: 10/18/23 12:59 Admit Provider: Mary Reyna Attending Provider: Mary Reyna Primary Care Provider: Santino King Hospital Course Hospital Course: AROM induction of labor due to advanced dilation and 41 weeks gestation. She progressed well with normal FHR's. Delivered head in tub but then shoulder dystocia requiring maneuvers and getting out of tub to deliver baby on mat on floor next to tub. Baby apgars 4/8/9 and weight 10lb. Patient had PPH due to atony of lower uterine segment that required D&C and Rosita to suction. 2 units blood given. VS stable, hgb 12. Normal PP course after removal of Rosita. Offered short interval follow up in office but patient declines and will return at 2 and 6 weeks PP. Planning sterilization for one of them. Home Meds and New Rx's Prescriptions: New docusate sodium [Colace] 100 mg Capsule 100 mg PO BID Qty: 90 0RF Continued vitamin B complex [B Complex-Vitamin B12] Tablet 1 tab PO DAILY albuterol sulfate 90 mcg/actuation aerosol powdr breath activated 2 inh inhalation Q6H PRN prenat.vits,maciej,[id number] Tablet 1 tab PO DAILY Discontinued aspirin [Adult Low Dose Aspirin] 81 mg tablet,delayed release (DR/EC) 81 mg PO .COMPLEX Rx Instructions: Monday, Monday and Monday aspirin [Adult Low Dose Aspirin] 81 mg tablet,delayed release (DR/EC) 81 mg PO .COMPLEX Rx Instructions: Monday, Monday, and Monday Discharge Instructions Instructions: Laxative, Stool Softeners (By mouth), Depression (GEN), Bleeding (GEN) Stand Alone Forms: BC Instructions, BC Post Vaginal Deliver Activity:: Activity as Tolerated Equipment/Supplies:: No Equipment Needed Diet:: As Tolerated Discharge Orders Discharge Orders: Discharge Order (Routine); Ordered 10/20/23 Ordered By: Mary Reyna OB:DS Summary Summary Vaginal Delivery Method: Spontaneaous Episiotomy Description: None Laceration Description: None Contraception Discussed Contraception Discussed: Yes (sterilization either male or female), [place] Infant Gender-Baby A: Male ([place]) weight: 10 lb 0.673 oz Disposition of Baby A: Home Status at Discharge Functional status at discharge: independent ambulation Overall status at discharge: patient is back to baseline Mental Status: mental status grossly normal Speech and Movement: speech and movement normal Mood: congruent mood Affect: normal affect Time Spent with Patient providing and/or coordinating discharge services: Less than 30 minutes Quality:SDOH Health Related Social Needs: No Data to Display Exam Physical Exam Vital signs: Temp Pulse Resp BP Pulse Ox 98.4 F 76 17 118/73 99 10/20/23 03:26 10/20/23 03:26 10/20/23 03:26 10/20/23 03:26 10/20/23 03:26 Vital Signs Reviewed: Yes Constitutional Constitutional: no acute distress, average body habitus and cooperative HEENT Exam HEENT Exam: Normal Neck Exam Neck Exam: Normal (normal visual inspection) Respiratory Exam Respiratory Exam: Normal Cardiovascular Exam Cardiovascular Exam: Normal Abdominal Exam Abdomen: Other (normal exam) Fundal Exam Fundus: Below Umbilicus and Firm Comment: small lochia noted. KH Rectal Exam Rectal Exam: Not Done Exam Perineum: Intact and Normal Extremities Exam Extremity Exam: Normal (denies calf tenderness) and Full ROM Back/Spine/Pelvis Exam Back Exam: Normal Skin Exam Skin Exam: Normal Neurological Exam Neurological Exam: Normal Psychiatric Exam Psychiatric Exam: Normal PFSH All Active Problems Shoulder dystocia, delivered, current hospitalization (Acute) Status post D&C (Acute) Lactating mother (Acute) hemorrhage, delivered, current hospitalization (Acute) care following vaginal delivery (Acute) Acute adjustment disorder with anxiety (Acute) Seasonal affective disorder (Acute) Per Patient BMI 35.0-35.9,adult (Acute) Asthma (Chronic) Medical History History of gestational hypertension 41 weeks gestation of Routine follow-up disorder, condition Perineal laceration during delivery hemorrhage, delivered Low back pain COVID-19 virus infection Anitgen test+ on 08/27, pt vaccinated and boosted, mild sx Rubella non-immune status, antepartum Family history of MRSA infection has had MRSA infections twice Cephalosporin adverse reaction History of penicillin-type antibiotic allergy Encounter for IUD insertion Family History Father Well adult Mother Well adult Paternal Aunt Breast cancer Social History Smoking/Tobacco Use Status: Never Smoking risk assessment performed?: Yes Alcohol Intake: never Drug use: Never Substance use type: does not use Housing: house Do you feel safe at home: Yes Do you feel safe in your relationship?: Yes History History 2 Para 1 Hx # Term Pregnancies 1 Multiple births 0 Hx # Pregnancies 0 Ectopic pregnancies 0 AB induced 0 Hx Number of Living Children 1 AB spontaneous 0 Past Pregnancies Del. Date GA/Weeks # Preg Succ Route Wgt Sex Labor Lgth Anesthesia Location [facility] 02/24/22 40 No Yes vaginal 8 lb 4.45 oz Male 12hrs regional BIBI [place] hemorrhage Delivery Date: 02/24/22 Last Updated by: Mary Pierce CNM IOL for gHTN, Late PPH after long pitocin induction and urinary retention of >950 cc. Total EBL 635cc. Did not require transfusion. Loreto Ramirez DS: Data Vitals/I&O Vitals and I&O: Vital Signs Temperature 98.4 F 10/20/23 03:26 Temperature 98.2 F 10/18/23 12:58 Temperature Source Oral 10/19/23 08:00 Temperature Source Oral 10/20/23 03:26 Pulse 76 10/20/23 03:26 Pulse 105 10/18/23 12:58 Pulse Rhythm Regular 10/19/23 22:21 Respiratory Rate 17 10/20/23 03:26 Respiratory Depth Normal 10/19/23 22:21 Blood Pressure 118/73 10/20/23 03:26 Blood Pressure 142/95 10/18/23 12:58 Blood Pressure Mean 88 10/20/23 03:26 Pulse Oximetry 99 10/20/23 03:26 Oxygen Delivery Method Room Air 10/19/23 08:00 Oxygen Flow Rate 0 10/19/23 08:00 Pain Level 3 10/19/23 16:00 Intake & Output 10/19/23 10/19/23 10/20/23 11:59 23:59 11:59 Intake Total 2900 / 2900 Output Total 5550 / 6900 1350 / 6900 1000 / 1000 Balance -2650 / -4000 -1350 / -4000 -1000 / -1000 Intake: IV 1000 / 1000 Oral 1900 / 1900 Output: Urine 5050 / 6400 1350 / 6400 1000 / 1000 Estimated Blood Loss 500 / 500 Other: Urine Color Pale Pale
[2023-10-20 11:55] VITALS: BP 108/64; PULSE 78; RESP 16; TEMP 36.7; O2SAT 99
== END 2023-10-20 11:55 | disposition home or self-care (01) | DRG 768 ==
LOC: BCD 13:09 → OBS 13:09
PROVIDERS: Advanced Practice Midwife; Obstetrics & Gynecology; Student in an Organized Health Care Education/Training Program; Admitting Provider Advanced Practice Midwife; PCP Nurse Practitioner Family; Visit Provider Advanced Practice Midwife
PROC: 10D17Z9 Manual Extraction of Products of Conception, Retained, Via Natural or Artificial Opening (ICD-10-PCS; CPT 57260; principal; 2023-10-18 17:55)
DX: O48.0 Post-term pregnancy (principal); Z37.0 Single live birth; Z3A.41 41 weeks gestation of pregnancy; O66.0 Obstructed labor due to shoulder dystocia; O72.1 Other immediate postpartum hemorrhage; O69.81X0 Labor and delivery complicated by cord around neck, without compression, not applicable or unspecified; O99.344 Other mental disorders complicating childbirth; F41.9 Anxiety disorder, unspecified; O77.0 Labor and delivery complicated by meconium in amniotic fluid; O99.52 Diseases of the respiratory system complicating childbirth; J45.909 Unspecified asthma, uncomplicated
CPT/HCPCS: 59160; 36415; 80053; 85027; 86850; 86900; 86901; 86920; 88305; 82565; 84156; 85014; 85018; 88307; J0690; J1100; J2210; J2405; J2590; J2704; P9016

== ENCOUNTER 2023-11-29 11:15 | Outpatient (REF) | payer SELFPAY ==
--- NOTE | 2023-11-29 10:45 | PAPFT_PTH ---
PATIENT: Noris Stephens LOC: [facility] U#:[id number] AGE/SX: 28/F ROOM: RE11/29/[address]: Mary Pierce : 1995 BED: DIS: 11/29/2023 SPEC #: [id number] RECD: 11/29/23 13:10 STATUS: ZOE REQ #: [id number] MARICEL: 11/29/23 10:[address]: Mary Pierce DEPT: [facility] [place] Cytology RECD BY: Bridget Lopez ENTERED: 11/29/23 13:11 SP TYPE: PAPFT OTHR DR: Santino King Tissues: 1 - CX/ENDOCX FOR PAP SMEARS Procedures: PAP THIN PREP/UVM Screening Comments: [id number]
== END 2023-11-29 11:16 | disposition home or self-care (01) ==
LOC: LBN 11:15
PROVIDERS: PCP Nurse Practitioner Family; Visit Provider Advanced Practice Midwife
DX: Z12.4 Encounter for screening for malignant neoplasm of cervix (principal)
CPT/HCPCS: 88142

== ENCOUNTER 2025-03-03 04:26 | Outpatient (CLI) | payer BC, SELFPAY ==
[2025-03-03 15:17] LABS: Abs Immature Grans 0.05 10^3/uL (0.0-0.06); HCT 41.4 % (36.0-46.0); HGB 13.7 g/dL (11.2-15.7); Immature Grans % 0.4 %; MCH 29.0 pg (27.0-33.0); MCHC 33.1 % (32.0-36.0); MCV 88 fL (80-95); MPV 10.8 fL (8.0-11.0); Platelet Count 265 10^3/uL (130-400); RBC 4.73 10^6/uL (3.93-5.22); RDW 13.3 % (11.7-14.6); RDW-SD 42.8 fL; WBC 11.71 10^3/uL (4.4-10.8)
[2025-03-03 15:31] LABS: Hemoglobin A1C 4.9 % (<5.7)
[2025-03-03 16:27] LABS: ALT 18 U/L (14-59); AST 11 U/L (15-37); Albumin 3.7 g/dL (3.4-5.0); Alkaline Phosphatase 53 U/L (46-116); Anion Gap 9.8 mmol/L (3-11); BUN 8 mg/dL (7-18); Bilirubin, Total 0.3 mg/dL (0.2-1.0); CO2 26.2 mmol/L (21.0-32.0); Calcium 9.2 mg/dL (8.5-10.1); Chloride 102 mmol/L (98-107); Estimated GFR 130.12 (mL/min/1.73m2); Glucose 78 mg/dL (74-106); Potassium 3.8 mmol/L (3.5-5.1); Sodium 138 mmol/L (136-145); Total Protein 7.4 g/dL (6.4-8.2)
[2025-03-04 19:17] LABS: Hepatitis C Ab w Rflx HCV PCR Negative (Negative)
[2025-03-04 19:18] LABS: HIV-1/2 Ag & Ab Screen Negative (Negative)
[2025-03-05 11:32] LABS: Rubella IgG Ab (UVM) Positive (See Note)
[2025-03-06 18:43] LABS: Syphilis IgG w/Reflex Nonreactive (Nonreactive)
== END 2025-03-03 04:27 | disposition home or self-care (01) ==
LOC: LBO 04:26
PROVIDERS: PCP Nurse Practitioner Family; Visit Provider Advanced Practice Midwife
DX: Z34.91 Encounter for supervision of normal pregnancy, unspecified, first trimester (principal)
CPT/HCPCS: 36415; 80053; 86787; 86803; 86850; 86900; 86901; 87340; 87389; 83036; 85025; 86762; 86780

== ENCOUNTER 2025-03-03 13:34 | Outpatient (REF) | payer BC, SELFPAY ==
[2025-03-03 18:20] LABS: PROTEIN < 6.0 mg/dL
[2025-03-05 12:35] LABS: Chlamydia Result Negative (Negative); GC Result Negative (Negative)
== END 2025-03-03 13:35 | disposition home or self-care (01) ==
LOC: LBN 13:34
PROVIDERS: PCP Nurse Practitioner Family; Visit Provider Advanced Practice Midwife
DX: Z34.91 Encounter for supervision of normal pregnancy, unspecified, first trimester (principal)
CPT/HCPCS: 87491; 87591; 82565; 84156; 87086